=== PATIENT | male | born 1985 | race Caucasian/White ===

== ENCOUNTER 2017-08-04 09:19 | Emergency (ER) | payer OTHER ==
[2017-08-04 09:44] VITALS: TEMP 97
[2017-08-04] MEDS ORDERED: PROPARACAINE 0.5% OPHTH DROPS 15 ML BTL RIGHT EYE STA (09:47)
[2017-08-04] MEDS ORDERED: TOBRAMYCIN 0.3% OPHTH DROPS 5 ML BTL RIGHT EYE STA (10:00)
--- NOTE | 2017-08-04 10:12 | ED ---
General Adult HPI - General Chief complaint: Eye Problems Stated complaint: EYE SWELLING AND PAIN Time Seen by Provider: 08/04/17 09:45 Source: patient, RN notes reviewed Mode of arrival: ambulatory Limitations: no limitations - History of Present Illness Initial comments: Patient's a 32-year-old male who presents emergency room today with a chief complaint of foreign body sensation to the right eye. He does admit that yesterday he was chopping some wood. He denies any specific injury or trauma at the time. He states as the day went on he began having increased irritation to the right eye. He states it was locally red when he went to bed. He states it woke up this morning with increased redness and some swelling locally. Does not that he's had some watery discharge. He does admit some blurry vision at times out of the right eye. States tetanus is up-to-date. He denies any other complaints or symptoms. Patient denies any recent fever, chills, shortness of breath, chest pain, back pain, abdominal pain, nausea or vomiting, numbness or tingling, dysuria or hematuria, constipation or diarrhea, headaches or visual changes, or any other complaints. - Related Data Previous Rx's Medication Instructions Recorded Tobramycin 0.3% Ophth Soln [Tobrex 1 - 2 drop BOTH EYES QID 7 Days 08/04/17 0.3% Ophth Soln] Allergies Allergy/AdvReac Type Severity Reaction Status Date / Time morphine Allergy Unknown Verified 08/04/17 10:00 Review of Systems ROS Statement: Those systems with pertinent positive or pertinent negative responses have been documented in the HPI. ROS Other: All systems not noted in ROS Statement are negative. Past Medical History Past Medical History: No Reported History History of Any Multi-Drug Resistant Organisms: None Reported Past Surgical History: Back Surgery Additional Past Surgical History / Comment(s): spine fusion Past Psychological History: No Psychological Hx Reported Smoking Status: Current every day smoker Past Alcohol Use History: Rare Past Drug Use History: None Reported General Exam - General Exam Comments Initial Comments: General: The patient is awake and alert, in no distress, and does not appear acutely ill. Eye: Pupils are equal, round and reactive to light, extra-ocular movements are intact. No nystagmus. Redness irritation to the right conjunctivae watery discharge. Ears, nose, mouth and throat: There are moist mucous membranes and no oral lesions. Neck: The neck is supple, there is no tenderness or JVD. Cardiovascular: There is a regular rate and rhythm. No murmur, rub or gallop is appreciated. Respiratory: Lungs are clear to auscultation, respirations are non-labored, breath sounds are equal. No wheezes, stridor, rales, or rhonchi. Musculoskeletal: Normal ROM, no tenderness. Strength 5/5. Sensation intact. Pulses equal bilaterally 2+. Neurological: A&O x 3. CN II-XII intact, There are no obvious motor or sensory deficits. Coordination appears grossly intact. Speech is normal. Skin: Skin is warm and dry and no rashes or lesions are noted. Psychiatric: Cooperative, appropriate mood & affect, normal judgment. Limitations: no limitations Course Vital Signs 08/04/17 09:41 Temperature 97 F L Pulse Rate 73 Respiratory 20 Rate Blood Pressure 115/81 O2 Sat by Pulse 98 Oximetry Procedures - Procedures Initial comment: Patient's right eye was anesthetized locally with proparacaine. This did relieve his symptoms. Was stained with fluorescein checked with Wood's lamp revealing a corneal abrasion at the 9 o'clock position. Lids were inverted and no foreign bodies seen. Patient will be discharged home on antibiotics. Medical Decision Making - Medical Decision Making Patient is advised follow-up chocolate refining roller in 2 days of symptoms have not completely resolved. Was started on antibiotics here in emergency room. His tetanus is up-to-date. Disposition Clinical Impression: Corneal abrasion Disposition: HOME SELF-CARE Condition: Good Instructions: Corneal Abrasion (ED) Additional Instructions: Please follow-up chocolate refining roller in 2 days if symptoms are not completely resolved. Please use antibiotic as discussed. Please return for any other concerns. Prescriptions: Tobramycin 0.3% Ophth Soln [Tobrex 0.3% Ophth Soln] 1 - 2 drop BOTH EYES QID 7 Days Referrals: Alex Vallecillo DO [Primary Care Provider] - 1-2 days Parth Longo MD [STAFF PHYSICIAN] - 1-2 days Time of Disposition: 10:00
[2017-08-04 10:54] VITALS: BP 130/80; PULSE 85; RESP 16
== END 2017-08-04 10:54 | disposition home or self-care (01) ==
LOC: EC 09:19
DX: S05.01XA Injury of conjunctiva and corneal abrasion without foreign body, right eye, initial encounter (principal); F17.200 Nicotine dependence, unspecified, uncomplicated; Z88.5 Allergy status to narcotic agent; X58.XXXA Exposure to other specified factors, initial encounter; Y93.89 Activity, other specified
CPT/HCPCS: 99283

== ENCOUNTER 2019-01-16 10:39 | Emergency (ER) | payer OTHER ==
[2019-01-16 10:45] VITALS: BP 130/89; PULSE 80; RESP 20; TEMP 97.5
--- NOTE | 2019-01-16 11:16 | ED ---
General Adult HPI - General Chief complaint: Upper Respiratory Infection Stated complaint: ENT Time Seen by Provider: 01/16/19 10:40 Source: patient, RN notes reviewed Mode of arrival: ambulatory Limitations: no limitations - History of Present Illness Initial comments: This is a 33-year-old male who presents emergency Department complaining of a fever of 101.2 this morning. Patient states she's had quite a sore throat over the last couple of days. He states he has had a cough with only minimal sputum production. Patient did not take anything for his temperature however have taken his temperature twice currently and it is normal. Patient denies any chest pain or palpitations. Patient denies any shortness of breath. Patient denies any abdominal pain patient denies nausea vomiting diarrhea. - Related Data Home Medications Medication Instructions Recorded Confirmed Cholecalciferol [Vitamin D3] 2,000 unit PO DAILY 01/16/19 01/16/19 Cyclobenzaprine [Flexeril] 10 mg PO TID PRN 01/16/19 01/16/19 Gabapentin [Neurontin] 300 mg PO TID 01/16/19 01/16/19 Gemfibrozil [Lopid] 600 mg PO AC-BID 01/16/19 01/16/19 HYDROcodone/APAP 10-325MG [[place] 1 tab PO QID PRN 01/16/19 01/16/19 10-325] Omeprazole 40 mg PO DAILY 01/16/19 01/16/19 Propranolol HCl [Inderal Xl] 120 mg PO DAILY 01/16/19 01/16/19 ZOLMitriptan [ZOLMitriptan Odt] 2.5 mg PO DAILY PRN 01/16/19 01/16/19 Previous Rx's Medication Instructions Recorded Amoxicillin 500 mg PO Q8H #30 capsule 01/16/19 Allergies Allergy/AdvReac Type Severity Reaction Status Date / Time morphine Allergy Unknown Verified 01/16/19 11:11 Review of Systems ROS Statement: Those systems with pertinent positive or pertinent negative responses have been documented in the HPI. ROS Other: All systems not noted in ROS Statement are negative. Past Medical History Past Medical History: GERD/Reflux, Hyperlipidemia Additional Past Medical History / Comment(s): Back pain, nerve pain, Migraines History of Any Multi-Drug Resistant Organisms: None Reported Past Surgical History: Back Surgery Additional Past Surgical History / Comment(s): spine fusion Past Psychological History: No Psychological Hx Reported Smoking Status: Current every day smoker Past Alcohol Use History: Rare Past Drug Use History: None Reported General Exam - General Exam Comments Initial Comments: GENERAL: Patient is well-developed and well-nourished. Patient is nontoxic and well- hydrated and is in mild distress. ENT: Neck is soft and supple. No significant lymphadenopathy is noted. Mildly erythematous. Moist mucous membranes. Neck has full range of motion without eliciting any pain. EYES: The sclera were anicteric and conjunctiva were pink and moist. Extraocular movements were intact and pupils were equal round and reactive to light. Eyelids were unremarkable. PULMONARY: Unlabored respirations. Good breath sounds bilaterally. No audible rales rhonchi or wheezing was noted. CARDIOVASCULAR: There is a regular rate and rhythm without any murmurs gallops or rubs. ABDOMEN: Soft and nontender with normal bowel sounds. SKIN: Skin is clear with no lesions or rashes and otherwise unremarkable. NEUROLOGIC: Patient is alert and oriented x3. Cranial nerves II through XII are grossly intact. Motor and sensory are also intact. Normal speech, volume and content. Symmetrical smile. MUSCULOSKELETAL: Normal extremities with adequate strength and full range of motion. No lower extremity swelling or edema. No calf tenderness. LYMPHATICS: No significant lymphadenopathy is noted PSYCHIATRIC: Normal psychiatric evaluation. Limitations: no limitations Course Vital Signs 01/16/19 10:41 Temperature 97.5 F L Pulse Rate 80 Respiratory 20 Rate Blood Pressure 130/89 O2 Sat by Pulse 97 Oximetry Medical Decision Making - Medical Decision Making Chest x-ray shows no acute abnormality. Rapid strep is negative. Influenza was negative. - Lab Data Lab Results 01/16/19 01/16/19 Range/Units 11:15 11:15 Influenza Type A RNA Not Detected (Not Detectd) Influenza Type B (PCR) Not Detected (Not Detectd) Group A Strep Rapid Negative (Negative) Disposition Clinical Impression: Pharyngitis Disposition: HOME SELF-CARE Condition: Good Prescriptions: Amoxicillin 500 mg PO Q8H #30 capsule Is patient prescribed a controlled substance at d/c from ED?: No Referrals: [facility]inic [Primary Care Provider] - 1-2 days Time of Disposition: 13:11
--- NOTE | 2019-01-16 11:43 | XR ---
EXAMINATION TYPE: XR chest 2V DATE OF EXAM: 01/16/2019 COMPARISON: NONE HISTORY: Cough, congestion and difficulty breathing TECHNIQUE: Frontal and lateral views of the chest are obtained. FINDINGS: There is no focal air space opacity, pleural effusion, or pneumothorax seen. The cardiac silhouette size is within normal limits. The osseous structures are intact. IMPRESSION: No acute cardiopulmonary process.
== END 2019-01-16 13:34 | disposition home or self-care (01) ==
LOC: EC 10:39
DX: J02.9 Acute pharyngitis, unspecified (principal); E78.5 Hyperlipidemia, unspecified; K21.9 Gastro-esophageal reflux disease without esophagitis; F17.200 Nicotine dependence, unspecified, uncomplicated; Z79.899 Other long term (current) drug therapy; Z88.5 Allergy status to narcotic agent
CPT/HCPCS: 71046; 87081; 87430; 87502; 99283

== ENCOUNTER 2020-08-31 19:45 | Emergency (ER) | payer OTHER ==
[2020-08-31 20:01] VITALS: BP 125/83; PULSE 78; RESP 16; TEMP 97.7
[2020-08-31] MEDS ORDERED: LIDOCAINE 1% INJ 10MG/ML (20 ML MDV) SQ ONE (20:02)
--- NOTE | 2020-08-31 20:24 | ED ---
Wound/Laceration HPI - General Chief Complaint: Wound/Laceration Stated Complaint: L Finger Lac Time Seen by Provider: 08/31/20 20:02 Source: patient Mode of arrival: ambulatory Limitations: no limitations - History of Present Illness Initial Comments: Patient is a 35-year-old male presenting to emergency department with chief complaint of a laceration. Patient states he fell and lacerated his left second digit on the grill. Patient states initially was quite a bit of bleeding which is since resolved. He states he is not on blood thinners. He denies any numbness or tingling. States he has full range of motion her left second digit. States his tetanus is up-to-date. Reports the pain is minimal. This occurred about one hour prior to arrival. - Related Data Home Medications Medication Instructions Recorded Confirmed Cholecalciferol [Vitamin D3] 2,000 unit PO DAILY 01/16/19 06/03/19 Cyclobenzaprine [Flexeril] 10 mg PO TID PRN 01/16/19 06/03/19 Gabapentin [Neurontin] 300 mg PO TID 01/16/19 06/03/19 HYDROcodone/APAP 10-325MG [[place] 1 tab PO QID PRN 01/16/19 06/03/19 10-325] Omeprazole 40 mg PO AC-BRKFST 01/16/19 06/03/19 Propranolol HCl [Inderal Xl] 120 mg PO DAILY 01/16/19 06/03/19 ZOLMitriptan [ZOLMitriptan Odt] 2.5 mg PO DAILY PRN MDD 10MG 01/16/19 06/03/19 gemfibroziL [Lopid] 600 mg PO AC-BID 01/16/19 06/03/19 Rosuvastatin [Crestor] 10 mg PO HS 06/03/19 06/03/19 Allergies Allergy/AdvReac Type Severity Reaction Status Date / Time morphine Allergy Unknown Verified 08/31/20 19:59 Review of Systems ROS Statement: Those systems with pertinent positive or pertinent negative responses have been documented in the HPI. ROS Other: All systems not noted in ROS Statement are negative. Past Medical History Past Medical History: GERD/Reflux, Hyperlipidemia Additional Past Medical History / Comment(s): Back pain, nerve pain, Migraines History of Any Multi-Drug Resistant Organisms: None Reported Past Surgical History: Back Surgery Additional Past Surgical History / Comment(s): spine fusion Past Psychological History: No Psychological Hx Reported Smoking Status: Current every day smoker Past Alcohol Use History: Occasional Past Drug Use History: None Reported General Exam Limitations: no limitations General appearance: alert, in no apparent distress Head exam: Present: atraumatic, normocephalic, normal inspection Eye exam: Present: normal appearance, PERRL, EOMI Pupils: Present: normal accommodation ENT exam: Present: normal exam, normal oropharynx, mucous membranes moist Neck exam: Present: normal inspection, full ROM. Absent: tenderness, meningismus Respiratory exam: Present: normal lung sounds bilaterally. Absent: respiratory distress, wheezes, rales Cardiovascular Exam: Present: regular rate, normal rhythm, normal heart sounds. Absent: systolic murmur, diastolic murmur, rubs, gallop, clicks GI/Abdominal exam: Present: soft, normal bowel sounds. Absent: distended, tenderness, guarding, rebound, rigid Extremities exam: Present: full ROM, normal capillary refill, other (+2 ulnar and radial pulses bilaterally.). Absent: normal inspection (Superficial laceration measuring less than 1 cm the left second digit.), tenderness Back exam: Present: normal inspection, full ROM. Absent: tenderness, CVA tenderness (R), CVA tenderness (L) Neurological exam: Present: alert, oriented X3 Psychiatric exam: Present: normal affect, normal mood Skin exam: Present: warm, dry, intact, normal color Course Vital Signs 08/31/20 19:59 Temperature 97.7 F Pulse Rate 78 Respiratory 16 Rate Blood Pressure 125/83 O2 Sat by Pulse 99 Oximetry Procedures - Laceration Laceration #1 Consent Obtained: verbal consent Indication: laceration Site: hand (Left second digit) Size (cm): 1 Description: linear, clean Depth: simple, single layer Sedation/Analgesia: none Pre-repair: irrigated extensively, deep structures intact Type of Sutures: nylon Size of Sutures: 4-0 Number of Sutures: 1 Technique: simple, interrupted Patient Tolerated Procedure: well, no complications Medical Decision Making - Medical Decision Making Patient is a 35-year-old male presenting to the emergency department with a chief complaint of laceration. Physical examination patient is neurovascularly intact in the left second digit. Laceration site was thoroughly irrigated and closed with one suture. Patient tolerated procedure well. Strict return parameters were thoroughly discussed with patient admits any degree well. Case discussed with physician. Disposition Clinical Impression: Laceration Disposition: HOME SELF-CARE Condition: Stable Instructions (If sedation given, give patient instructions): Care For Your Stitches (DC), Laceration (DC) Additional Instructions: Please return to the emergency room in 8-10 days to have sutures removed. Please watch for any signs of infection which may include increased pain, swelling, redness, fever or chills. Please return to emergency room for any signs of infection do occur. Please use clean soap and water over the area to prevent scabbing over your stitches. Please leave wound covered for the first 24-48 hours and then leave wound open to air. Please return to the emergency room for any other concerns. Is patient prescribed a controlled substance at d/c from ED?: No Referrals: [facility],Clinic [Primary Care Provider] - 1-2 days Time of Disposition: 20:24
== END 2020-08-31 20:35 | disposition home or self-care (01) ==
LOC: EC 19:45
DX: S61.211A Laceration without foreign body of left index finger without damage to nail, initial encounter (principal); K21.9 Gastro-esophageal reflux disease without esophagitis; E78.5 Hyperlipidemia, unspecified; M54.9 Dorsalgia, unspecified; M79.2 Neuralgia and neuritis, unspecified; G43.909 Migraine, unspecified, not intractable, without status migrainosus; F17.200 Nicotine dependence, unspecified, uncomplicated; Z79.899 Other long term (current) drug therapy; Z88.5 Allergy status to narcotic agent; W18.09XA Striking against other object with subsequent fall, initial encounter; Y99.0 Civilian activity done for income or pay
CPT/HCPCS: 12001; 99282

== ENCOUNTER 2020-12-12 06:13 | Day surgery (SDC) | payer OTHER ==
[2020-12-06 10:28] VITALS: BMI 33.5
[~2020-12-12 06:13] MED LIST: DEXAMETHASONE SOD PHOSPHATE 4 MG/ML 1 ML VIAL IV ONE; HYDROmorphone 0.5 MG/0.5 ML SYRINGE IVP PRN; LACTATED RINGERS 1,000 ML IV SCH; Pre Op ABX Message 1 EACH MISC MISCELLANE ONE
[2020-12-12] MEDS ORDERED: ACETAMINOPHEN TAB 500 MG TAB PO STA (06:47)
[2020-12-12] MEDS ORDERED: GABAPENTIN 300 MG CAP PO STA (06:47)
--- NOTE | 2020-12-12 06:49 | P.GSHP ---
History of Present Illness H&P Date: 12/12/20 CHIEF COMPLAINT: Neck mass HISTORY OF PRESENT ILLNESS: The patient is a 35 year-old male with history of mass along the left neck. He presents today for surgical excision. PAST MEDICAL HISTORY: Please see list. PAST SURGICAL HISTORY: Please see list. MEDICATIONS: Please see list. ALLERGIES: Please see list. SOCIAL HISTORY: No illicit drug use FAMILY HISTORY: No reports of Crohn disease or ulcerative colitis. REVIEW OF ORGAN SYSTEMS: CONSTITUTIONAL: No reports of fevers or chills. GI: Denies any blood in stools or constipation. PHYSICAL EXAM: VITAL SIGNS: Stable SKIN: Well perfused. Good skin turgor. 2 cm lesion overlying the left neck Musculoskeletal: No clubbing cyanosis or edema GENERAL: Well developed and in no acute distress. Pleasant. HEENT: No sclera icterus. Extraocular movements grossly intact. Moist buccal mucosa. Head is atraumatic, normocephalic. Hears conversational speech. No nasal drainage. NECK: Supple without lymphadenopathy. No JV distention. CHEST: Non-labored respirations and equal bilateral excursions. CARDIOVASCULAR: Regular rate and rhythm. Palpable 2+ radial pulses. ABDOMEN: Soft. Non-tender. Nondistended. NEUROLOGIC: No focal or lateralizing signs. PSYCH: Appropriate affect. Alert and oriented to person, place and time. ASSESSMENT: 1. Left neck mass PLAN: 1. His lipoma appears to be deep and an injury to the nerve including decreased sensation along the shoulder was described with surgical intervention. 2. Excision under general anesthetic described. Surgery under general anesthesia presents with increased risk for cardiopulmonary events. 3. He was advised to avoid supplements such as vitamins A, D, K that may i ncrease risk for bleeding, which the patient understood. 4. Time off for recovery at least one week including wound and dressing changes described. Past Medical History Past Medical History: GERD/Reflux, Hyperlipidemia Additional Past Medical History / Comment(s): Back pain, nerve pain, Migraines History of Any Multi-Drug Resistant Organisms: None Reported Past Surgical History: Back Surgery Additional Past Surgical History / Comment(s): spine fusion Past Anesthesia/Blood Transfusion Reactions: No Reported Reaction Smoking Status: Current every day smoker - Past Family History Mother Family Medical History: No Reported History Medications and Allergies Home Medications Medication Instructions Recorded Confirmed Type Cyclobenzaprine [Flexeril] 10 mg PO TID PRN 01/16/19 12/12/20 History Omeprazole 40 mg PO AC-BRKFST 01/16/19 12/12/20 History Propranolol HCl [Inderal Xl] 120 mg PO DAILY 01/16/19 12/12/20 History ZOLMitriptan [ZOLMitriptan Odt] 2.5 mg PO DAILY PRN MDD 10MG 01/16/19 12/12/20 History gemfibroziL [Lopid] 600 mg PO AC-BID 01/16/19 12/12/20 History Rosuvastatin [Crestor] 10 mg PO HS 06/03/19 12/12/20 History Allergies Allergy/AdvReac Type Severity Reaction Status Date / Time morphine Allergy Rash/Hives Verified 12/12/20 06:42
[2020-12-12 07:03] VITALS: RESP 16; TEMP 97.3
[2020-12-12] MEDS ORDERED: LIDOCAINE 1% (10MG/ML) FOR IV START INTRADERMA ONE (07:05)
[2020-12-12] MEDS: ONDANSETRON 4 MG/2 ML VIAL IVP ONE ×3 (07:06→09:44)
[2020-12-12] MEDS ORDERED: fentaNYL (PF) 50 MCG/ML 2 ML AMP ONE (07:30)
[2020-12-12] MEDS ORDERED: PROPOFOL 10 MG/ML 20 ML VIAL IV ONE (07:30)
[2020-12-12] MEDS ORDERED: MIDAZOLAM 2 MG/2 ML VIAL ONE (07:30)
[2020-12-12] MEDS ORDERED: LIDOCAINE 1% INJ 10MG/ML (20 ML MDV) ONE (07:30)
[2020-12-12] MEDS ORDERED: SUCCINYLCHOLINE CHLORIDE 100 MG/5 ML SYR IV ONE (07:30)
[2020-12-12] MEDS ORDERED: LIDOCAINE 1%-EPI 1:100,000 20 ML VIAL SQ ONE ×2 (08:36→09:15)
[2020-12-12] MEDS ORDERED: LACTATED RINGERS 1,000 ML IV ONE (08:52)
--- NOTE | 2020-12-12 09:55 | P.OP ---
Date of Procedure: 12/12/20 Description of Procedure: SURGEON: LAKISHA OBRIEN MD [employer]: None. PREOPERATIVE DIAGNOSES: 1. Left posterior neck mass 2. Pre-existing left hand neuropathy 3. Hyperlipidemia 4. Chronic migraines 5. Chronic back pain POSTOPERATIVE DIAGNOSES: 1. Deep subfascial left posterior neck mass, 4 x 5 cm 1. Left posterior neck mass, 4 cm 2. Pre-existing left hand neuropathy 3. Hyperlipidemia 4. Chronic migraines 5. Chronic back pain PROCEDURES PERFORMED: 1. Excision of deep subfascial posterior left neck mass, 4 x 5 cm 2. Complex closure of left posterior neck incision, 5-cm Anesthesia: GETA, local Estimated Blood Loss (ml): 20 Pathology: other (neck mass) Condition: stable Disposition: same day COMPLICATIONS: None. FINDINGS: 1. 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 Benefits and risks of surgical intervention were described including bleeding, infection. Informed consent was obtained. DESCRIPTION OR PROCEDURE: In the preoperative area, the area of concern was marked with indelible marker. Patient was brought into the operating room. After general induction, he was repositioned in the left lateral decubitus position. The left neck and left shoulder were prepped and draped in a standard sterile fashion with ChloraPrep. Timeout protocol was confirmed with the surgical team regarding the patient's name, procedure to be performed including preoperative medications. DVT prophylaxis was confirmed with SCDs including heparin. A field block was placed of the left neck. At the posterior neck, a longitudinal incision was made using #15 blade. Electro-Bovie cautery including blunt dissection using hemostat was used to circumferential dissect the tumor that extended deep to the fascia of the left neck at the posterior triangle. The tumor interdigitated along the bilateral neck and base of the skull. The tumor was removed in total. Hemostasis was excellent. The incision was closed in layers 0-Vicryl was placed for fascia, 3-0 Vicryl for the deep subcutaneous tissue followed by 4-0 Monocryl for the dermis in a running subcuticular fashion. The skin was cleansed and Exofin tape with liquid was applied as a fourth layer. The incision was covered with Optifoam dressing. Local anesthetic was placed. At the end of the procedure, needle, sponge, and instrument count was verified correct by printer technician. Operative findings was shared with the patient's family who were pleased with the level of care. Plan - Discharge Summary Discharge Rx Participant: No New Discharge Prescriptions: New Ibuprofen [Motrin] 600 mg PO Q8HR PRN #30 tab PRN Reason: Pain Acetaminophen Tab [Tylenol Tab] 1,000 mg PO Q6HR PRN #30 tablet PRN Reason: Pain Continue Omeprazole 40 mg PO AC-BRKFST ZOLMitriptan [ZOLMitriptan Odt] 2.5 mg PO DAILY PRN MDD 10MG PRN Reason: Migraine Headache Propranolol HCl [Inderal Xl] 120 mg PO DAILY gemfibroziL [Lopid] 600 mg PO AC-BID Cyclobenzaprine [Flexeril] 10 mg PO TID PRN PRN Reason: MUSCLE SPASMS Rosuvastatin [Crestor] 10 mg PO HS Discharge Medication List Cyclobenzaprine [Flexeril] 10 mg PO TID PRN 01/16/19 [History] Omeprazole 40 mg PO AC-BRKFST 01/16/19 [History] Propranolol HCl [Inderal Xl] 120 mg PO DAILY 01/16/19 [History] ZOLMitriptan [ZOLMitriptan Odt] 2.5 mg PO DAILY PRN MDD 10MG 01/16/19 [History] gemfibroziL [Lopid] 600 mg PO AC-BID 01/16/19 [History] Rosuvastatin [Crestor] 10 mg PO HS 06/03/19 [History] Acetaminophen Tab [Tylenol Tab] 1,000 mg PO Q6HR PRN #30 tablet 12/12/20 [Rx] Ibuprofen [Motrin] 600 mg PO Q8HR PRN #30 tab 12/12/20 [Rx] Follow up Appointment(s)/Referral(s): Lakisha Obrien MD [STAFF PHYSICIAN] - 12/13/20 Patient Instructions/Handouts: Lipoma Removal (DC) Activity/Diet/Wound Care/Special Instructions: DO NOT REMOVE DRESSING. No lifting over 10 pounds in 2 weeks, Dec 26April shower. No bath tub soaks for two weeks, Dec 26 Diet as tolerated. Notify surgeon for temperature over 101.5, increased redness along incision, increased pain along surgical site. Discharge Disposition: HOME SELF-CARE
[2020-12-12 11:56] VITALS: BP 127/85; PULSE 77
== END 2020-12-12 11:58 | disposition home or self-care (01) ==
LOC: OR 06:13
PROVIDERS: ATTEND Surgery Plastic and Reconstructive Surgery
DX: D17.0 Benign lipomatous neoplasm of skin and subcutaneous tissue of head, face and neck (principal); E78.5 Hyperlipidemia, unspecified; G43.909 Migraine, unspecified, not intractable, without status migrainosus; G62.9 Polyneuropathy, unspecified; G89.29 Other chronic pain; M54.9 Dorsalgia, unspecified; F17.210 Nicotine dependence, cigarettes, uncomplicated; Z88.5 Allergy status to narcotic agent; K21.9 Gastro-esophageal reflux disease without esophagitis; Z98.1 Arthrodesis status; Z98.890 Other specified postprocedural states
CPT/HCPCS: 21554; 88304; J2250; J1100; J0690; J2405; J2001; J3010; J0330; J2704

== ENCOUNTER 2021-10-02 22:41 | Emergency (ER) | payer OTHER ==
[2021-10-02 22:58] VITALS: BP 147/96; PULSE 60; RESP 18; TEMP 98.1
--- NOTE | 2021-10-02 23:42 | XR ---
EXAMINATION TYPE: XR finger RT DATE OF EXAM: 10/02/2021 COMPARISON: NONE HISTORY: Pain TECHNIQUE: 3 views FINDINGS: There is nondisplaced fracture of the shaft of the distal phalanx of the ring finger right hand. Fractures longitudinal and extends from the tuft to the IP joint. There is no dislocation. Join t spaces are normal. IMPRESSION: Longitudinal nondisplaced fracture of the distal phalanx ring finger right hand.
[2021-10-03] MEDS ORDERED: ACETAMINOPHEN TAB 325 MG TAB PO STA (00:06)
[2021-10-03] MEDS ORDERED: Acetaminophen-Codeine 300-30mg TAB PO STA (00:06)
[2021-10-03] MEDS ORDERED: IBUPROFEN 800 MG TAB PO STA (00:06)
[2021-10-03] MEDS ORDERED: IBUPROFEN 600 MG STARTER PACK 4 TAB BTL PO STA (00:07)
[2021-10-03] MEDS ORDERED: ACET/COD 300 MG/30 MG STARTER PACK 6 TAB BTL PO STA (00:07)
--- NOTE | 2021-10-03 00:11 | ED ---
Upper Extremity HPI - General Chief Complaint: Extremity Injury, Upper Stated Complaint: finger injury Time Seen by Provider: 10/02/21 23:38 Source: patient, family, RN notes reviewed, old records reviewed Mode of arrival: ambulatory Limitations: no limitations - History of Present Illness Initial Comments: This is a 36-year-old male to the ER today. Patient presents today for injury, patient has significant swelling of fourth digit occurring while working. Patient is finger injury, severe pain. Swelling and bruising this injury occurred at work. He has decreased range of motion secondary to pain. Pain is severe, no significant amount underneath nailbed, no other injuries noted MD Complaint: Injury to:: left, finger (Ring) Handedness: right Place: work Severity scale (1-10): 10 Improves With: none Worsens With: none Context: direct blow Associated Symptoms: denies other symptoms Treatments Prior to Arrival: other (ice) - Related Data Home Medications Medication Instructions Recorded Confirmed Cyclobenzaprine [Flexeril] 10 mg PO TID PRN 01/16/19 12/12/20 Omeprazole 40 mg PO AC-BRKFST 01/16/19 12/12/20 Propranolol HCl [Inderal Xl] 120 mg PO DAILY 01/16/19 12/12/20 ZOLMitriptan [ZOLMitriptan Odt] 2.5 mg PO DAILY PRN MDD 10MG 01/16/19 12/12/20 gemfibroziL [Lopid] 600 mg PO AC-BID 01/16/19 12/12/20 Rosuvastatin [Crestor] 10 mg PO HS 06/03/19 12/12/20 Previous Rx's Medication Instructions Recorded Acetaminophen Tab [Tylenol Tab] 1,000 mg PO Q6HR PRN #30 tablet 12/12/20 Ibuprofen [Motrin] 600 mg PO Q8HR PRN #30 tab 12/12/20 Allergies Allergy/AdvReac Type Severity Reaction Status Date / Time morphine Allergy Rash/Hives Verified 10/02/21 22:58 Review of Systems ROS Statement: Those systems with pertinent positive or pertinent negative responses have been documented in the HPI. ROS Other: All systems not noted in ROS Statement are negative. Past Medical History Past Medical History: GERD/Reflux, Hyperlipidemia Additional Past Medical History / Comment(s): Back pain, nerve pain, Migraines History of Any Multi-Drug Resistant Organisms: None Reported Past Surgical History: Back Surgery Additional Past Surgical History / Comment(s): spine fusion Past Anesthesia/Blood Transfusion Reactions: No Reported Reaction Past Psychological History: No Psychological Hx Reported Smoking Status: Current every day smoker Past Alcohol Use History: Occasional Past Drug Use History: None Reported - Past Family History Mother Family Medical History: No Reported History General Exam Limitations: no limitations General appearance: alert, in no apparent distress Head exam: Present: atraumatic, normocephalic, normal inspection Eye exam: Present: normal appearance, PERRL, EOMI. Absent: scleral icterus, conjunctival injection, periorbital swelling ENT exam: Present: normal exam, mucous membranes moist Neck exam: Present: normal inspection. Absent: tenderness, meningismus, lymphadenopathy Respiratory exam: Present: normal lung sounds bilaterally. Absent: respiratory distress, wheezes, rales, rhonchi, stridor Cardiovascular Exam: Present: regular rate, normal rhythm, normal heart sounds. Absent: systolic murmur, diastolic murmur, rubs, gallop, clicks GI/Abdominal exam: Present: soft, normal bowel sounds. Absent: distended, tenderness, guarding, rebound, rigid Extremities exam: Present: normal inspection, full ROM, normal capillary refill, other (severe swelling and bruising of his right ring finger). Absent: tenderness, pedal edema, joint swelling, calf tenderness Back exam: Present: normal inspection Neurological exam: Present: alert, oriented X3, CN II-XII intact Psychiatric exam: Present: normal affect, normal mood Skin exam: Present: warm, dry, intact, normal color. Absent: rash Course Vital Signs 10/02/21 22:56 Temperature 98.1 F Pulse Rate 60 Respiratory 18 Rate Blood Pressure 147/96 O2 Sat by Pulse 96 Oximetry - Reevaluation(s) Reevaluation #1: 10/03/21 00:09 Medical records reviewed Reevaluation #2: 10/03/21 00:09 Pain is improved Reevaluation #3: 10/03/21 00:09 Patient informed results and questions answered Medical Decision Making - Medical Decision Making 36 male to the emergency. Patient significant swelling of right ring finger secondary to traumatic injury. Patient does have fracture noted of the distal phalanx, patient given splint pain control can be discharged home - Radiology Data Radiology results: report reviewed (X-ray right hand positive for fracture), image reviewed Disposition Clinical Impression: Fracture of phalanx of ring finger, Finger fracture, right Disposition: HOME SELF-CARE Condition: Good Instructions (If sedation given, give patient instructions): Finger Fracture (ED) Is patient prescribed a controlled substance at d/c from ED?: No Referrals: [facility],Clinic [Primary Care Provider] - 1-2 days
== END 2021-10-03 00:48 | disposition home or self-care (01) ==
LOC: EC 22:41
DX: S62.634A Displaced fracture of distal phalanx of right ring finger, initial encounter for closed fracture (principal); K21.9 Gastro-esophageal reflux disease without esophagitis; E78.5 Hyperlipidemia, unspecified; F17.200 Nicotine dependence, unspecified, uncomplicated; Z88.5 Allergy status to narcotic agent; X58.XXXA Exposure to other specified factors, initial encounter
CPT/HCPCS: 99284

== ENCOUNTER 2021-10-25 08:38 | Emergency (ER) | payer OTHER ==
[2021-10-25 08:57] VITALS: RESP 18
[2021-10-25] MEDS ORDERED: ACETAMINOPHEN TAB 500 MG TAB PO STA (08:58)
[2021-10-25] MEDS ORDERED: IBUPROFEN 600 MG TAB PO STA (08:58)
[2021-10-25] MEDS ORDERED: ACETAMINOPHEN TAB 325 MG TAB PO STA (09:02)
--- NOTE | 2021-10-25 10:24 | ED ---
General Adult HPI - General Chief complaint: ENT Stated complaint: Fever/Headache/Sore throat Time Seen by Provider: 10/25/21 08:58 Source: patient, RN notes reviewed Mode of arrival: ambulatory Limitations: no limitations - History of Present Illness Initial comments: This a 36-year-old male presents emergency Department with complaint of fever or chills sore throat mild congestion. Symptoms started this morning. Patient was sent in for COVID-19 testing. Denies any chest pain or shortness breath no GI symptoms including nausea, vomiting, diarrhea constipation. - Related Data Home Medications Medication Instructions Recorded Confirmed Cyclobenzaprine [Flexeril] 10 mg PO TID PRN 01/16/19 12/12/20 Omeprazole 40 mg PO AC-BRKFST 01/16/19 12/12/20 Propranolol HCl [Inderal Xl] 120 mg PO DAILY 01/16/19 12/12/20 ZOLMitriptan [ZOLMitriptan Odt] 2.5 mg PO DAILY PRN MDD 10MG 01/16/19 12/12/20 gemfibroziL [Lopid] 600 mg PO AC-BID 01/16/19 12/12/20 Rosuvastatin [Crestor] 10 mg PO HS 06/03/19 12/12/20 Previous Rx's Medication Instructions Recorded Acetaminophen Tab [Tylenol Tab] 1,000 mg PO Q6HR PRN #30 tablet 12/12/20 Ibuprofen [Motrin] 600 mg PO Q8HR PRN #30 tab 12/12/20 Allergies Allergy/AdvReac Type Severity Reaction Status Date / Time morphine Allergy Rash/Hives Verified 10/25/21 08:57 Review of Systems ROS Statement: Those systems with pertinent positive or pertinent negative responses have been documented in the HPI. ROS Other: All systems not noted in ROS Statement are negative. Past Medical History Past Medical History: GERD/Reflux, Hyperlipidemia Additional Past Medical History / Comment(s): Back pain, nerve pain, Migraines History of Any Multi-Drug Resistant Organisms: None Reported Past Surgical History: Back Surgery Additional Past Surgical History / Comment(s): spine fusion Past Anesthesia/Blood Transfusion Reactions: No Reported Reaction Past Psychological History: No Psychological Hx Reported Smoking Status: Current every day smoker Past Alcohol Use History: Rare Past Drug Use History: None Reported - Past Family History Mother Family Medical History: No Reported History General Exam Limitations: no limitations General appearance: alert, in no apparent distress Head exam: Present: atraumatic, normocephalic, normal inspection Eye exam: Present: normal appearance, PERRL, EOMI. Absent: scleral icterus, conjunctival injection, periorbital swelling ENT exam: Present: normal exam, normal oropharynx, mucous membranes moist Neck exam: Present: normal inspection, full ROM. Absent: tenderness, meningismus, lymphadenopathy Respiratory exam: Present: normal lung sounds bilaterally. Absent: respiratory distress, wheezes, rales, rhonchi, stridor Cardiovascular Exam: Present: normal rhythm, tachycardia, normal heart sounds. Absent: systolic murmur, diastolic murmur, rubs, gallop, clicks Course Vital Signs 10/25/21 10/25/21 08:55 09:02 Temperature 99.8 F H Pulse Rate 109 H Respiratory 18 18 Rate Blood Pressure 119/84 O2 Sat by Pulse 97 Oximetry Medical Decision Making - Medical Decision Making Patient is COVID-19 positive for receive monoclonal antibodies will be discharged in stable condition. - Lab Data Lab Results 10/25/21 Range/Units 09:06 Coronavirus (PCR) Detected A (Not Detectd) Disposition Clinical Impression: COVID-19 Disposition: HOME SELF-CARE Condition: Stable Instructions (If sedation given, give patient instructions): Coronavirus Disease 2019 (COVID-19) Additional Instructions: Please return to the Emergency Department if symptoms worsen or any other concerns. Is patient prescribed a controlled substance at d/c from ED?: No Referrals: [facility],Clinic [Primary Care Provider] - 1-2 days Time of Disposition: 10:24
[2021-10-25] MEDS ORDERED: BAMLANIVIMAB (EUA) 700 MG, ETESEVIMAB (EUA) 1,400 MG in SODIUM CHLORIDE 0.9% 50 ML IVPB ONE (11:00)
[2021-10-25] MEDS ORDERED: SODIUM CHLORIDE 0.9% 50 ML IVPB ONE (11:00)
[2021-10-25 12:30] VITALS: BP 114/79; PULSE 88; TEMP 98.3
== END 2021-10-25 12:30 | disposition home or self-care (01) ==
LOC: EC 08:38
DX: U07.1 COVID-19 (principal); K21.9 Gastro-esophageal reflux disease without esophagitis; E78.5 Hyperlipidemia, unspecified; F17.200 Nicotine dependence, unspecified, uncomplicated; Z88.5 Allergy status to narcotic agent
CPT/HCPCS: 99283; 96365; 87635; J3490

== ENCOUNTER 2022-09-06 10:54 | Day surgery (SDC) | payer OTHER ==
[2022-09-04 09:37] VITALS: BMI 33.5
[~2022-09-06 10:54] MED LIST changes: -HYDROmorphone 0.5 MG/0.5 ML SYRINGE IVP PRN; -LACTATED RINGERS 1,000 ML IV SCH; +ONDANSETRON 4 MG/2 ML VIAL IVP ONE; +fentaNYL (PF) 50 MCG/ML 2 ML AMP IV PRN
[2022-09-06] MEDS ORDERED: ACETAMINOPHEN TAB 500 MG TAB PO STA (11:48)
--- NOTE | 2022-09-06 11:48 | P.GSHP ---
History of Present Illness H&P Date: 09/06/22 CHIEF COMPLAINT: Neck mass HISTORY OF PRESENT ILLNESS: The patient is a 37 year-old male with history of mass along the posterior neck with recurrence over a year ago. He presents today for surgical excision. PAST MEDICAL HISTORY: Please see list. PAST SURGICAL HISTORY: Please see list. MEDICATIONS: Please see list. ALLERGIES: Please see list. SOCIAL HISTORY: No illicit drug use FAMILY HISTORY: No reports of Crohn disease or ulcerative colitis. REVIEW OF ORGAN SYSTEMS: CONSTITUTIONAL: No reports of fevers or chills. GI: Denies any blood in stools or constipation. PHYSICAL EXAM: VITAL SIGNS: Stable SKIN: Well perfused. Good skin turgor. 4 cm lesion overlying the posterior neck. Musculoskeletal: No clubbing cyanosis or edema GENERAL: Well developed and in no acute distress. Pleasant. HEENT: No sclera icterus. Extraocular movements grossly intact. Moist buccal mucosa. Head is atraumatic, normocephalic. Hears conversational speech. No nasal drainage. NECK: Supple without lymphadenopathy. No JV distention. CHEST: Non-labored respirations and equal bilateral excursions. CARDIOVASCULAR: Regular rate and rhythm. Palpable 2+ radial pulses. ABDOMEN: Soft. Non-tender. Nondistended. NEUROLOGIC: No focal or lateralizing signs. PSYCH: Appropriate affect. Alert and oriented to person, place and time. ASSESSMENT: 1. Posterior neck mass PLAN: 1. Will proceed of excision of posterior neck mass 2. DVT prophylaxis. 3. Antibiotic prophylaxis. 4. Time of recovery, at least one week. Past Medical History Past Medical History: GERD/Reflux, Hyperlipidemia Additional Past Medical History / Comment(s): Back pain, nerve pain, Migraines, History of Any Multi-Drug Resistant Organisms: None Reported Past Surgical History: Back Surgery, Orthopedic Surgery Additional Past Surgical History / Comment(s): spine fusion, LT NECK MASS 12/12/20, LT KNEE SCOPE Past Anesthesia/Blood Transfusion Reactions: No Reported Reaction Smoking Status: Current every day smoker - Past Family History Mother Family Medical History: No Reported History Medications and Allergies Home Medications Medication Instructions Recorded Confirmed Type Cyclobenzaprine [Flexeril] 10 mg PO TID PRN 01/16/19 09/06/22 History Propranolol HCl [Inderal Xl] 120 mg PO DAILY 01/16/19 09/06/22 History ZOLMitriptan [Zomig ZMT] 2.5 mg PO DAILY PRN MDD 10MG 01/16/19 09/06/22 History gemfibroziL [Lopid] 600 mg PO AC-BID 01/16/19 09/06/22 History Rosuvastatin [Crestor] 10 mg PO HS 06/03/19 09/06/22 History HYDROcodone/APAP 10-325MG [[place] 1 tab PO Q6HR PRN 09/04/22 09/06/22 History 10-325] Omeprazole [PriLOSEC] 20 mg PO AC-BRKFST PRN MDD 1 09/06/22 09/06/22 History Allergies Allergy/AdvReac Type Severity Reaction Status Date / Time morphine Allergy Rash/Hives Verified 09/06/22 11:41
[2022-09-06] MEDS ORDERED: GABAPENTIN 300 MG CAP PO STA (11:49)
[2022-09-06] MEDS ORDERED: MELOXICAM 7.5 MG TAB PO SCH (12:00)
[2022-09-06] MEDS: LACTATED RINGERS 1,000 ML IV SCH ×2 (12:03→12:27)
[2022-09-06 12:18] LABS: Basophils # (A) 0.1 k/uL (0-0.2); Basophils % (A) 0 %; Eosinophils # (A) 0.5 k/uL (0-0.7); Eosinophils % (A) 4 %; HCT 45.8 % (39.0-53.0); HGB 16.1 gm/dL (13.0-17.5); Lymphocytes # (A) 2.5 k/uL (1.0-4.8); Lymphocytes % (A) 20 %; MCH 29.1 pg (25.0-35.0); MCHC 35.2 g/dL (31.0-37.0); MCV 82.6 fL (80.0-100.0); Mean Platelet Volume 7.4; Monocytes # (A) 0.7 k/uL (0-1.0); Monocytes % (A) 6 %; Neutrophils % (A) 70 %; Platelet Count 262 k/uL (150-450); RBC 5.54 m/uL (4.30-5.90); RDW 12.5 % (11.5-15.5); WBC 12.9 k/uL (3.8-10.6)
[2022-09-06] MEDS ORDERED: ROCURONIUM 10 MG/ML (5 ML VIAL) IV ONE (12:24)
[2022-09-06] MEDS ORDERED: SUCCINYLCHOLINE CHLORIDE 200 MG/10 ML VIAL IV ONE (12:24)
[2022-09-06] MEDS ORDERED: LIDOCAINE 2% INJ 20 MG/ML (2 ML VIAL) ONE (12:24)
[2022-09-06] MEDS ORDERED: MIDAZOLAM 2 MG/2 ML VIAL ONE (12:24)
[2022-09-06] MEDS ORDERED: GLYCOPYRROLATE 0.2 MG/ML 2 ML VIAL ONE (12:24)
[2022-09-06] MEDS ORDERED: PROPOFOL 10 MG/ML 20 ML VIAL IV ONE (12:24)
[2022-09-06] MEDS ORDERED: fentaNYL (PF) 50 MCG/ML 2 ML AMP ONE (12:24)
[2022-09-06] MEDS ORDERED: NEOSTIGMINE 1 MG/ML 10 ML VIAL ONE (12:24)
[2022-09-06] MEDS ORDERED: PHENYLEPHRINE-0.9% NACL SYG 1,000 MCG/10 ML SYRINGE ONE (12:24)
[2022-09-06 12:29] LABS: ALT 34 U/L (4-49); AST 26 U/L (17-59); African American GFR (CKD) >90 (>60 ml/min/1.73 sqM); Albumin 4.5 g/dL (3.5-5.0); Alkaline Phosphatase 57 U/L (38-126); Anion Gap 10 mmol/L; Blood Urea Nitrogen 13 mg/dL (9-20); Calcium 9.4 mg/dL (8.4-10.2); Carbon Dioxide 24 mmol/L (22-30); Chloride 105 mmol/L (98-107); Glucose 104 mg/dL (74-99); Non-African American GFR(CKD) >90 (>60 ml/min/1.73 sqM); Sodium 139 mmol/L (137-145); Total Bilirubin 0.5 mg/dL (0.2-1.3); Total Protein 7.4 g/dL (6.3-8.2)
[2022-09-06] MEDS ORDERED: LIDOCAINE 1%-EPI 1:100,000 20 ML VIAL SQ ONE (13:11)
[2022-09-06 13:53] VITALS: TEMP 96.9
--- NOTE | 2022-09-06 14:24 | P.OP ---
Date of Procedure: 09/06/22 Description of Procedure: SURGEON: LAKISHA OBRIEN MD ORNITHOLOGY TEACHER: None. PREOPERATIVE DIAGNOSES: 1. Posterior neck mass 2. Chronic migraines 3. Chronic back pain 4. Tobacco abuse disorder 5. Hyperlipidemia 6. History of spinal fusion POSTOPERATIVE DIAGNOSES: 1. Deep subfascial posterior neck mass, 3 x 3 cm 2. Chronic migraines 3. Chronic back pain 4. Tobacco abuse disorder 5. Hyperlipidemia 6. History of spinal fusion PROCEDURES PERFORMED: 1. Excision of deep subfascial posterior left neck mass, 3 x 3 cm 2. Complex closure of left posterior neck incision, 4-cm Anesthesia: GETA, local Estimated Blood Loss (ml): 5 Pathology: other (neck mass) Condition: stable Disposition: same day COMPLICATIONS: None. FINDINGS: 1. 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 He had prior excision almost 2 years ago. Benefits and risks of surgical intervention were described including bleeding, infection. Informed consent was obtained. DESCRIPTION OR PROCEDURE: In the preoperative area, the area of concern was marked with indelible marker. Patient was brought into the operating room. After general induction, he was repositioned in the left lateral decubitus position. The left neck and left shoulder were prepped and draped in a standard sterile fashion with ChloraPrep. Timeout protocol was confirmed with the surgical team regarding the patient's name, procedure to be performed including preoperative medications. DVT prophylaxis was confirmed with SCDs including heparin. A field block was placed of the left neck. Local anesthetic was placed.At the posterior neck, a longitudinal incision was made using #15 blade of 4 cm. Electro-Bovie cautery including blunt dissection using hemostat was used to circumferential dissect the tumor that extended deep to the fascia of the left neck. Recurrent poorly delineated fatty lipoma along posterior neck was excised. The tumor was removed. Hemostasis was checked. The incision was closed in layers 0-Vicryl was placed for fascia and subcutaneous tissue, followed by 3-0 Monocryl for the dermis in a running subcuticular fashion. The skin was cleansed and Exofin tape with liquid was applied. The incision was covered with Optifoam dressing. At the end of the procedure, needle, sponge, and instrument count was verified correct by rn medical surgical. Operative findings was shared with the patient's family. Plan - Discharge Summary Discharge Rx Participant: No New Discharge Prescriptions: New Ibuprofen [Motrin] 600 mg PO Q8HR PRN #30 tab PRN Reason: Pain Acetaminophen Tab [Tylenol Tab] 1,000 mg PO Q6HR PRN #30 tablet PRN Reason: Pain Continue ZOLMitriptan [Zomig ZMT] 2.5 mg PO DAILY PRN MDD 10MG PRN Reason: Migraine Headache Propranolol HCl [Inderal Xl] 120 mg PO DAILY gemfibroziL [Lopid] 600 mg PO AC-BID Cyclobenzaprine [Flexeril] 10 mg PO TID PRN PRN Reason: MUSCLE SPASMS Rosuvastatin [Crestor] 10 mg PO HS Omeprazole [PriLOSEC] 20 mg PO AC-BRKFST PRN MDD 1 PRN Reason: Heartburn HYDROcodone/APAP 10-325MG [[place] 10-325] 1 tab PO Q6HR PRN PRN Reason: Pain Discharge Medication List Cyclobenzaprine [Flexeril] 10 mg PO TID PRN 01/16/19 [History] Propranolol HCl [Inderal Xl] 120 mg PO DAILY 01/16/19 [History] ZOLMitriptan [Zomig ZMT] 2.5 mg PO DAILY PRN MDD 10MG 01/16/19 [History] gemfibroziL [Lopid] 600 mg PO AC-BID 01/16/19 [History] Rosuvastatin [Crestor] 10 mg PO HS 06/03/19 [History] HYDROcodone/APAP 10-325MG [[place] 10-325] 1 tab PO Q6HR PRN 09/04/22 [History] Acetaminophen Tab [Tylenol Tab] 1,000 mg PO Q6HR PRN #30 tablet 09/06/22 [Rx] Ibuprofen [Motrin] 600 mg PO Q8HR PRN #30 tab 09/06/22 [Rx] Omeprazole [PriLOSEC] 20 mg PO AC-BRKFST PRN MDD 1 09/06/22 [History] Follow up Appointment(s)/Referral(s): Lakisha Obrien MD [STAFF PHYSICIAN] - 09/11/22 Patient Instructions/Handouts: Effects of Smoking, Alcohol, and Medicines on (GEN), How to Stop Smoking (DC), Lipoma Removal (DC) Activity/Diet/Wound Care/Special Instructions: HAD TYLENOL EXTRA STRENGTH AT 12:11 DO NOT REMOVE DRESSING KEEP DRESSING DRY. Use ice along the dressing to minimize bruising. May gently wash around the dressing with soap and water. Please take Tylenol, Aleve, or ibuprofen scheduled for next 2-3 days for pain and inflammation. Discharge Disposition: HOME SELF-CARE
[2022-09-06 14:42] VITALS: RESP 16
[2022-09-06 14:43] VITALS: BP 117/79; PULSE 75
== END 2022-09-06 14:59 | disposition home or self-care (01) ==
LOC: OR 10:54
PROVIDERS: ATTEND Surgery Plastic and Reconstructive Surgery
DX: D17.0 Benign lipomatous neoplasm of skin and subcutaneous tissue of head, face and neck (principal); K21.9 Gastro-esophageal reflux disease without esophagitis; E78.5 Hyperlipidemia, unspecified; G43.909 Migraine, unspecified, not intractable, without status migrainosus; M54.9 Dorsalgia, unspecified; M79.2 Neuralgia and neuritis, unspecified; F17.200 Nicotine dependence, unspecified, uncomplicated; G89.29 Other chronic pain; Z98.890 Other specified postprocedural states; Z79.1 Long term (current) use of non-steroidal anti-inflammatories (NSAID); Z79.899 Other long term (current) drug therapy; Z88.5 Allergy status to narcotic agent; Z98.1 Arthrodesis status
CPT/HCPCS: 11403; 13132; 88304; 80053; 85025; J2250; J0330; J1100; J2710; J0690; J2405; J3010; J2370; J2704; J2001

== ENCOUNTER 2023-08-14 12:21 | Emergency (ER) | payer OTHER ==
--- NOTE | 2023-08-14 12:25 | ED ---
General Adult HPI - General Stated complaint: Upper Resp. Time Seen by Provider: 08/14/23 12:24 Source: patient, RN notes reviewed Mode of arrival: ambulatory Limitations: no limitations - History of Present Illness Initial comments: 38-year-old male presents emergency from for evaluation of cough and cold-like symptoms. Patient states started late last week. Patient states symptoms are progressively worsening. He states he has productive cough. Patient states that he does feel mildly short of breath patient reported fever at home due to multifocal with tests which were negative at home. Patient states he has increasing nasal congestion, sore throat. - Related Data Home Medications Medication Instructions Recorded Confirmed Cyclobenzaprine [Flexeril] 10 mg PO TID PRN 01/16/19 09/06/22 Propranolol HCl [Inderal Xl] 120 mg PO DAILY 01/16/19 09/06/22 ZOLMitriptan [Zomig ZMT] 2.5 mg PO DAILY PRN MDD 10MG 01/16/19 09/06/22 gemfibroziL [Lopid] 600 mg PO AC-BID 01/16/19 09/06/22 Rosuvastatin [Crestor] 10 mg PO HS 06/03/19 09/06/22 HYDROcodone/APAP 10-325MG [[place] 1 tab PO Q6HR PRN 09/04/22 09/06/22 10-325] Omeprazole [PriLOSEC] 20 mg PO AC-BRKFST PRN MDD 1 09/06/22 09/06/22 Previous Rx's Medication Instructions Recorded Acetaminophen Tab [Tylenol Tab] 1,000 mg PO Q6HR PRN #30 tablet 09/06/22 Ibuprofen [Motrin] 600 mg PO Q8HR PRN #30 tab 09/06/22 Amoxic-Pot Clav 875-125Mg 1 tab PO Q12HR 7 Days #14 tab 04/05/23 [Augmentin 875-125] Ibuprofen [Motrin] 800 mg PO Q8H PRN #20 tab 04/05/23 Amoxic-Pot Clav 875-125Mg 1 tab PO Q12HR #20 tab 08/14/23 [Augmentin 875-125] Allergies Allergy/AdvReac Type Severity Reaction Status Date / Time morphine Allergy Rash/Hives Verified 08/14/23 12:55 Review of Systems ROS Statement: Those systems with pertinent positive or pertinent negative responses have been documented in the HPI. ROS Other: All systems not noted in ROS Statement are negative. Past Medical History Past Medical History: GERD/Reflux, Hyperlipidemia Additional Past Medical History / Comment(s): Back pain, nerve pain, Migraines History of Any Multi-Drug Resistant Organisms: None Reported Past Surgical History: Back Surgery Additional Past Surgical History / Comment(s): spine fusion, lipoma removal x 2 Past Anesthesia/Blood Transfusion Reactions: No Reported Reaction Past Psychological History: No Psychological Hx Reported Smoking Status: Current every day smoker Past Alcohol Use History: Rare Past Drug Use History: None Reported - Past Family History Mother Family Medical History: No Reported History General Exam - General Exam Comments Initial Comments: Visual Physical Exam Vital signs reviewed General: Well-appearing, nontoxic, no acute distress. Head: Normocephalic, atraumatic Eyes: PERRLA, EOMI ENT: Airway patent Chest: Nonlabored breathing Skin: No visual rash, normal skin tone Neuro: Alert and oriented 3 Musculoskeletal: No gross abnormalities Limitations: no limitations General appearance: alert, in no apparent distress Head exam: Present: atraumatic, normocephalic, normal inspection Eye exam: Present: normal appearance, PERRL, EOMI. Absent: scleral icterus, conjunctival injection, periorbital swelling ENT exam: Present: normal exam, normal oropharynx, mucous membranes moist Neck exam: Present: normal inspection, full ROM. Absent: tenderness, meningismus, lymphadenopathy Respiratory exam: Present: normal lung sounds bilaterally. Absent: respiratory distress, wheezes, rales, rhonchi, stridor Cardiovascular Exam: Present: regular rate, normal rhythm, normal heart sounds. Absent: systolic murmur, diastolic murmur, rubs, gallop, clicks Course Vital Signs 08/14/23 08/14/23 12:52 15:08 Temperature 98.2 F 97.5 F L Pulse Rate 72 70 Respiratory 18 16 Rate Blood Pressure 141/97 123/85 O2 Sat by Pulse 98 98 Oximetry Medical Decision Making - Medical Decision Making I performed a quick note portion of this Chart signed Alex Aparicio PA-C Was pt. sent in by a medical professional or institution (, BILL, CURRICULUM DESIGNER, urgent care, hospital, or retirement...) When possible be specific @ -No Did you speak to anyone other than the patient for history (EMS, parent, family, police, friend...)? What history was obtained from this source @ -No Did you review nursing and triage notes (agree or disagree)? Why? @ -I reviewed and agree with nursing and triage notes Were old charts reviewed (outside hosp., previous admission, EMS record, old EKG, old radiological studies, urgent care reports/EKG's, retirement records)? Report findings @ -No old charts were reviewed Differential Diagnosis (chest pain, altered mental status, abdominal pain women, abdominal pain men, vaginal bleeding, weakness, fever, dyspnea, syncope, headache, dizziness, GI bleed, back pain, seizure, CVA, palpatations, mental health, musculoskeletal)? @ -URI, pneumonia, covid RSV, I influenza EKG interpreted by me (3pts min.). @ -None X-rays interpreted by me (1pt min.). @ -Chest x-ray shows no cardiopulmonary process CT interpreted by me (1pt min.). @ -None done U/S interpreted by me (1pt. min.). @ -None done What testing was considered but not performed or refused? (CT, X-rays, U/S, labs)? Why? @ -None What meds were considered but not given or refused? Why? @ -None Did you discuss the management of the patient with other professionals (professionals i.e. , PA, CURRICULUM DESIGNER, lab, RT, psych nurse, social science research assistant, driver sales, teacher, fire officer, custodial operations manager)? Give summary @ -No Was smoking cessation discussed for >3mins.? @ -No Was critical care preformed (if so, how long)? @ -No Were there social determinants of health that impacted care today? How? (Homelessness, low income, unemployed, alcoholism, drug addiction, transportation, low edu. Level, literacy, decrease access to med. care, retirement, rehab)? @ -No Was there de-escalation of care discussed even if they declined (Discuss DNR or withdrawal of care, Hospice)? DNR status @ -No What co-morbidities impacted this encounter? (DM, HTN, Smoking, COPD, CAD, Cancer, CVA, ARF, Chemo, Hep., AIDS, mental health diagnosis, sleep apnea, morbid obesity)? @ -None Was patient admitted / discharged? Hospital course, mention meds given and route, prescriptions, significant lab abnormalities, going to OR and other pertinent info. @ -Discharged patient (negative x-rays unremarkable patient does have symptoms and physical tracheobronchitis we discharged in stable condition return parameters were discussed. Undiagnosed new problem with uncertain prognosis? @ -No Drug Therapy requiring intensive monitoring for toxicity (Heparin, Nitro, Insulin, Cardizem)? @ -No Were any procedures done? @ -No Diagnosis/symptom? @ -Tracheobronchitis Acute, or Chronic, or Acute on Chronic? @ -Acute Uncomplicated (without systemic symptoms) or Complicated (systemic symptoms)? @ -[uncomplicated Side effects of treatment? @ -No Exacerbation, Progression, or Severe Exacerbation? @ -No Poses a threat to life or bodily function? How? (Chest pain, [place], [place], pneumonia, PE, COPD, DKA, ARF, appy, cholecystitis, CVA, Diverticulitis, Homicidal, Suicidal, threat to staff... and all critical care pts) @ -No - Lab Data Lab Results 08/14/23 Range/Units 12:58 Influenza Type A (PCR) Not Detected (Not Detectd) Influenza Type B (PCR) Not Detected (Not Detectd) RSV (PCR) Not Detected (Not Detectd) SARS-CoV-2 (PCR) Not Detected (Not Detectd) Disposition Clinical Impression: Tracheobronchitis Disposition: HOME SELF-CARE Condition: Stable Instructions (If sedation given, give patient instructions): Upper Respiratory Infection (ED) Additional Instructions: Please return to the Emergency Department if symptoms worsen or any other concerns. Prescriptions: Amoxic-Pot Clav 875-125Mg [Augmentin 875-125] 1 tab PO Q12HR #20 tab Is patient prescribed a controlled substance at d/c from ED?: No Referrals: [facility],Clinic [Primary Care Provider] - 1-2 days Time of Disposition: 14:35
--- NOTE | 2023-08-14 14:03 | XR ---
EXAMINATION TYPE: XR chest 2V DATE OF EXAM: 08/14/2023 COMPARISON: 01/16/2019 INDICATION: Short of breath TECHNIQUE: Frontal and lateral views of the chest are obtained. FINDINGS: The heart size is normal. The pulmonary vasculature is normal. The lungs are clear. IMPRESSION: 1. No acute pulmonary process.
[2023-08-15 15:42] VITALS: BP 123/85; PULSE 70; RESP 16; TEMP 97.5
== END 2023-08-14 16:04 | disposition home or self-care (01) ==
LOC: EC 12:21
DX: J40 Bronchitis, not specified as acute or chronic (principal); K21.9 Gastro-esophageal reflux disease without esophagitis; E78.5 Hyperlipidemia, unspecified; F17.200 Nicotine dependence, unspecified, uncomplicated; Z79.899 Other long term (current) drug therapy; Z88.5 Allergy status to narcotic agent; Z20.822 Contact with and (suspected) exposure to COVID-19
CPT/HCPCS: 71046; 87636; 99283

== ENCOUNTER 2023-09-11 10:06 | Emergency (ER) | payer OTHER ==
[2023-09-11] MEDS ORDERED: DEXAMETHASONE SOD PHOSPHATE 10 MG/ML 1 ML VIAL IVP STA (10:56)
[2023-09-11] MEDS ORDERED: SODIUM CHLORIDE 0.9% 500 ML 500 ML IV STA (10:56)
--- NOTE | 2023-09-11 11:06 | ED ---
General Adult HPI - General Chief complaint: Neck Pain/Injury Stated complaint: neck/head pain Time Seen by Provider: 09/11/23 10:33 Source: patient Mode of arrival: ambulatory Limitations: no limitations - History of Present Illness Initial comments: The patient's a 38-year-old gentleman with a history of hyperlipidemia, migraines, chronic pain and GERD who presents with complaints of left-sided neck pain, headaches and paresthesias to the left side of the face. Patient states that his symptoms started Saturday when he woke up in the morning. He had pain to the left side of the neck at the base of the skull. He states that it progressively worsened over the last few days. States it feels as though it's going up and through the head behind the eye. he has some burning to the left side of the face occassional and occasional hearing usses. he denies any paralysis or facial droop. He is moving all of his extremities. he denies any fevers. denies weakness. he has some sensitivity to light. he states this feels different from his usual migraines. he did take is zomatriptan, hydrocodone and flexeril without improvement. - Related Data Home Medications Medication Instructions Recorded Confirmed Cyclobenzaprine [Flexeril] 10 mg PO TID PRN 01/16/19 09/06/22 Propranolol HCl [Inderal Xl] 120 mg PO DAILY 01/16/19 09/06/22 ZOLMitriptan [Zomig ZMT] 2.5 mg PO DAILY PRN MDD 10MG 01/16/19 09/06/22 gemfibroziL [Lopid] 600 mg PO AC-BID 01/16/19 09/06/22 Rosuvastatin [Crestor] 10 mg PO HS 06/03/19 09/06/22 HYDROcodone/APAP 10-325MG [[place] 1 tab PO Q6HR PRN 09/04/22 09/06/22 10-325] Omeprazole [PriLOSEC] 20 mg PO AC-BRKFST PRN MDD 1 09/06/22 09/06/22 Previous Rx's Medication Instructions Recorded Acetaminophen Tab [Tylenol Tab] 1,000 mg PO Q6HR PRN #30 tablet 09/06/22 Ibuprofen [Motrin] 600 mg PO Q8HR PRN #30 tab 09/06/22 Amoxic-Pot Clav 875-125Mg 1 tab PO Q12HR 7 Days #14 tab 04/05/23 [Augmentin 875-125] Ibuprofen [Motrin] 800 mg PO Q8H PRN #20 tab 04/05/23 Amoxic-Pot Clav 875-125Mg 1 tab PO Q12HR #20 tab 08/14/23 [Augmentin 875-125] Butalb/APAP/Caff 50-325-40Mg 1 tab PO Q6H PRN #12 tablet 09/11/23 [Fioricet 50-325-40] Gabapentin [Neurontin] 100 mg PO BID 7 Days #14 cap 09/11/23 Allergies Allergy/AdvReac Type Severity Reaction Status Date / Time morphine Allergy Rash/Hives Verified 09/11/23 10:11 Review of Systems ROS Statement: Those systems with pertinent positive or pertinent negative responses have been documented in the HPI. ROS Other: All systems not noted in ROS Statement are negative. Past Medical History Past Medical History: GERD/Reflux, Hyperlipidemia Additional Past Medical History / Comment(s): Back pain, nerve pain, Migraines History of Any Multi-Drug Resistant Organisms: None Reported Past Surgical History: Back Surgery Additional Past Surgical History / Comment(s): spine fusion, lipoma removal x 2 Past Anesthesia/Blood Transfusion Reactions: No Reported Reaction Past Psychological History: No Psychological Hx Reported Smoking Status: Current every day smoker Past Alcohol Use History: Rare Past Drug Use History: None Reported - Past Family History Mother Family Medical History: No Reported History General Exam Limitations: no limitations General appearance: alert, in no apparent distress Head exam: Present: atraumatic Eye exam: Present: normal appearance, PERRL, EOMI Pupils: Present: normal accommodation ENT exam: Present: normal exam, mucous membranes moist Neck exam: Present: normal inspection, full ROM. Absent: other (Neurologically intact. Pain at the insertion site of the trapezius on the left. Pain over the left occipital scalp. Normal range of motion and strength of the upper extremitiess bilaterally) Respiratory exam: Present: normal lung sounds bilaterally Course Vital Signs 09/11/23 09/11/23 09/11/23 10:11 12:48 15:06 Temperature 97.9 F 98.4 F Pulse Rate 90 76 63 Respiratory 16 18 18 Rate Blood Pressure 150/100 135/90 135/93 O2 Sat by Pulse 98 98 97 Oximetry - Reevaluation(s) Reevaluation #1: 09/11/23 1410 Patient is given multiple doses of medications emergency room. After the Toradol he is finally feeling better. Patient is neurologically intact. His symptoms are consistent with occipital neuralgia which I did discuss with him. I discussed following up with neurologist for follow-up evaluation of possible trigger point injection. We discussed signs return to the emergency room with the patient as well. He understands [facility] treatment discharge plan. Medical Decision Making - Medical Decision Making Was pt. sent in by a medical professional or institution (, PA, [facility], urgent care, hospital, or group home...) When possible be specific @ -[No] Did you speak to anyone other than the patient for history (EMS, parent, family, police, friend...)? What history was obtained from this source @ -[No] Did you review nursing and triage notes (agree or disagree)? Why? @ -[I reviewed and agree with nursing and triage notes] Were old charts reviewed (outside hosp., previous admission, EMS record, old EKG, old radiological studies, urgent care reports/EKG's, group home records)? Report findings @ -Yes old charts were reviewed Differential Diagnosis (chest pain, altered mental status, abdominal pain women, abdominal pain men, vaginal bleeding, weakness, fever, dyspnea, syncope, headache, dizziness, GI bleed, back pain, seizure, CVA, palpatations, mental health, musculoskeletal)? @ -Migraine, cervical strain, muscle spasm, occipital neuralgia EKG interpreted by me (3pts min.). @ -[As above] X-rays interpreted by me (1pt min.). @ -[None done] CT interpreted by me (1pt min.). @ -CT is negative for any mass hemorrhage or other acute changes. No fracture seen at cervical spine. Radiology report is pending for confirmation of acute changes U/S interpreted by me (1pt. min.). @ -[None done] What testing was considered but not performed or refused? (CT, X-rays, U/S, labs)? Why? @ -[None] What meds were considered but not given or refused? Why? @ -[None] Did you discuss the management of the patient with other professionals (professionals i.e. , PA, [employer], lab, RT, psych nurse, social service manager, register of deeds, teacher, landcare officer, wrapper caser)? Give summary @ -I discussed patient's symptoms are And management with attending ED physician Dr. Tai today. Was smoking cessation discussed for >3mins.? @ -[No] Was critical care preformed (if so, how long)? @ -[No] Were there social determinants of health that impacted care today? How? (Homelessness, low income, unemployed, alcoholism, drug addiction, transportation, low edu. Level, literacy, decrease access to med. care, penitentiary, rehab)? @ -[No] Was there de-escalation of care discussed even if they declined (Discuss DNR or withdrawal of care, Hospice)? DNR status @ -[No] What co-morbidities impacted this encounter? (DM, HTN, Smoking, COPD, CAD, Cancer, CVA, ARF, Chemo, Hep., AIDS, mental health diagnosis, sleep apnea, morbid obesity)? @ -[None] Was patient admitted / discharged? Hospital course, mention meds given and route, prescriptions, significant lab abnormalities, going to OR and other pertinent info. @ the patient is well appearing in the ed. he was feeling better after medications emergency room. He is neurologically intact. His symptoms are consistent with occipital neuralgia. Discussed management and follow-up as an outpatient with neurologist. Discussed signs return to the emergency room. The patient understands and agrees to treatment discharged. Undiagnosed new problem with uncertain prognosis? @ -[No] Drug Therapy requiring intensive monitoring for toxicity (Heparin, Nitro, Insulin, Cardizem)? @ -[No] Were any procedures done? @ -[No] Diagnosis/symptom? @ -Occipital Neuralgia Acute, or Chronic, or Acute on Chronic? @ -[Acute ] Uncomplicated (without systemic symptoms) or Complicated (systemic symptoms)? @ -[Uncomplicated] Side effects of treatment? @ -[No] Exacerbation, Progression, or Severe Exacerbation? @ -[No] Poses a threat to life or bodily function? How? (Chest pain, [place], [place], pneumonia, PE, COPD, DKA, ARF, appy, cholecystitis, CVA, Diverticulitis, Homicidal, Suicidal, threat to staff... and all critical care pts) @ -[No] - Radiology Data Radiology results: report reviewed, image reviewed Disposition Clinical Impression: Occipital neuralgia, Strain of neck muscle Disposition: HOME SELF-CARE Condition: Good Instructions (If sedation given, give patient instructions): Cervical Strain (ED), Acute Headache (ED) Prescriptions: Butalb/APAP/Caff 50-325-40Mg [Fioricet 50-325-40] 1 tab PO Q6H PRN #12 tablet PRN Reason: Headache Gabapentin [Neurontin] 100 mg PO BID 7 Days #14 cap Is patient prescribed a controlled substance at d/c from ED?: No When asked, does pt state using other controlled substances?: Yes Referrals: [facility],Clinic [Primary Care Provider] - 1-2 days Reynaldo Snider MD [STAFF PHYSICIAN] - 1-2 days (FOLLOW UP WITH NEUROLOGIST INCOMING INSPECTOR TODAY ) Time of Disposition: 14:56
[2023-09-11] MEDS ORDERED: diphenhydrAMINE 50 MG/ML 1 ML VIAL IVP STA (12:26)
[2023-09-11] MEDS ORDERED: PROCHLORPERAZINE INJ 10 MG/2 ML VIAL IVP STA (12:26)
--- NOTE | 2023-09-11 12:33 | CT ---
EXAMINATION TYPE: CT brain marleny wo con DATE OF EXAM: 09/11/2023 COMPARISON: None HISTORY: 38-year-old male Neck and head pain. CT DLP: 1842.5 mGycm Automated exposure control for dose reduction was used. Technique: Examination of the head was done in axial plane without intravenous contrast. Coronal and sagittal reconstructions performed. CT of the cervical spine was obtained in axial plane without intravenous injection of contrast mater ial. Coronal and sagittal reformatted images were obtained from the axial views for evaluation of f ractures, spinal alignment and canal. FINDINGS: Head: There is no evidence of acute intracranial hemorrhage, acute ischemic changes, mass, mass-effect, or extra-axial fluid collection. There is no effacement of cerebral sulci or basal subarachnoid cister ns. There is no hydrocephalus. There is no midline shift. Méndez-white matter distinction is preserv ed. 1.8 cm mucosal retention cyst floor of the maxillary sinus. Leftward nasal septal deviation. Moderate mucosal thickening right ethmoid air cells Cervical spine: No craniocervical junction abnormalities, predental space widening, or prevertebral soft tissue swell ing. Mild spondylotic change particularly at C5-C6 where there may be a mild narrowing of the spinal canal . Assessment of the spinal canal from C6 and below is limited due to artifact from the patient's shou lders. No acute fracture of the cervical spine. Sagittal and coronal reformatted images confirm above findings. COMBINED IMPRESSION: 1. No acute intracranial abnormality seen. 2. No acute fracture or malalignment of the cervical spine.
[2023-09-11 12:50] VITALS: RESP 18
[2023-09-11] MEDS ORDERED: KETOROLAC 15 MG/ML 1 ML VIAL IVP STA (13:36)
[2023-09-11 15:12] VITALS: BP 135/93; PULSE 63; TEMP 98.4
== END 2023-09-11 15:09 | disposition home or self-care (01) ==
LOC: EC 10:06
DX: S16.1XXA Strain of muscle, fascia and tendon at neck level, initial encounter (principal); M54.81 Occipital neuralgia; M47.812 Spondylosis without myelopathy or radiculopathy, cervical region; K21.9 Gastro-esophageal reflux disease without esophagitis; I10 Essential (primary) hypertension; F17.200 Nicotine dependence, unspecified, uncomplicated; Z79.899 Other long term (current) drug therapy; Z88.5 Allergy status to narcotic agent; X58.XXXA Exposure to other specified factors, initial encounter
CPT/HCPCS: 72125; 70450; 99284; 96374; 96375 ×4; J1200; J0780; J1100; J3360; J1885

== ENCOUNTER → 2023-10-03 | Outpatient (CLI) | payer OTHER ==
--- NOTE | 2023-10-03 11:43 | MR ---
EXAMINATION TYPE: MR shoulder RT wo con DATE OF EXAM: 10/03/2023 COMPARISON: None HISTORY: Rt shoulder pain TECHNIQUE: Multiplanar, multisequence imaging of the right shoulder is performed without contrast. FINDINGS: Rotator Cuff: There is intrasubstance signal seen involving the insertion of the infraspinatus tendon compatible with tendinosis. No through thickness tear or retraction. Subscapularis tendon is intact. Supraspinatus tendon demonstrates mild increased signal along the pos terior fibers compatible with mild tendinosis. No through thickness tear or retraction. Acromioclavicular Joint: There is moderate hypertrophic arthropathy of the AC joint with the marrow s ignal alteration likely representing reactive edema. There is a spur extending off the acromion resul ting in impingement of the supraspinatus tendon and muscle. Glenohumeral Joint: The joint space is preserved with no sizable joint effusion. The glenohumeral lig aments are intact. Labrum: The labrum appears grossly intact given limitation of non-arthrogram study. Biceps Tendon: The long head of biceps is in normal location within bicipital groove. Small amount of fluid surrounding the biceps tendon suggestive of mild bicipital tendinosis. Bone marrow signal: No focal abnormal marrow signal is appreciated. Other: No additional significant abnormality is appreciated. IMPRESSION: 1. Impingement secondary to AC joint arthropathy and spurring of the acromion. There is tendinosis of the infraspinatus and posterior fibers of the supraspinatus tendon with no evidence of through thick ness tear or retraction. 2. Mild bicipital tendinosis.
== END | disposition home or self-care (01) ==
LOC: RADMRIMAIN 09:31
DX: M19.011 Primary osteoarthritis, right shoulder (principal); M25.811 Other specified joint disorders, right shoulder; M67.813 Other specified disorders of tendon, right shoulder

== ENCOUNTER 2023-12-05 10:00 | Emergency (ER) | payer OTHER ==
--- NOTE | 2023-12-05 10:44 | ED ---
General Adult HPI - General Stated complaint: fever body aches migraine Time Seen by Provider: 12/05/23 10:43 Source: patient, RN notes reviewed Mode of arrival: ambulatory Limitations: no limitations - History of Present Illness Initial comments: 38-year-old male presents emergency Department with chief complaint of fever or chills body aches and headache. Patient states symptoms started last 24 hours. Has not taken anything [id number] for his symptoms. Patient denies any significant past medical history other than mild hypothyroidism. - Related Data Home Medications Medication Instructions Recorded Confirmed Cyclobenzaprine [Flexeril] 10 mg PO TID PRN 01/16/19 09/06/22 Propranolol HCl [Inderal Xl] 120 mg PO DAILY 01/16/19 09/06/22 ZOLMitriptan [Zomig ZMT] 2.5 mg PO DAILY PRN MDD 10MG 01/16/19 09/06/22 gemfibroziL [Lopid] 600 mg PO AC-BID 01/16/19 09/06/22 Rosuvastatin [Crestor] 10 mg PO HS 06/03/19 09/06/22 HYDROcodone/APAP 10-325MG [[place] 1 tab PO Q6HR PRN 09/04/22 09/06/22 10-325] Omeprazole [PriLOSEC] 20 mg PO AC-BRKFST PRN MDD 1 09/06/22 09/06/22 Previous Rx's Medication Instructions Recorded Acetaminophen Tab [Tylenol Tab] 1,000 mg PO Q6HR PRN #30 tablet 09/06/22 Ibuprofen [Motrin] 600 mg PO Q8HR PRN #30 tab 09/06/22 Amoxic-Pot Clav 875-125Mg 1 tab PO Q12HR 7 Days #14 tab 04/05/23 [Augmentin 875-125] Ibuprofen [Motrin] 800 mg PO Q8H PRN #20 tab 04/05/23 Amoxic-Pot Clav 875-125Mg 1 tab PO Q12HR #20 tab 08/14/23 [Augmentin 875-125] Butalb/APAP/Caff 50-325-40Mg 1 tab PO Q6H PRN #12 tablet 09/11/23 [Fioricet 50-325-40] Gabapentin [Neurontin] 100 mg PO BID 7 Days #14 cap 09/11/23 Allergies Allergy/AdvReac Type Severity Reaction Status Date / Time morphine Allergy Rash/Hives Verified 12/05/23 10:51 Review of Systems ROS Statement: Those systems with pertinent positive or pertinent negative responses have been documented in the HPI. ROS Other: All systems not noted in ROS Statement are negative. Past Medical History Past Medical History: GERD/Reflux, Hyperlipidemia Additional Past Medical History / Comment(s): Back pain, nerve pain, Migraines History of Any Multi-Drug Resistant Organisms: None Reported Past Surgical History: Back Surgery Additional Past Surgical History / Comment(s): spine fusion, lipoma removal x 2 Past Anesthesia/Blood Transfusion Reactions: No Reported Reaction Past Psychological History: No Psychological Hx Reported Smoking Status: Current every day smoker Past Alcohol Use History: Rare Past Drug Use History: None Reported - Past Family History Mother Family Medical History: No Reported History General Exam - General Exam Comments Initial Comments: Visual Physical Exam Vital signs reviewed General: Well-appearing, nontoxic, no acute distress. Head: Normocephalic, atraumatic Eyes: PERRLA, EOMI ENT: Airway patent Chest: Nonlabored breathing Skin: No visual rash, normal skin tone Neuro: Alert and oriented 3 Musculoskeletal: No gross abnormalities General appearance: alert, in no apparent distress Head exam: Present: atraumatic, normocephalic, normal inspection Eye exam: Present: normal appearance, PERRL, EOMI. Absent: scleral icterus, conjunctival injection, periorbital swelling ENT exam: Present: normal exam, normal oropharynx, mucous membranes moist Neck exam: Present: normal inspection, full ROM. Absent: tenderness, meningismus, lymphadenopathy Respiratory exam: Present: normal lung sounds bilaterally. Absent: respiratory distress, wheezes, rales, rhonchi, stridor Cardiovascular Exam: Present: regular rate, normal rhythm, normal heart sounds. Absent: systolic murmur, diastolic murmur, rubs, gallop, clicks GI/Abdominal exam: Present: soft, normal bowel sounds. Absent: distended, tenderness, guarding, rebound, rigid Course Vital Signs 12/05/23 10:49 Temperature 99.8 F H Pulse Rate 85 Respiratory 18 Rate Blood Pressure 124/88 O2 Sat by Pulse 98 Oximetry Medical Decision Making - Medical Decision Making I completed the quick note portion of this chart signed Alex Aparicio PA-C Was pt. sent in by a medical professional or institution ([facility], [employer], urgent care, hospital, or correction...) When possible be specific @ -No Did you speak to anyone other than the patient for history (EMS, parent, family, police, friend...)? What history was obtained from this source @ -No Did you review nursing and triage notes (agree or disagree)? Why? @ -I reviewed and agree with nursing and triage notes Were old charts reviewed (outside hosp., previous admission, EMS record, old EKG, old radiological studies, urgent care reports/EKG's, correction records)? Report findings @ -No old charts were reviewed Differential Diagnosis (chest pain, altered mental status, abdominal pain women, abdominal pain men, vaginal bleeding, weakness, fever, dyspnea, syncope, headache, dizziness, GI bleed, back pain, seizure, CVA, palpatations, mental health, musculoskeletal)? @ -COVID 19, RSV, influenza, pneumonia, acute bronchitis, URI, this list is not all inclusive] EKG interpreted by me (3pts min.). @ -[None X-rays interpreted by me (1pt min.). @ -None done CT interpreted by me (1pt min.). @ -None done U/S interpreted by me (1pt. min.). @ -None done What testing was considered but not performed or refused? (CT, X-rays, U/S, labs)? Why? @ -None What meds were considered but not given or refused? Why? @ -None Did you discuss the management of the patient with other professionals (p jozef i.e. [facility], [employer], lab, RT, psych nurse, rn social work, decorating machine tender, teacher, civil preparedness officer, sample case porter)? Give summary @ -No Was smoking cessation discussed for >3mins.? @ -No Was critical care preformed (if so, how long)? @ -No Were there social determinants of health that impacted care today? How? (Homelessness, low income, unemployed, alcoholism, drug addiction, transportation, low edu. Level, literacy, decrease access to med. care, fpc, rehab)? @ -No Was there de-escalation of care discussed even if they declined (Discuss DNR or withdrawal of care, Hospice)? DNR status @ -No What co-morbidities impacted this encounter? (DM, HTN, Smoking, COPD, CAD, Cancer, CVA, ARF, Chemo, Hep., AIDS, mental health diagnosis, sleep apnea, morbid obesity)? @ -None Was patient admitted / discharged? Hospital course, mention meds given and route, prescriptions, significant lab abnormalities, going to OR and other pertinent info. @ -Discharge patient is positive for COVID-19. Patient will be discharged in stable condition with supportive treatment return parameters were discussed. Undiagnosed new problem with uncertain prognosis? @ -No Drug Therapy requiring intensive monitoring for toxicity (Heparin, Nitro, Insulin, Cardizem)? @ -No Were any procedures done? @ -No Diagnosis/symptom? @ -COVID-19 Acute, or Chronic, or Acute on Chronic? @ -Acute Uncomplicated (without systemic symptoms) or Complicated (systemic symptoms)? @ -[Unconplicated Side effects of treatment? @ -No Exacerbation, Progression, or Severe Exacerbation? @ -No Poses a threat to life or bodily function? How? (Chest pain, [place], [place], pneumonia, PE, COPD, DKA, ARF, appy, cholecystitis, CVA, Diverticulitis, Homicidal, Suicidal, threat to staff... and all critical care pts) @ -No - Lab Data Lab Results 12/05/23 Range/Units 10:53 Influenza Type A (PCR) Not Detected (Not Detectd) Influenza Type B (PCR) Not Detected (Not Detectd) RSV (PCR) Not Detected (Not Detectd) SARS-CoV-2 (PCR) Detected A (Not Detectd) Disposition Clinical Impression: COVID-19 Disposition: HOME SELF-CARE Condition: Stable Instructions (If sedation given, give patient instructions): COVID-19 (Coronavirus Disease 2019) (ED) Additional Instructions: Please return to the Emergency Department if symptoms worsen or any other concerns. Is patient prescribed a controlled substance at d/c from ED?: No Referrals: [facility],Clinic [Primary Care Provider] - 1-2 days Time of Disposition: 12:08
[2023-12-05] MEDS ORDERED: ACETAMINOPHEN TAB 500 MG TAB PO STA (10:57)
[2023-12-05 11:03] VITALS: RESP 18
[2023-12-05 12:38] VITALS: BP 129/78; PULSE 87; TEMP 99.5
== END 2023-12-05 12:30 | disposition home or self-care (01) ==
LOC: EC 10:00
DX: U07.1 COVID-19 (principal); K21.9 Gastro-esophageal reflux disease without esophagitis; E78.5 Hyperlipidemia, unspecified; F17.200 Nicotine dependence, unspecified, uncomplicated; Z88.5 Allergy status to narcotic agent; Z79.899 Other long term (current) drug therapy
CPT/HCPCS: 87636; 99283

== ENCOUNTER → 2024-01-09 | Outpatient (CLI) | payer OTHER ==
--- NOTE | 2024-01-09 10:15 | MR ---
EXAMINATION TYPE: MR lumbar spine wo con DATE OF EXAM: 01/09/2024 COMPARISON: NONE HISTORY: Chronic mid and lower back pain, RLE radiculopathy. Hx surgery 2015. TECHNIQUE: T1 and T2 axial and sagittal images of the lumbar spine are submitted. FINDINGS: There is limited assessment of the visualized portions of bowel cord due to artifact.. At L1-2 there is no disc herniation, canal stenosis, or foraminal. No degenerative disc disease. At L2-3 there is no disc herniation, canal stenosis, or foraminal. No degenerative disc disease. At L3-4 there is a mild broad-based central disc bulging with hypertrophy of the facets and ligamentu m flavum. No canal stenosis. Diminutive spinal canal. At L4-5 there is there is broad-based disc bulging with protrusion. The facets and ligamentum flavum and moderate canal stenosis with bilateral foraminal approach. At L5-S1 there is postsurgical change artifact which limits assessment of this level. No obvious recu rrent disc herniation or canal stenosis. Grade 1 anterolisthesis. Discogenic marrow changes with mild bilateral foraminal encroachment. There is asymmetric prominence of the left nerve root increased vasquez rrounding signal. IMPRESSION: 1. Postsurgical changes L5-S1 with grade 1 anterolisthesis. There is prominence of the left exiting n erve root. Recommend contrast lumbar spine study for further evaluation. 2. There is a broad-based central disc bulging L4-L5 with diminutive canal and hypertrophic change fa cets resulting in moderate canal stenosis and bilateral foraminal encroachment. 3. Mild central disc bulging L3-L4 with no canal stenosis. EXAMINATION TYPE: MR thoracic spine wo con DATE OF EXAM: 01/09/2024 COMPARISON: None HISTORY: Chronic mid and lower back pain, RLE radiculopathy. Hx surgery 2015. Standard multiplanar, multisequence MRI departmental protocol Multiplanar, multisequence images of the thoracic spine were acquired without contrast. FINDINGS: Exam limited by motion artifact. Grossly thoracic spine is in anatomic alignment. Vertebral body height and disc signal maintained. There is no evidence of significant degenerative disc diseas e. The visualized thoracic spinal cord demonstrates no definite abnormal signal given the limitations of the exam. There is a question of abnormal signal within the cervical spinal cord. Syrinx would be in the differential diagnosis and a dedicated cervical spine MRI recommended. Within the thoracic spine there is no evidence of canal stenosis, foraminal encroachment or discrete disc herniation. IMPRESSION: 1. Exam limited due to motion artifact demonstrates no definite disc herniation or canal stenosis. 2. On the wire weaver helper image there is partial inclusion of the cervical spine with a segmental area of abnor mal signal suspected within the cervical spinal cord. Recommend dedicated cervical spinel MRI. On rev iew of prior CT scan there does appear to be low-lying cerebellar tonsils\ possible Chiari malformati on.
== END | disposition home or self-care (01) ==
LOC: RADMRIMAIN 08:04
PROVIDERS: ATTEND Family Medicine
DX: M43.17 Spondylolisthesis, lumbosacral region (principal); M51.16 Intervertebral disc disorders with radiculopathy, lumbar region; M47.26 Other spondylosis with radiculopathy, lumbar region; M48.061 Spinal stenosis, lumbar region without neurogenic claudication; Z98.890 Other specified postprocedural states
CPT/HCPCS: 72146; 72148

== ENCOUNTER → 2024-01-09 | Outpatient (CLI) | payer OTHER ==
--- NOTE | 2024-01-09 10:01 | CT ---
EXAMINATION TYPE: CT lumbar spine wo con CT DLP: 998 mGycm, Automated exposure control for dose reduction was used. DATE OF EXAM: 01/09/2024 9:40 AM COMPARISON: 01/09/2024 MRI., 12/27/2023. CLINICAL INDICATION:Male, 38 years old with history of M47.27 SPONDYLOSIS RADICULOPATHY; PHH, spondyl osis radiculopathy TECHNIQUE: Multiple axial images were obtained from the midportion of T11 through the sacroiliac viraj nts. Soft tissue and bone windows in coronal and sagittal planes were obtained and reviewed. Contrast used: mL of , (None, if empty). Oral contrast used: (None, if empty). FINDINGS: Alignment: There are 5 lumbar type vertebral bodies within normal alignment. Bone: Fixation changes at L5-S1 appear intact. Discectomy at L4-L5 is also present. Streak artifact a t these levels. No evidence of fracture. Scattered osteophyte formation and facet joint arthropathy. Discs: T12-L1: No spinal canal or neural foraminal stenosis is identified. L1-L2: No spinal canal or neural foraminal stenosis is identified. L2-L3: Facet joint arthropathy and disc bulging result without significant spinal canal stenosis or n eural foraminal stenosis. L3-L4: Facet joint arthropathy and disc bulging result with mild spinal canal stenosis and mild bilat eral neural foraminal stenosis. L4-L5: Facet joint arthropathy and disc bulging result with moderate to severe series 3 image 55 Spin al canal stenosis and at least moderate bilateral neural foraminal stenosis. L5-S1: Facet joint arthropathy and disc bulging result with mild spinal canal stenosis and moderate b ilateral neural foraminal stenosis. Other: None IMPRESSION: 1. Postsurgical changes at L5-S1 with fixation hardware and discectomy which appear intact. 2. Moderate to severe spinal canal stenosis at L4-L5 secondary disc bulge. Also at least moderate ne ural foraminal stenosis at this level. 3. No evidence of fracture
== END | disposition home or self-care (01) ==
LOC: RADCTMAIN 08:01
PROVIDERS: ATTEND Orthopaedic Surgery
DX: M47.27 Other spondylosis with radiculopathy, lumbosacral region (principal); M48.07 Spinal stenosis, lumbosacral region; M99.73 Connective tissue and disc stenosis of intervertebral foramina of lumbar region; Z98.890 Other specified postprocedural states
CPT/HCPCS: 72131

== ENCOUNTER → 2024-04-01 | Outpatient (CLI) | payer OTHER ==
[2024-04-01 12:30] VITALS: BP 137/91; PULSE 76; RESP 16; TEMP 97.1
--- NOTE | 2024-04-01 13:36 | P.PAINPG ---
PQRS Measure Charge Sheet Comment: HISTORY OF PRESENT ILLNESS: A 38 yr old male as a referral from Dr Somers presents today w severe and chronic DUNHAM and neck pain > 6 mo secondary to occipital neuralgia and cervicogenic DUNHAM for evaluation. Pt states pain level is provoked at 8 /10 in intensity, constant, localized in the upper cervical spine, predominantly axial, sharp, stabbing in character w occasional shooting pain towards the top of the head. Pain is provoked by hyperextension. Pain is alleviated by PT x 6 wks which ended in Oct 2023 (Cervical), physician guided home exercises/ stretches 5 times weekly since Oct 2023. heat, ice, medications ([place], Flexeril), repositioning and rest . Cervical disability score at 17. PMH: OA, GERD, Hyperlipidemia PSH: Lumbar Fusion, Lipoma Removal x2, R shoulder intra articular injection (2023) SH: Daily tobacco use, Rare ETOH use, No illicit drug use FH: Noncontributory All: See list Meds: See list REVIEW OF ORGAN SYSTEMS: CONSTITUTIONAL: No fevers or chills. No recent weight loss. NEUROLOGICAL: + numbness and tingling along the distal extremities. No seizure disorders or headaches. MUSCULOSKELETAL: + pain PSYCHIATRIC: Denies current depression or suicidal thoughts. Physical Examinations : Constitutional : Cooperative , not in acute distress . Neurologic : Cranial nerve II to XII intact. No focal neurological deficits. Psychiatric : alert & oriented x 3. Matching mood & appropriate affect. Judgment & insight intact. Musculoskeletal : Cervical Spine +BL ARVIND TTP Motor strength in the deltoid and biceps: Normal right side. Normal Left side Motor strength biceps and the wrist extensors: Normal right side . Normal left side Motor strength in the triceps muscle: Normal right side. Normal left side Deep tendon reflexes: Normal at the biceps. Normal at Brachioradialis. Normal at triceps Vertebral body tenderness to deep palpation over Cervical facet loading test: positive bilaterally Spurling test: positive bilaterally Neck distraction test: positive bilaterally Yudith sign: positive bilaterally Lumbar spine Motor strength lower extremities ,thigh and legs 5/5 Right side , 5/5 Left side Deep tendon reflexes : Normal Knee Jerk. Normal Ankle Jerk Vertebral body tenderness over Zayas Test positive Lumbar facet Loading Test: positive Right / positive Left Range of motion of the lumbar spine Flexion 30 degrees, extension 10 degrees Straight Leg Raise test: Left/ Right positive at degrees Truman test: positive right / positive left. Severe tenderness over the Sacroiliac joint on the Right / Left sides Gaenslen test: positive bilaterally Seated flexion test: positive bilaterally. Sacral spine : Severe tenderness over the Sacroiliac joint: right side / left side Range of motion: Flexion of the lumbar spine <60 degrees Range of motion: Extension of the lumbar spine <20 degrees Gaenslen's Test positive Truman test: positive right side / left side Thigh Thrust Test Sacral Thrust Test Imaging: MRI brain from reviewed Assessment/ Plan : Occipital Neuralgia, Cervicogenic DUNHAM Recommendation of BL ARVIND injection #1. May need a series of injections for optimal pain relief. Risks, benefits of procedure discussed and patient verbalized understanding. Admits to anti- coagulant use or medical history of diabetes. Protocol for discontinuation/ continuation of medications shelley proce dure discussed. All questions answered. I have spent greater than 30 minutes on patient care today. Dr Carrington was available by phone for the evaluation of this patient. The time was used to review the medical records including relevant urine studies and Prescription history (MAPs), review of the available imaging, evaluation and examination of the patient, coordination of care with the medical staff and if applicable referring physicians, as well as creation of the medical record PQRS Narrative: Smoking Status Current every day smoker Home Medications: Ambulatory Orders Cyclobenzaprine [Flexeril] 10 mg PO TID PRN 01/16/19 Propranolol HCl [Inderal Xl] 120 mg PO DAILY 01/16/19 ZOLMitriptan [Zomig ZMT] 2.5 mg PO DAILY PRN MDD 10MG 01/16/19 gemfibroziL [Lopid] 600 mg PO AC-BID 01/16/19 Rosuvastatin [Crestor] 10 mg PO HS 06/03/19 HYDROcodone/APAP 10-325MG [[place] 10-325] 1 tab PO Q6HR PRN 09/04/22 Acetaminophen Tab [Tylenol Tab] 1,000 mg PO Q6HR PRN #30 tablet 09/06/22 Ibuprofen [Motrin] 600 mg PO Q8HR PRN #30 tab 09/06/22 Omeprazole [PriLOSEC] 20 mg PO AC-BRKFST PRN MDD 1 09/06/22 Amoxic-Pot Clav 875-125Mg [Augmentin 875-125] 1 tab PO Q12HR 7 Days #14 tab 04/05/23 Ibuprofen [Motrin] 800 mg PO Q8H PRN #20 tab 04/05/23 Amoxic-Pot Clav 875-125Mg [Augmentin 875-125] 1 tab PO Q12HR #20 tab 08/14/23 Butalb/APAP/Caff 50-325-40Mg [Fioricet 50-325-40] 1 tab PO Q6H PRN #12 tablet 09/11/23 Gabapentin [Neurontin] 100 mg PO BID 7 Days #14 cap 09/11/23 Controlled Substance Measures - Controlled Substance Measures Is patient prescribed a controlled substance at discharge?: No
== END ==
LOC: PNWHC3 08:43
PROVIDERS: ATTEND Specialist
DX: M54.81 Occipital neuralgia (principal); G44.86 Cervicogenic headache; F17.200 Nicotine dependence, unspecified, uncomplicated; G89.29 Other chronic pain; Z88.5 Allergy status to narcotic agent
CPT/HCPCS: 99211

== ENCOUNTER 2024-04-21 09:47 | Day surgery (SDC) | payer OTHER ==
[~2024-04-21 09:47] MED LIST changes: -DEXAMETHASONE SOD PHOSPHATE 4 MG/ML 1 ML VIAL IV ONE; +LACTATED RINGERS 1,000 ML IV SCH; -ONDANSETRON 4 MG/2 ML VIAL IVP ONE; -Pre Op ABX Message 1 EACH MISC MISCELLANE ONE; -fentaNYL (PF) 50 MCG/ML 2 ML AMP IV PRN
[2024-04-21 10:38] VITALS: TEMP 97.6
[2024-04-21] MEDS ORDERED: methylPREDNISolone ACETATE 40 MG/ML 1 ML VIAL ONE (11:04)
[2024-04-21] MEDS ORDERED: ROPIVACAINE 5MG/ML 20ML VIAL ONE (11:04)
--- NOTE | 2024-04-21 11:08 | P.PCN ---
Date of Procedure: 04/21/24 Procedure(s) Performed: Preoperative diagnoses= 1- Greater occipital neuralgia. 2-cervicogenic headache Postoperative diagnoses= 1-greater occipital neuralgia. 2-cervicogenic headache Procedure= Bilateral Greater occipital nerve block. Anesthesia= none. Estimated blood loss=minimal. Procedure indication= the patient had a history of severe chronic neck pain ,and headache, diagnosed with occipital neuralgia exam was positive for severe tenderness over the occipital nerve bilaterally, she will be a good candidate occipital nerve block, patient failed conservative management Procedure description= the patient was seen and identified in the preoperative holding area, risks and benefits and alternative of the procedure and possible complications discussed with the patient, and he agreed with the preceding, patient signed the consent, an IV was started, and vital signs were monitored and were stable throughout the procedure, patient was placed in the sitting position or table and the neck area was prepped and draped with a sterile fashion, vital signs were closely monitored during the procedure, 25-gauge needle advanced 1 inch lateral to the occipital protuberance on the right side, at the location of the right occipital nerve , then after negative aspiration for heme and CSF and there was no paresthesia during the injection, 6 ml of Robivacaine 0.5% and 20 mg of Depo-Medrol injected after negative aspiration, the needle removed, and the entire same procedure was repeated for the left Greater occipital nerve. Patient tolerated the procedure well without any complication, The patient returned to supine position after the back was cleaned and a Band- Aid applied, the patient transported to recovery room in stable condition and he was monitored for 30 minutes before he was discharged home and then patient was reexamined before going home and patient was discharged in stable condition and patient will follow up with the pain clinic in a few weeks.
[2024-04-21 12:31] VITALS: BP 118/74; PULSE 74; RESP 16
== END 2024-04-21 11:34 | disposition home or self-care (01) ==
LOC: ORPAIN 09:47
PROVIDERS: ATTEND Specialist
DX: M54.81 Occipital neuralgia (principal); G44.86 Cervicogenic headache; Z88.5 Allergy status to narcotic agent; Z88.6 Allergy status to analgesic agent
CPT/HCPCS: 64405; J2795; J1010

== ENCOUNTER → 2024-05-14 | Outpatient (CLI) | payer OTHER ==
[2024-05-14 08:57] VITALS: BP 128/80; PULSE 58; RESP 16; TEMP 97.3
--- NOTE | 2024-05-14 13:27 | P.PAINPG ---
PQRS Measure Charge Sheet Comment: HISTORY OF PRESENT ILLNESS: A 38 yr old male presents today w severe and chronic DUNHAM and neck pain > 6 mo secondary to occipital neuralgia and cervicogenic DUNHAM for evaluation s/p BL ARVIND #1. Pt states he experienced 0 % pain relief x 3 wks s/p procedure. Pt states pain level is provoked at 8 /10 in intensity, constant, localized in the upper cervical spine, predominantly axial, sharp, stabbing in character w occasional shooting pain towards the top of the head. Pain is provoked by hyperextension, lights and excess sounds. Pain is alleviated by PT x 6 wks which ended in Oct 2023 (Cervical), physician guided home exercises/ stretches 5 times weekly since Oct 2023. heat, ice, medications, repositioning and rest . Cervical disability score at 17. Interventional procedures include BL ARVIND injection x1 Medications include [place], Flexeril REVIEW OF ORGAN SYSTEMS: CONSTITUTIONAL: No fevers or chills. No recent weight loss. NEUROLOGICAL: + numbness and tingling along the distal extremities. No seizure disorders or headaches. MUSCULOSKELETAL: + pain PSYCHIATRIC: Denies current depression or suicidal thoughts. Physical Examinations : Constitutional : Cooperative , not in acute distress . Neurologic : Cranial nerve II to XII intact. No focal neurological deficits. Psychiatric : alert & oriented x 3. Matching mood & appropriate affect. Judgment & insight intact. Musculoskeletal : Cervical Spine Motor strength in the deltoid and biceps: Normal right side. Normal Left side Motor strength biceps and the wrist extensors: Normal right side . Normal left side Motor strength in the triceps muscle: Normal right side. Normal left side Deep tendon reflexes: Normal at the biceps. Normal at Brachioradialis. Normal at triceps Vertebral body tenderness to deep palpation over Cervical facet loading test: positive bilaterally C2-C3, C3-C4 Spurling test: positive bilaterally Neck distraction test: positive bilaterally Yudith sign: positive bilaterally Lumbar spine Motor strength lower extremities ,thigh and legs 5/5 Right side , 5/5 Left side Deep tendon reflexes : Normal Knee Jerk. Normal Ankle Jerk Vertebral body tenderness over Zayas Test positive Lumbar facet Loading Test: positive Right / positive Left Range of motion of the lumbar spine Flexion 30 degrees, extension 10 degrees Straight Leg Raise test: Left/ Right positive at degrees Truman test: positive right / positive left. Severe tenderness over the Sacroiliac joint on the Right / Left sides Gaenslen test: positive bilaterally Seated flexion test: positive bilaterally. Sacral spine : Severe tenderness over the Sacroiliac joint: right side / left side Range of motion: Flexion of the lumbar spine <60 degrees Range of motion: Extension of the lumbar spine <20 degrees Gaenslen's Test positive Truman test: positive right side / left side Thigh Thrust Test Sacral Thrust Test Imaging: MRI brain from reviewed Assessment/ Plan : Occipital Neuralgia, Cervicogenic DUNHAM Recommendation of BL MBB C2-C4 #1. May need a series of injections, up until RFA, for optimal pain relief. Risks, benefits of procedure discussed and patient verbalized understanding. Admits to anti- coagulant use or medical history of diabetes. Protocol for discontinuation/ continuation of medications shelley procedure discussed. Minimal anesthesia including Fentanyl and Versed if clinically indicated. All questions answered. I have spent greater than 30 minutes on patient care today. Dr Carrington was available by phone for the evaluation of this patient. The time was used to review the medical records including relevant urine studies and Prescription history (MAPs), review of the available imaging, evaluation and examination of the patient, coordination of care with the medical staff and if applicable referring physicians, as well as creation of the medical record PQRS Narrative: Smoking Status Current every day smoker Hx Alcohol Use (MH) No Home Medications: Ambulatory Orders Cyclobenzaprine [Flexeril] 10 mg PO TID PRN 01/16/19 Propranolol HCl [Inderal Xl] 120 mg PO DAILY 01/16/19 ZOLMitriptan [Zomig ZMT] 2.5 mg PO DAILY PRN MDD 10MG 01/16/19 gemfibroziL [Lopid] 600 mg PO AC-BID 01/16/19 Rosuvastatin [Crestor] 10 mg PO HS 06/03/19 HYDROcodone/APAP 10-325MG [[place] 10-325] 1 tab PO Q6HR PRN 09/04/22 Butalb/APAP/Caff 50-325-40Mg [Fioricet 50-325-40] 1 tab PO Q6H PRN #12 tablet 09/11/23 Levothyroxine Sodium [Synthroid] 50 mcg PO DAILY 04/17/24 Loratadine [Claritin] 10 mg PO DAILY 04/17/24 Rimegepant Sulfate [Nurtec Odt] 75 mg PO DIRECTED PRN 04/17/24 Unk Vitamin D 1 tab PO DAILY 04/17/24 Verapamil HCl [Verapamil Sr] 120 mg PO DAILY 04/17/24 Controlled Substance Measures - Controlled Substance Measures Is patient prescribed a controlled substance at discharge?: No
== END ==
LOC: PNWHC3 08:41
PROVIDERS: ATTEND Specialist
DX: M54.81 Occipital neuralgia (principal); G44.86 Cervicogenic headache; F17.200 Nicotine dependence, unspecified, uncomplicated; Z88.5 Allergy status to narcotic agent; Z88.6 Allergy status to analgesic agent
CPT/HCPCS: 99211

== ENCOUNTER → 2024-06-01 | Outpatient (CLI) | payer OTHER ==
[2024-06-01 15:06] LABS: HCT 42.8 % (39.6-50.0); HGB 14.8 g/dL (13.0-17.0); MCH 29.3 pg (27.0-32.0); MCHC 34.6 g/dL (32.0-37.0); MCV 84.8 FL (80.0-97.0); NRBC Per 100 WBC 0 X 10*3/uL (0.00-0.01); Platelet Count 298 X 10*3/uL (140-440); RBC 5.05 X 10*6/uL (4.40-5.60); RDW 12.3 % (11.5-14.5); WBC 10.13 X 10*3/uL (4.50-10.00)
[2024-06-01 15:46] LABS: ALT 28 U/L (10-49); AST 21 U/L (14-35); Albumin 4.5 g/dL (3.8-4.9); Albumin/Globulin Ratio 1.73 Ratio (1.60-3.17); Alkaline Phosphatase 46 U/L (41-126); Blood Urea Nitrogen 12.6 mg/dL (9.0-27.0); Calcium 9.8 mg/dL (8.7-10.3); Carbon Dioxide 25.6 mmol/L (21.6-31.8); Chloride 102 mmol/L (96-109); Globulin 2.6 g/dL (1.6-3.3); Glucose 154 mg/dL (70-110); Potassium 4.4 mmol/L (3.5-5.5); Sodium 140 mmol/L (135-145); Total Bilirubin 0.4 mg/dL (0.3-1.2); Total Protein 7.1 g/dL (6.2-8.2)
[2024-06-01 16:02] LABS: INR 0.99 sec (0.93-1.11); Prothrombin Time 10.7 sec (9.9-11.9)
== END | disposition home or self-care (01) ==
LOC: LABWHC1 11:07
PROVIDERS: ATTEND Orthopaedic Surgery
DX: M43.16 Spondylolisthesis, lumbar region (principal); M54.16 Radiculopathy, lumbar region
CPT/HCPCS: 36415; 80053; 82306; 85027; 85610

== ENCOUNTER 2024-06-05 23:25 | Emergency (ER) | payer OTHER ==
[2024-06-06] MEDS: SODIUM CHLORIDE 0.9% 1,000 ML IV ONE
[2024-06-06] MEDS: ONDANSETRON 4 MG/2 ML VIAL IVP STA (00:01)
[2024-06-06] MEDS: HYDROmorphone 0.5 MG/0.5 ML SYRINGE IVP STA (00:02)
[2024-06-06 00:13] LABS: Basophils # (A) 0.1 k/uL (0-0.2); Basophils % (A) 1 %; Eosinophils # (A) 0.5 k/uL (0-0.7); Eosinophils % (A) 5 %; HCT 44.7 % (39.0-53.0); HGB 15.2 gm/dL (13.0-17.5); Lymphocytes # (A) 3.4 k/uL (1.0-4.8); Lymphocytes % (A) 37 %; MCH 29.1 pg (25.0-35.0); MCHC 34.1 g/dL (31.0-37.0); MCV 85.2 fL (80.0-100.0); Mean Platelet Volume 7.7; Monocytes # (A) 0.7 k/uL (0-1.0); Monocytes % (A) 8 %; Neutrophils # (A) 4.2 k/uL (1.3-7.7); Neutrophils % (A) 46 %; Platelet Count 295 k/uL (150-450); RBC 5.25 m/uL (4.30-5.90); WBC 9.2 k/uL (3.8-10.6)
[2024-06-06 00:17] LABS: Appearance,Urine Clear (Clear); Bilirubin,Urine Negative (Negative); Blood,Urine Negative (Negative); Color,Urine Light Yellow; Glucose,Urine (UA) Negative (Negative); Ketones,Urine Negative (Negative); Leukocyte Esterase,Urine Negative (Negative); Nitrite,Urine Negative (Negative); Protein,Urine Negative (Negative); Specific Gravity,Urine 1.021 (1.001-1.035); Urobilinogen,Urine <2.0 mg/dL (<2.0)
[2024-06-06 00:37] LABS: ALT 30 U/L (4-49); AST 27 U/L (17-59); African American GFR (CKD) >90 (>60 ml/min/1.73 sqM); Albumin 4.7 g/dL (3.5-5.0); Alkaline Phosphatase 44 U/L (38-126); Amylase 43 U/L (30-110); Anion Gap 8 mmol/L; Blood Urea Nitrogen 15 mg/dL (9-20); Calcium 9.5 mg/dL (8.4-10.2); Carbon Dioxide 21 mmol/L (22-30); Chloride 108 mmol/L (98-107); Glucose 106 mg/dL (74-99); Lipase 68 U/L (23-300); Non-African American GFR(CKD) >90 (>60 ml/min/1.73 sqM); Potassium 4.3 mmol/L (3.5-5.1); Sodium 137 mmol/L (137-145); Total Bilirubin 0.5 mg/dL (0.2-1.3); Total Protein 7.6 g/dL (6.3-8.2)
--- NOTE | 2024-06-06 01:17 | ED ---
Abdominal Pain HPI - General Chief Complaint: Abdominal Pain Stated Complaint: Right Side Abdominal Pain Time Seen by Provider: 06/05/24 23:34 Source: patient Mode of arrival: ambulatory Limitations: no limitations - History of Present Illness Initial Comments: 38-year-old male presenting with chief complaint of abdominal pain. Pain started abruptly this evening. It is located on the right side. He admits to nausea with no vomiting. No dysuria or hematuria. Has history of kidney stones, states that this does not feel similar. No history of abdominal surgeries. No fevers or chills. - Related Data Home Medications Medication Instructions Recorded Confirmed Cyclobenzaprine [Flexeril] 10 mg PO TID PRN 01/16/19 05/14/24 Propranolol HCl [Inderal Xl] 120 mg PO DAILY 01/16/19 05/14/24 ZOLMitriptan [Zomig ZMT] 2.5 mg PO DAILY PRN MDD 10MG 01/16/19 05/14/24 gemfibroziL [Lopid] 600 mg PO AC-BID 01/16/19 05/14/24 Rosuvastatin [Crestor] 10 mg PO HS 06/03/19 05/14/24 HYDROcodone/APAP 10-325MG [[place] 1 tab PO Q6HR PRN 09/04/22 05/14/24 10-325] Levothyroxine Sodium [Synthroid] 50 mcg PO DAILY 04/17/24 05/14/24 Loratadine [Claritin] 10 mg PO DAILY 04/17/24 05/14/24 Rimegepant Sulfate [Nurtec Odt] 75 mg PO DIRECTED PRN 04/17/24 05/14/24 Unk Vitamin D 1 tab PO DAILY 04/17/24 05/14/24 Verapamil HCl [Verapamil Sr] 120 mg PO DAILY 04/17/24 05/14/24 Previous Rx's Medication Instructions Recorded Butalb/APAP/Caff 50-325-40Mg 1 tab PO Q6H PRN #12 tablet 09/11/23 [Fioricet 50-325-40] Ondansetron Odt [Zofran Odt] 4 mg PO Q8HR PRN #20 tab 06/06/24 Allergies Allergy/AdvReac Type Severity Reaction Status Date / Time morphine Allergy Rash/Hives Verified 06/05/24 23:30 ibuprofen [From Motrin] AdvReac cannot Verified 06/05/24 23:30 take due to hx of ulcers Review of Systems ROS Statement: Those systems with pertinent positive or pertinent negative responses have been documented in the HPI. ROS Other: All systems not noted in ROS Statement are negative. Past Medical History Past Medical History: GERD/Reflux, Hyperlipidemia, Osteoarthritis (OA), Thyroid Disorder Additional Past Medical History / Comment(s): Back pain, nerve pain, Migraines, sinus infection sx at this time no fever. allergies History of Any Multi-Drug Resistant Organisms: None Reported Past Surgical History: Back Surgery Additional Past Surgical History / Comment(s): spine fusion, lipoma removal x 2, oral surgery, enlarged lymph node removed. scope on left knee Past Anesthesia/Blood Transfusion Reactions: No Reported Reaction Past Psychological History: No Psychological Hx Reported Smoking Status: Former smoker Past Alcohol Use History: Rare Past Drug Use History: None Reported - Past Family History Mother Family Medical History: Hyperlipidemia General Exam Limitations: no limitations General appearance: alert, in no apparent distress Head exam: Present: atraumatic, normocephalic Eye exam: Present: normal appearance, EOMI Neck exam: Present: normal inspection. Absent: meningismus Respiratory exam: Absent: respiratory distress Cardiovascular Exam: Present: regular rate GI/Abdominal exam: Present: soft, tenderness, guarding. Absent: distended, rebound, rigid Neurological exam: Present: alert, oriented X3 Psychiatric exam: Present: normal affect, normal mood Skin exam: Present: warm, dry Course Vital Signs 06/05/24 06/06/24 23:30 02:16 Temperature 97.5 F L 97.7 F Pulse Rate 66 57 L Respiratory 19 16 Rate Blood Pressure 167/92 120/90 O2 Sat by Pulse 97 95 Oximetry Medical Decision Making - Medical Decision Making Was pt. sent in by a medical professional or institution (, PA, DESIZING MACHINE OPERATOR, urgent care, hospital, or longterm...) When possible be specific @ -No Did you speak to anyone other than the patient for history (EMS, parent, family, police, friend...)? What history was obtained from this source @ -No Did you review nursing and triage notes (agree or disagree)? Why? @ -I reviewed and agree with nursing and triage notes Were old charts reviewed (outside hosp., previous admission, EMS record, old EKG, old radiological studies, urgent care reports/EKG's, longterm records)? Report findings @ -No old charts were reviewed Differential Diagnosis (chest pain, altered mental status, abdominal pain women, abdominal pain men, vaginal bleeding, weakness, fever, dyspnea, syncope, headache, dizziness, GI bleed, back pain, seizure, CVA, palpatations, mental health, musculoskeletal)? @ -MDM Differential Abdominal Pain Men: Appendicitis, cholecystitis, diverticulosis, ischemic bowel, pancreatitis, hepatitis, UTI, gastroenteritis, AAA, incarcerated hernia, bowel obstruction, constipation, inflammatory bowel, hepatitis, peptic ulcer disease, splenic infarction, perforated viscus, testicular torsion... This is not meant to be an all-inclusive list EKG interpreted by me (3pts min.). @ -As above X-rays interpreted by me (1pt min.). @ -None done CT interpreted by me (1pt min.). @ -CT shows hepatomegaly with evidence of hepatic steatosis. The gallbladder is moderately distended without CT evidence for calcified gallstones, gallbladder wall thickening, or biliary dilatation. No evidence for bowel obstruction. No asymmetric bowel mucosal abnormality. Mild to moderate stool burden. No appreciable diverticulitis. No free intraperitoneal fluid or pneumo peritoneum. Incidental normal caliber appendix. The kidneys demonstrate normal enhancement. Punctate nonobstructive nephrolithiasis noted bilaterally, only appreciated on coronal reformatted imaging. No hydronephrosis or ureteral stones. This is a presumed incidental finding U/S interpreted by me (1pt. min.). @ -None done What testing was considered but not performed or refused? (CT, X-rays, U/S, labs)? Why? @ -None What meds were considered but not given or refused? Why? @ -None Did you discuss the management of the patient with other professionals (professionals i.e. Dr., PA, DESIZING MACHINE OPERATOR, lab, RT, psych nurse, social work specialist, plate slitter and inspector, teacher, law enforcement officer, director of casework)? Give summary @ -No Was smoking cessation discussed for >3mins.? @ -No Was critical care preformed (if so, how long)? @ -No Were there social determinants of health that impacted care today? How? (Homelessness, low income, unemployed, alcoholism, drug addiction, transportation, low edu. Level, literacy, decrease access to med. care, [facility], rehab)? @ -No Was there de-escalation of care discussed even if they declined (Discuss DNR or withdrawal of care, Hospice)? DNR status @ -No What co-morbidities impacted this encounter? (DM, HTN, Smoking, COPD, CAD, Cancer, CVA, ARF, Chemo, Hep., AIDS, mental health diagnosis, sleep apnea, morbid obesity)? @ -None Was patient admitted / discharged? Hospital course, mention meds given and route, prescriptions, significant lab abnormalities, going to OR and other pertinent info. @ -38-year-old male presenting with chief complaint of right-sided abdominal pain that started tonight. Nausea with no vomiting. History and physical exam are conducted. Lab work shows no leukocytosis or anemia. Amylase lipase AST ALT alkaline phosphatase are WNL. Urine shows no infectious process or bleeding. CT does show distended gallbladder with no signs of cholecystitis. There is no appendicitis, bowel obstruction, or other acute process to account for the patient's pain. Pain likely due to biliary colic. Patient is educated on today's findings. He is provided with pain and nausea medication for home. Provided with general surgery follow-up. Discharged home. Follow-up with PCP. Report back to ER with any new or worsening symptoms. Discussed return parameters and answered all questions. Patient conveyed verbal understanding and agreed to the plan. I discussed this case in detail with my attending Dr. Garduno Undiagnosed new problem with uncertain prognosis? @ -No Drug Therapy requiring intensive monitoring for toxicity (Heparin, Nitro, Insulin, Cardizem)? @ -No Were any procedures done? @ -No Diagnosis/symptom? @ -Biliary colic Acute, or Chronic, or Acute on Chronic? @ -Acute Uncomplicated (without systemic symptoms) or Complicated (systemic symptoms)? @ -Uncomplicated Side effects of treatment? @ -No Exacerbation, Progression, or Severe Exacerbation? @ -No Poses a threat to life or bodily function? How? (Chest pain, USA, NM, pneumonia, PE, COPD, DKA, ARF, appy, cholecystitis, CVA, Diverticulitis, Homicidal, Suicidal, threat to staff... and all critical care pts) @ -Low likelihood - Lab Data Result diagrams: 06/05/24 23:51 06/05/24 23:51 Lab Results 06/05/24 06/05/24 06/05/24 Range/Units 23:51 23:51 23:51 WBC 9.2 (3.8-10.6) k/uL RBC 5.25 (4.30-5.90) m/uL Hgb 15.2 (13.0-17.5) gm/dL Hct 44.7 (39.0-53.0) % MCV 85.2 (80.0-100.0) fL MCH 29.1 (25.0-35.0) pg MCHC 34.1 (31.0-37.0) g/dL RDW 13.0 (11.5-15.5) % Plt Count 295 (150-450) k/uL MPV 7.7 Neutrophils % 46 % Lymphocytes % 37 % Monocytes % 8 % Eosinophils % 5 % Basophils % 1 % Neutrophils # 4.2 (1.3-7.7) k/uL Lymphocytes # 3.4 (1.0-4.8) k/uL Monocytes # 0.7 (0-1.0) k/uL Eosinophils # 0.5 (0-0.7) k/uL Basophils # 0.1 (0-0.2) k/uL Sodium 137 (137-145) mmol/L Potassium 4.3 (3.5-5.1) mmol/L Chloride 108 H (98-107) mmol/L Carbon Dioxide 21 L (22-30) mmol/L Anion Gap 8 mmol/L BUN 15 (9-20) mg/dL Creatinine 0.90 (0.66-1.25) mg/dL Est GFR (CKD-EPI)AfAm >90 (>60 ml/min/1.73 sqM) Est GFR (CKD-EPI)NonAf >90 (>60 ml/min/1.73 sqM) Glucose 106 H (74-99) mg/dL Plasma Lactic Acid Abimael 0.9 (0.7-2.0) mmol/L Calcium 9.5 (8.4-10.2) mg/dL Total Bilirubin 0.5 (0.2-1.3) mg/dL AST 27 (17-59) U/L ALT 30 (4-49) U/L Alkaline Phosphatase 44 (38-126) U/L Total Protein 7.6 (6.3-8.2) g/dL Albumin 4.7 (3.5-5.0) g/dL Amylase 43 (30-110) U/L Lipase 68 (23-300) U/L Urine Color Urine Appearance (Clear) Urine pH (5.0-8.0) Ur Specific [place] (1.001-1.035) Urine Protein (Negative) Urine Glucose (UA) (Negative) Urine Ketones (Negative) Urine Blood (Negative) Urine Nitrite (Negative) Urine Bilirubin (Negative) Urine Urobilinogen (<2.0) mg/dL Ur Leukocyte Esterase (Negative) 06/05/24 Range/Units 23:51 WBC (3.8-10.6) k/uL RBC (4.30-5.90) m/uL Hgb (13.0-17.5) gm/dL Hct (39.0-53.0) % MCV (80.0-100.0) fL MCH (25.0-35.0) pg MCHC (31.0-37.0) g/dL RDW (11.5-15.5) % Plt Count (150-450) k/uL MPV Neutrophils % % Lymphocytes % % Monocytes % % Eosinophils % % Basophils % % Neutrophils # (1.3-7.7) k/uL Lymphocytes # (1.0-4.8) k/uL Monocytes # (0-1.0) k/uL Eosinophils # (0-0.7) k/uL Basophils # (0-0.2) k/uL Sodium (137-145) mmol/L Potassium (3.5-5.1) mmol/L Chloride (98-107) mmol/L Carbon Dioxide (22-30) mmol/L Anion Gap mmol/L BUN (9-20) mg/dL Creatinine (0.66-1.25) mg/dL Est GFR (CKD-EPI)AfAm (>60 ml/min/1.73 sqM) Est GFR (CKD-EPI)NonAf (>60 ml/min/1.73 sqM) Glucose (74-99) mg/dL Plasma Lactic Acid Abimael (0.7-2.0) mmol/L Calcium (8.4-10.2) mg/dL Total Bilirubin (0.2-1.3) mg/dL AST (17-59) U/L ALT (4-49) U/L Alkaline Phosphatase (38-126) U/L Total Protein (6.3-8.2) g/dL Albumin (3.5-5.0) g/dL Amylase (30-110) U/L Lipase (23-300) U/L Urine Color Light Yellow Urine Appearance Clear (Clear) Urine pH 6.0 (5.0-8.0) Ur Specific [place] 1.021 (1.001-1.035) Urine Protein Negative (Negative) Urine Glucose (UA) Negative (Negative) Urine Ketones Negative (Negative) Urine Blood Negative (Negative) Urine Nitrite Negative (Negative) Urine Bilirubin Negative (Negative) Urine Urobilinogen <2.0 (<2.0) mg/dL Ur Leukocyte Esterase Negative (Negative) Disposition Clinical Impression: Biliary colic Disposition: HOME SELF-CARE Condition: Good Instructions (If sedation given, give patient instructions): Biliary Colic (ED), Low Fat Diet (ED) Additional Instructions: Follow-up with PCP and surgeon. Report back to ER with any new or worsening symptoms. Prescriptions: Ondansetron Odt [Zofran Odt] 4 mg PO Q8HR PRN #20 tab PRN Reason: Nausea Is patient prescribed a controlled substance at d/c from ED?: No Referrals: Alex Vallecillo DO [Primary Care Provider] - 1-2 days Lakisha Obrien MD [STAFF PHYSICIAN] - 1-2 days Time of Disposition: 02:33
[2024-06-06] MEDS: HYDROmorphone 1 MG/ML 1 ML SYRINGE IVP STA (02:10)
[2024-06-06 02:17] VITALS: BP 120/90; PULSE 57; RESP 16; TEMP 97.7
--- NOTE | 2024-06-06 02:18 | CT ---
EXAM: CT Abdomen and Pelvis With Intravenous Contrast CLINICAL HISTORY: Right sided abdominal pain TECHNIQUE: Axial computed tomography images of the abdomen and pelvis with intravenous contrast. CTDI is 30.7 mGy and DLP is 1502.9 mGy-cm. This CT exam was performed using one or more of the following dose reduction techniques: automated exposure control, adjustment of the mA and/or kV according to patient size, and/or use of iterative reconstruction technique. COMPARISON: No relevant prior studies available. FINDINGS: Lung bases: Unremarkable. No mass. No consolidation. ABDOMEN: Liver: Hepatomegaly with evidence of hepatic steatosis. Gallbladder and bile ducts: The gallbladder is moderately distended without calcified gallstones. No CT evidence for gallbladder wall thickening or biliary dilatation. Pancreas: Unremarkable. No mass. No ductal dilation. Spleen: Unremarkable. No splenomegaly. Adrenals: Unremarkable. No mass. Kidneys and ureters: The kidneys demonstrate normal enhancement. Punctate nonobstructive nephrolithiasis noted bilaterally, only appreciated on coronal reformatted imaging. No hydronephrosis or ureteral stones. Stomach and bowel: No evidence for bowel obstruction. No asymmetric bowel mucosal abnormality. Mild to moderate stool burden. No appreciable diverticulitis. PELVIS: Appendix: The stomach is predominantly decompressed with only minimal fluid and gas internally. No gastric mucosal thickening. The normal caliber appendix is noted inferior to the cecum in the right lower quadrant. Bladder: The bladder is only mildly distended without bladder wall thickening or bladder stones. Reproductive: Unremarkable as visualized. ABDOMEN and PELVIS: Intraperitoneal space: Unremarkable. No free air. No significant fluid collection. Bones/joints: Posterior fusion at L5-S1 with pedicle screws and paraspinal rods. Interbody cage noted at L5-S1. No acute osseous abnormality. No dislocation. Soft tissues: Unremarkable. Vasculature: Unremarkable. No abdominal aortic aneurysm. Lymph nodes: Unremarkable. No enlarged lymph nodes. IMPRESSION: 1. Hepatomegaly with evidence of hepatic steatosis. The gallbladder is moderately distended without CT evidence for calcified gallstones, gallbladder wall thickening or biliary dilatation. 2. No evidence for bowel obstruction. No asymmetric bowel mucosal abnormality. Mild to moderate stool burden. No appreciable diverticulitis. No free intraperitoneal fluid or pneumoperitoneum. Incidental normal caliber appendix. 3. The kidneys demonstrate normal enhancement. Punctate nonobstructive nephrolithiasis noted bilaterally, only appreciated on coronal reformatted imaging. No hydronephrosis or ureteral stones. This is a presumed incidental finding.
[2024-06-06] MEDS: traMADol 50 MG STARTER PACK 3 TAB BTL PO STA (02:43)
== END 2024-06-06 02:55 | disposition home or self-care (01) ==
LOC: EC 23:25
DX: K80.50 Calculus of bile duct without cholangitis or cholecystitis without obstruction (principal); N20.0 Calculus of kidney; Z87.891 Personal history of nicotine dependence; Z88.6 Allergy status to analgesic agent; Z88.8 Allergy status to other drugs, medicaments and biological substances
CPT/HCPCS: 36415; 80053; 82150; 83605; 83690; 85025; 81003; 74177; 99284; 96374; 96375; 96376; 96361 ×3; J2405; J1170 ×2; Q9967

== ENCOUNTER 2024-06-26 11:50 | Day surgery (SDC) | payer OTHER ==
[2024-06-26] MEDS: IV FLUID CONTINUATION 1,000 ML IV ONE ×2 (12:12→14:02)
[2024-06-26 12:17] VITALS: RESP 16; TEMP 97.4
[2024-06-26] MEDS: LACTATED RINGERS 1,000 ML IV SCH (12:25)
[2024-06-26] MEDS ORDERED: MIDAZOLAM 2 MG/2 ML VIAL ONE (13:30)
[2024-06-26] MEDS ORDERED: ROPIVACAINE 5MG/ML 20ML VIAL ONE (13:30)
--- NOTE | 2024-06-26 14:01 | P.PCN ---
Date of Procedure: 06/26/24 Surgeon: Mindi St Pathology: none sent Condition: stable Disposition: PACU Description of Procedure: PREOPERATIVE DIAGNOSIS: Cervicogenic headache POSTOPERATIVE DIAGNOSIS: Same as above PROCEDURES: Diagnostic Bilateral medial branch block with fluoroscopic guidance for levels C2,C3 and third occipital nerve bilaterally ANESTHESIA: Local with 1% lidocaine; IV moderate conscious sedation with 2 mg of Versed Sedation time: 1402-0462 EBL: Minimal PROCEDURE INDICATION: The patient with neck pain secondary to cervical arthropathy unresponsive to more conservative treatments. PROCEDURE DESCRIPTION / TECHNIQUE: The patient was seen and identified in the preoperative area. Risks, benefits, complications, and alternatives were discussed with the patient, the patient agreed to proceed with the procedure and signed the consent. IV was started. Vital signs remained stable throughout the procedure.the patient has mostly occipital headache from cervicogenic origin and that's why I canceled the C4 level. Patient was taken to the OR and time out was completed. The patient was placed in the supine position on the procedure table. . The cervical area was prepped with chloraprep and draped in the usual sterile fashion. Critical pause was taken. Vital signs were closely monitored during the procedure. Conscious sedation was used during the procedure to decrease patients anxiety. Using cross-table lateral fluoroscopy, the centers of the trapezoid of C2,C3 were identified, marked, and localized with 1% lidocaine 1 ml at each level for skin and Sub Q infiltrations then in the middle of the joint line between C2 and C3 was identified skin was marked at this area localized with lidocaine 1% as a target point for the third occipital nerve block.. Subsequently, a 25 G 3.5 inch spinal needle was advanced guided by fluoroscopy to the target points mentioned above. Subsequently, 0.5 ml of ropivacaine 0.5%was injected at each level after negative aspiration for blood and CSF. Thida were then removed intact the same procedure was repeated on the left side in the same manner. COMPLICATIONS: No acute complications. DISPOSITION / PLANS: The patient was transferred to the recovery area in a stable condition for observation and was discharged from the recovery room after meeting discharge criteria. Home discharge instructions given to the patient by the staff. The patient was reexamined prior to discharge. The patient will schedule a follow up in the clinic in 2-4 weeks.
--- NOTE | 2024-06-26 14:10 | FL ---
Fluoroscopy History: FACET BLOCK FRAN C/TH Facet block Bilateral. [address] Fl time- 21.6sec DAP- [id number]
[2024-06-26 14:20] VITALS: BP 114/72; PULSE 57
== END 2024-06-26 14:47 | disposition home or self-care (01) ==
LOC: ORPAIN 11:50
PROVIDERS: ATTEND Anesthesiology
DX: G44.86 Cervicogenic headache (principal); M47.812 Spondylosis without myelopathy or radiculopathy, cervical region
CPT/HCPCS: 64490; 64491 ×2; 99152; J2250; J2795

== ENCOUNTER → 2024-07-06 | Outpatient (CLI) | payer OTHER ==
--- NOTE | 2024-07-28 09:52 | US ---
EXAMINATION TYPE: US abdomen limited DATE OF EXAM: 07/06/2024, dictated on 07/28/2024 due to downtime COMPARISON: NONE CLINICAL INDICATION: Male, 38 years old with history of Pre-surgical evaluation for cholecystectomy; TECHNIQUE: Multiple sonographic images of the right upper quadrant are obtained. FINDINGS: EXAM MEASUREMENTS: Liver Length: 21.9 cm Gallbladder Wall: 0.3 cm CBD: 0.2 cm Right Kidney: 10.9 x 4.4 x 5.0 cm SWIMMING POOL CLEANER NOTES: Pancreas: wnl Liver: Increased attenuation, enlarged. No focal lesion. Gallbladder: wnl Evidence for sonographic Crandall's sign: No CBD: wnl Right Kidney: wnl IMPRESSION: 1. Hepatomegaly at 21.9 cm with at least moderate hepatic steatosis. Appropriate clinical management is advised. 2. No gallstones or biliary ductal dilatation.
== END | disposition home or self-care (01) ==
LOC: RADUSWWP 07:15
PROVIDERS: ATTEND Surgery Plastic and Reconstructive Surgery
DX: R10.11 Right upper quadrant pain (principal); K76.0 Fatty (change of) liver, not elsewhere classified
CPT/HCPCS: 76705

== ENCOUNTER 2024-07-09 15:10 | Day surgery (SDC) | payer OTHER ==
[~2024-07-09 15:10] MED LIST changes: +ACETAMINOPHEN TAB 500 MG TAB ONE; +DEXAMETHASONE SOD PHOSPHATE 4 MG/ML 1 ML VIAL ONE; +GLYCOPYRROLATE 0.2 MG/ML 2 ML VIAL ONE; +HEPARIN SODIUM,PORCINE 5,000 UNIT/ML 1 ML VIAL ONE; +HYDROmorphone (PF) 1 MG/ML ONE; +LACTATED RINGERS 1,000 ML BAG ONE; -LACTATED RINGERS 1,000 ML IV SCH; +LIDOCAINE 1% INJ 10MG/ML (20 ML MDV) ONE; +LIDOCAINE 2%-EPI 1:100,000 20 ML VIAL ONE; +MIDAZOLAM 2 MG/2 ML VIAL ONE; +NEOSTIGMINE 1 MG/ML 10 ML VIAL ONE; +ONDANSETRON 4 MG/2 ML VIAL ONE; +PROPOFOL 10 MG/ML 20 ML VIAL IV ONE; +ROCURONIUM 10 MG/ML (5 ML VIAL) IV ONE; +SODIUM CHLORIDE 0.9% 100 ML BAG IV ONE; +SUCCINYLCHOLINE CHLORIDE 200 MG/10 ML VIAL IV ONE; +ceFAZolin 1,000 MG VIAL ONE; +fentaNYL (PF) 50 MCG/ML 2 ML AMP ONE
[2024-07-09] MEDS ORDERED: HYDROmorphone 0.5 MG/0.5 ML SYRINGE ONE ×3 (15:49→16:30)
[2024-07-09] MEDS ORDERED: ONDANSETRON 4 MG/2 ML VIAL ONE (17:40)
== END 2024-07-09 18:18 | disposition home or self-care (01) ==
LOC: OR 15:10
PROVIDERS: ATTEND Surgery Plastic and Reconstructive Surgery
DX: K81.2 Acute cholecystitis with chronic cholecystitis
CPT/HCPCS: 47563; 85025; 88304; S2900

== ENCOUNTER → 2024-07-20 | Outpatient (CLI) | payer OTHER | LOC: PNWHC3 09:45 | PROVIDERS: ATTEND Specialist | DX: M47.812 Spondylosis without myelopathy or radiculopathy, cervical region | CPT/HCPCS: 99211 ==

== ENCOUNTER 2024-07-24 12:30 | Day surgery (SDC) | payer OTHER ==
[2024-07-24] MEDS ORDERED: LACTATED RINGERS 1,000 ML BAG ONE (14:13)
[2024-07-24] MEDS ORDERED: ROPIVACAINE 5MG/ML 20ML VIAL ONE (14:20)
[2024-07-24] MEDS ORDERED: fentaNYL (PF) 50 MCG/ML 2 ML AMP ONE (14:20)
[2024-07-24] MEDS ORDERED: MIDAZOLAM 2 MG/2 ML VIAL ONE (14:20)
--- NOTE | 2024-09-15 13:00 | FL ---
EXAMINATION TYPE: FL guided pain mgmt statistic DATE OF EXAM: 07/31/2024 8:47 AM COMPARISON: Pre Operative Images if available both CT/MRI or plain film CLINICAL INDICATION: Male, 39 years old with history of FRAN CERVICAL FB; TECHNIQUE: FL guided pain mgmt statistic, multiple fluoroscopic images provided for procedure. Total fluoroscopy time: 31 seconds Total submitted images to PACS: 7 DAP: 0.48044 mGym2 Gycm2 uGym2 cGycm2 or equivalent. FINDINGS: Fluoroscopic images during injection for pain management demonstrate multilevel degeneration changes throughout the spine. No evidence for fracture. No acute process identified. IMPRESSION: 1. No evidence for intraoperative complication. 2. Please see the operative/procedural note for further details. [facility], , 09/15/2024 12:57 PM
== END 2024-07-24 15:32 ==
LOC: ORPAIN 12:30
PROVIDERS: ATTEND Specialist
DX: M47.812 Spondylosis without myelopathy or radiculopathy, cervical region (principal); G44.86 Cervicogenic headache; Z88.5 Allergy status to narcotic agent; Z88.6 Allergy status to analgesic agent; Z79.890 Hormone replacement therapy; Z79.899 Other long term (current) drug therapy
CPT/HCPCS: 99152

== ENCOUNTER → 2024-07-30 | Outpatient (CLI) | payer OTHER ==
[2024-07-30 16:16] LABS: INR 0.96 sec (0.93-1.11); Prothrombin Time 10.4 sec (9.9-11.9)
[2024-07-30 17:03] LABS: HCT 47.5 % (39.6-50.0); HGB 16.1 g/dL (13.0-17.0); MCH 28.6 pg (27.0-32.0); MCHC 33.9 g/dL (32.0-37.0); MCV 84.5 FL (80.0-97.0); NRBC Per 100 WBC 0 X 10*3/uL (0.00-0.01); Platelet Count 373 X 10*3/uL (140-440); RBC 5.62 X 10*6/uL (4.40-5.60); RDW 12.3 % (11.5-14.5); WBC 7.15 X 10*3/uL (4.50-10.00)
[2024-07-30 19:47] LABS: ALT 21 U/L (10-49); AST 14 U/L (14-35); Albumin 4.9 g/dL (3.8-4.9); Albumin/Globulin Ratio 1.75 Ratio (1.60-3.17); Alkaline Phosphatase 41 U/L (41-126); Blood Urea Nitrogen 13.8 mg/dL (9.0-27.0); Carbon Dioxide 23.2 mmol/L (21.6-31.8); Chloride 100 mmol/L (96-109); Globulin 2.8 g/dL (1.6-3.3); Glucose 120 mg/dL (70-110); Potassium 4.7 mmol/L (3.5-5.5); Sodium 136 mmol/L (135-145); Total Bilirubin 0.5 mg/dL (0.3-1.2); Total Protein 7.7 g/dL (6.2-8.2)
== END | disposition home or self-care (01) ==
LOC: LABPAT 10:40
PROVIDERS: ATTEND Orthopaedic Surgery
DX: Z01.812 Encounter for preprocedural laboratory examination (principal); Z22.322 Carrier or suspected carrier of Methicillin resistant Staphylococcus aureus; Z79.899 Other long term (current) drug therapy; R58 Hemorrhage, not elsewhere classified; R31.0 Gross hematuria
CPT/HCPCS: 36415; 80053; 85027; 85610; 86850; 86900; 86901; 87070; 93005

== ENCOUNTER 2024-09-14 06:50 | Inpatient (IN) | payer OTHER ==
--- NOTE | 2024-09-13 20:23 | P.HPOR ---
"History of Present Illness H&P Date: 08/05/24 [facility] [address] [place] [address]| DO RAPHAEL CEDILLO, MSN, LEAD DENTAL ASSISTANT-C Patient Name: Papo Blunt Age/Sex: 39, MALE : 83 DATE OF SERVICE: Aug 05, 2024 2:00 PM VISIT TYPE: PREOPERATIVE H&P Approved [facility] DEMOGRAPHICS: Height: 5.11 Weight: 245 lbs BMI: 34.1 Occupation: [employer] VAS: 8? CHIEF COMPLAINT: Low back pain, LE pain IMPRESSION: It was my pleasure to have seen and examined Papo Blunt. I reviewed the patient's clinical syndrome, physical findings, and imaging studies during the appointment today. It is my impression that the patient has a diagnosis of. 1. L4-S1 spondylosis with stenosis 2. Lumbar spondylosis with radiculopathy 3. LE weakness 4. LE paresthesias 5. Low back pain with pseudoarthrosis L5-S1 Spine Surgery Clinical and Risk Review Papo Blunt is a 39 yo male presenting for evaluation of low back pain, LE pa resthesias, continued and progressive LE pain and radiculopathy. It was my pleasure to have seen and examined Papo Blunt. In our visit today we have had a chance to go over subjective complaints, phy sical examination findings and treatments including the natural course history without intervention and various interventional options. The patients imaging demonstrates the following findings: Severe spondylosis and disc collapse L5-S1 with moderate collapse L4-5 as well. B/L foraminal stenosis at L5-S1 along with central stenosis. There is segmental kyphosis noted at L4-5 due to the collapse as well as L5-S1. No fractures noted. No lesions. On a physical exam, Cathy Miguelfadia demonstrates the following findings: Severe low back pain and debility related to this Continued LE sx with progression at this time DTR all LE Weakness in DF and PF BLE 4/5 I have explained to the patient that as their condition progresses it will cause further neurological deficits and eventual progressive neurological changes. Based on the patients imaging, physical exam, and the rapid progression and disabling nature of their symptoms, at this time I recommend surgery in the form of a: STAGE I: Revision L4-S1 ANTERIOR LUMBAR INTERBODY FUSION; STAGE II: L4-S1 POSTEROLATERAL INSTRUMENTED FUSION. I discussed the risk and benefits of this procedure at length with Papo Blunt The patient agreed to consider pursuing the procedure above mentioned. Prior to surgery, they should follow up with her PCP (Cardio, ID, IM etc) for clearance. Questions were invited and answered, and the patient wishes to proceed as outlined below. Currently, I am recommending: * STAGE I: Revision L4-S1 ANTERIOR LUMBAR INTERBODY FUSION; STAGE II: L4-S1 P OSTEROLATERAL INSTRUMENTED FUSION * Review of surgical risks and benefits as well as an educational packet on the proposed surgical procedure. Risks: All surgical procedures come with inherent risks, including those related to positioning, anesthesia, intraoperative findings, and postoperative complications. It is important to understand that surgery does not come with any guarantee of a successful outcome as complications and adverse events are always possible. The patient was given a handout in the office today discussing the surgical procedure and risks associated with the intervention, both of which were discussed with the patient. These risks include but are not limited to the following: Experiencing same, different or even worse symptoms in back, neck, arms, or legs compared to before surgery. Requiring further surgery or other forms of treatment presently or at some time in the future at same or other levels of the intended spine surgery. On an extreme but fortunately relatively rare basis severe complications such as blindness, stroke, heart attack, temporary and/or permanent nerve injury, paralysis, coma, or may occur, sometimes without known explanation. Surgical complications may include but are not limited to risk of infection, fluid accumulation in the surgical dissection site, including a seroma or hematoma, that requires additional surgery, wound drainage, bleeding, new numbness or weakness, vision changes/loss, spinal fluid leakage, non-healing and/or infected incision, headaches, difficulty or inability to swallow, hoarseness, hemopneumothorax, pneumothorax, impotence, retrograde ejaculation, vaginal dryness; injury to nerves, spinal cord, blood vessels, lymphatics or other vital organs (i.e., bowel injury, injury to the great vessels); heterotopic bone formation; complications related to the hardware such as screws, rods, cages including misplaced hardware, device failure, instrumentation at the wrong spine level, hardware fracture/breakage, or hardware loosening; vertebral failure of the spinal column above or below the newly placed hardware; retained surgical instrumentations or devices and the need for further surgery. Medical risks of the planned spine surgery include but are not limited to generalized Infections to the whole body or local areas outside of the surgical site (sepsis), heart attack, bleeding, anaphylaxis, meningitis, seizure, epilepsy, hearing loss, burn taylor, laceration of the head or other areas of the body, bruising, hypersensitivity of the skin, bladder over distension; allergic reaction; shoulder injury related to positioning; fat, blood and air clots to other areas of the body like heart, lungs, brain; failure of internal organs such as lungs, kidneys, liver and excessive bleeding. If blood transfusions are necessary, note that transfusions may cause intolerance reactions such as anaphylaxis or other complex reactions. Despite best efforts, the results of spine surgery might not heal in terms of bone, soft tissues such as skin, fascia, ligaments, and joints. Additionally, in order to achieve best possible results, spine surgery may be carried out beyond the initially planned levels and involve decompression, fusion including insertion of hardware at levels other than the original intended area of surgical interest change some portions of the procedure in order to ensure the best possible outcomes. With spine surgery and spinal fusion, there are different off label uses of instrumentation (devices, implants and hardware) as well as biological substances (bone morphogenic proteins, demineralized bone matrix) as well as using extra bone from allograft sources (i.e. cadaver bone) or autograft (iliac crest bone, ribs, or the spine itself). The patient has been given information about these practices and their inherent risks and benefits. The patient has had a chance to review all the listed information, has been given print outs detailing this information, and has had all his/her questions answered to their satisfaction. It was my pleasure to have seen and examined Papo Blunt. In our visit today we have had a chance to go over my understanding of our patient's current condition, the natural course history without intervention and various interventional options. Questions were invited and answered, and the patient wishes to proceed as outlined above. I have seen and examined the patient for 25 minutes and we have spent more than 50% of the time in repeat and detailed counseling about the patient's condition, its natural course history without and as much as can be predicted with surgery and re-review of various surgical treatment options. In conclusion, Papo Blunt requested we proceed with the above suggested surgery and are willing to accept risks and limitations of the suggested surgery as to the nature of the disease process and our best attempts at treatment for the condition. Thank you again for allowing us to be part of your patient's care. Please don't hesitate to contact me if you have any further questions. FOLLOW UP: POSTOP PLAN AT NEXT VISIT: RECHECK WITH POST OP XRAY PATIENT EDUCATION: Medications Reviewed: YES In our visit today the patient and I have had a chance to go over my understanding of their current condition, the natural course history without intervention and various interventional options. Questions were invited and answered, and the patient wishes to proceed as outlined above. I will be sure to keep you updated after the patient returns here for further follow-up. Thank you again for your referral. Please do not hesitate to contact me if you have any further questions. Signed and authenticated by: Aug 06, 2024 1:00?PM EDT DO Isidro Cedillo [facility] [address] [id number] This document is confidential, intended only for the named recipient(s) and may contain information that is privileged or exempt from disclosure under applicable law. If you are not the intended recipient(s), you are notified that the dissemination, distribution or copying of this information is strictly prohibited. If you received this message in error, please notify the sender then delete this message. Past Medical History Past Medical History: GERD/Reflux, Hyperlipidemia, Osteoarthritis (OA), Thyroid Disorder Additional Past Medical History / Comment(s): Back pain, nerve pain, migraines, seasonal allergies, hypothyroidism History of Any Multi-Drug Resistant Organisms: None Reported Past Surgical History: Back Surgery, Cholecystectomy Additional Past Surgical History / Comment(s): spine fusion, lipoma removal x 2, oral surgery, enlarged lymph node removed, Lt. knee arthroscopy Past Anesthesia/Blood Transfusion Reactions: No Reported Reaction Smoking Status: Current every day smoker - Past Family History Mother Family Medical History: Hyperlipidemia Father Family Medical History: Cancer Additional Family Medical History / Comment(s): skin cancer Medications and Allergies Home Medications Medication Instructions Recorded Confirmed Type Cyclobenzaprine [Flexeril] 10 mg PO TID PRN 01/16/19 09/08/24 History Propranolol HCl [Inderal Xl] 120 mg PO HS 01/16/19 09/08/24 History gemfibroziL [Lopid] 600 mg PO AC-BID 01/16/19 09/08/24 History HYDROcodone/APAP 10-325MG [Ada 1 tab PO Q6HR PRN 09/04/22 09/08/24 History 10-325] Levothyroxine Sodium [Synthroid] 50 mcg PO DAILY 04/17/24 09/08/24 History Loratadine [Claritin] 10 mg PO HS 04/17/24 09/08/24 History Cholecalciferol [Vitamin D3 (25 50 mcg PO DAILY 07/01/24 09/08/24 History Mcg = 1000 Iu)] Multivitamin [Multivitamins Adult 1 tab PO DAILY 09/08/24 09/08/24 History Gummies] [place]-3/Dha/Epa/Fish Oil [Fish Oil 1 tab PO BID 09/08/24 09/08/24 History 1,000 mg Softgel] Venlafaxine HCl [Effexor] 37.5 mg PO BID 09/08/24 09/08/24 History Allergies Allergy/AdvReac Type Severity Reaction Status Date / Time morphine Allergy Rash/Hives Verified 09/08/24 12:36 ibuprofen [From Motrin] AdvReac cannot Verified 09/08/24 12:36 take due to hx of ulcers Physical Examination Osteopathic Statement: *. No significant issues noted on an osteopathic structural exam other than those noted in the History and Physical/Consult."
[~2024-09-14 06:50] MED LIST changes: -ACETAMINOPHEN TAB 500 MG TAB ONE; -DEXAMETHASONE SOD PHOSPHATE 4 MG/ML 1 ML VIAL ONE; -GLYCOPYRROLATE 0.2 MG/ML 2 ML VIAL ONE; -HEPARIN SODIUM,PORCINE 5,000 UNIT/ML 1 ML VIAL ONE; -HYDROmorphone (PF) 1 MG/ML ONE; -LACTATED RINGERS 1,000 ML BAG ONE; +LIDOCAINE 1% (10MG/ML) FOR IV START INTRADERMA PRN; -LIDOCAINE 1% INJ 10MG/ML (20 ML MDV) ONE; -LIDOCAINE 2%-EPI 1:100,000 20 ML VIAL ONE; -MIDAZOLAM 2 MG/2 ML VIAL ONE; -NEOSTIGMINE 1 MG/ML 10 ML VIAL ONE; +ONDANSETRON 4 MG/2 ML VIAL IVP PRN; -ONDANSETRON 4 MG/2 ML VIAL ONE; -PROPOFOL 10 MG/ML 20 ML VIAL IV ONE; -ROCURONIUM 10 MG/ML (5 ML VIAL) IV ONE; -SODIUM CHLORIDE 0.9% 100 ML BAG IV ONE; -SUCCINYLCHOLINE CHLORIDE 200 MG/10 ML VIAL IV ONE; +TRANEXAMIC 1,000 MG/100ML-NACL 1,000 MG in SALINE 1 100ML.BAG IVPB PRN; -ceFAZolin 1,000 MG VIAL ONE; +fentaNYL (PF) 50 MCG/ML 2 ML AMP IVP PRN; -fentaNYL (PF) 50 MCG/ML 2 ML AMP ONE
[2024-09-14] MEDS: IV FLUID CONTINUATION 1,000 ML IV ONE ×2 (07:21→07:25)
[2024-09-14 07:31] LABS: Basophils # (A) 0.1 k/uL (0-0.2); Basophils % (A) 1 %; Eosinophils # (A) 0.4 k/uL (0-0.7); Eosinophils % (A) 5 %; HCT 45.4 % (39.0-53.0); HGB 15.4 gm/dL (13.0-17.5); Lymphocytes # (A) 2.4 k/uL (1.0-4.8); Lymphocytes % (A) 28 %; MCH 28.9 pg (25.0-35.0); MCHC 33.9 g/dL (31.0-37.0); MCV 85.1 fL (80.0-100.0); Mean Platelet Volume 6.9; Monocytes # (A) 0.7 k/uL (0-1.0); Monocytes % (A) 9 %; Neutrophils # (A) 4.7 k/uL (1.3-7.7); Neutrophils % (A) 55 %; Platelet Count 370 k/uL (150-450); RBC 5.34 m/uL (4.30-5.90); RDW 12.5 % (11.5-15.5); WBC 8.6 k/uL (3.8-10.6)
[2024-09-14] MEDS: DEXAMETHASONE SOD PHOSPHATE 4 MG/ML 1 ML VIAL IV ONE (07:35)
[2024-09-14] MEDS: ONDANSETRON 4 MG/2 ML VIAL IVP ONE (07:35)
[2024-09-14] MEDS: LACTATED RINGERS 1,000 ML IV SCH (07:35)
[2024-09-14] MEDS: ACETAMINOPHEN TAB 500 MG TAB PO PRN (07:36)
[2024-09-14] MEDS: GABAPENTIN 300 MG CAP PO PRN (07:36)
[2024-09-14 07:41] LABS: ALT 21 U/L (4-49); AST 22 U/L (17-59); African American GFR (CKD) >90 (>60 ml/min/1.73 sqM); Albumin 4.6 g/dL (3.5-5.0); Alkaline Phosphatase 43 U/L (38-126); Anion Gap 12 mmol/L; Blood Urea Nitrogen 19 mg/dL (9-20); Calcium 9.8 mg/dL (8.4-10.2); Carbon Dioxide 24 mmol/L (22-30); Chloride 104 mmol/L (98-107); Glucose 132 mg/dL (74-99); Non-African American GFR(CKD) >90 (>60 ml/min/1.73 sqM); Sodium 140 mmol/L (137-145); Total Bilirubin 0.5 mg/dL (0.2-1.3); Total Protein 7.9 g/dL (6.3-8.2)
[2024-09-14] MEDS: MIDAZOLAM 2 MG/2 ML VIAL IV PRN (07:45)
[2024-09-14 07:47] LABS: Prothrombin Time 10.8 sec (10.0-12.5)
--- NOTE | 2024-09-14 08:11 | P.ANPRN ---
Procedure Note - Anesthesia - Invasive Line Right Arterial Line Time Out Performed: Yes Date of Procedure: 09/14/24 Time of Procedure: 07:54 Location of Patient: PreOp Preparation: Sterile Prep Arterial Line Location: Radial Ultrasound Used: Yes Purpose - Visualization and Identification of Vasculature: Yes Image Stored and Saved: Yes Narrative: Invasive line placement per sterile protocol utilized. Attemptx1. tolerated well.
[2024-09-14] MEDS ORDERED: TRANEXAMIC 1,000 MG/100ML-NACL PREMIX BAG ONE (09:30)
[2024-09-14] MEDS ORDERED: ALBUMIN HUMAN 5% (25gm) 500 ML VIAL IVPB ONE (09:30)
[2024-09-14] MEDS ORDERED: WATER FOR INJECTION, STERILE 10 ML VIAL IV ONE (09:30)
[2024-09-14] MEDS ORDERED: SUCCINYLCHOLINE CHLORIDE 200 MG/10 ML VIAL IV ONE (09:30)
[2024-09-14] MEDS ORDERED: NEOSTIGMINE 1 MG/ML 10 ML VIAL ONE (09:30)
[2024-09-14] MEDS ORDERED: MIDAZOLAM 2 MG/2 ML VIAL ONE (09:30)
[2024-09-14] MEDS ORDERED: LIDOCAINE 1% INJ 10MG/ML (20 ML MDV) ONE (09:30)
[2024-09-14] MEDS ORDERED: fentaNYL (PF) 50 MCG/ML 2 ML AMP ONE (09:30)
[2024-09-14] MEDS ORDERED: ROCURONIUM 10 MG/ML (5 ML VIAL) IV ONE (09:30)
[2024-09-14] MEDS ORDERED: GLYCOPYRROLATE 0.2 MG/ML 2 ML VIAL ONE (09:30)
[2024-09-14] MEDS ORDERED: PROPOFOL 10 MG/ML 20 ML VIAL IV ONE (09:30)
[2024-09-14] MEDS ORDERED: KETAMINE HCL IN 0.9 % NACL 50 MG/5 ML SYRINGE ONE (09:30)
[2024-09-14] MEDS ORDERED: PHENYLEPHRINE 10 MG/ML VIAL ONE (09:30)
[2024-09-14] MEDS ORDERED: CALCIUM CHLORIDE 100 MG/ML 10 ML SYRINGE ONE (09:30)
[2024-09-14] MEDS ORDERED: ePHEDrine 50 MG/ML 1 ML VIAL ONE (09:30)
[2024-09-14] MEDS: THROMBIN (BOVINE) 5,000 UNIT VIAL MISCELLANE ONE ×2 (10:20→14:00)
[2024-09-14] MEDS: LIDOCAINE 2%-EPI 1:100,000 20 ML VIAL SQ ONE (10:56)
[2024-09-14] MEDS: BUPIVACAINE (PF) 0.5% 30 ML VIAL SQ ONE (10:59)
[2024-09-14] MEDS: LACTATED RINGERS 1,000 ML IV ONE ×3 (11:30→16:13)
[2024-09-14] MEDS: ceFAZolin 3,000 MG in SODIUM CHLORIDE 0.9% IRRIGATIO 3,000 ML IRRIGATION ONE (14:01)
[2024-09-14] MEDS: GENTAMICIN 80 MG in SODIUM CHLORIDE 0.9% IRRIGATIO 3,000 ML IRRIGATION ONE (14:01)
[2024-09-14] MEDS ORDERED: ONDANSETRON 4 MG/2 ML VIAL IVP PRN (15:10)
[2024-09-14] MEDS: VANCOMYCIN 1,000 MG VIAL MISCELLANE ONE (15:30)
--- NOTE | 2024-09-14 16:30 | P.OP ---
Date of Procedure: 09/14/24 Preoperative Diagnosis: 1. PSEUDOARTHROSIS L5-S1 WITH SPONDYLOLYSIS 2. GRADE I SPONDYLOLISTHESIS L5-S1 3. L4-S1 SPONDYLOSIS WITH STENOSIS 4. RLE RADICULOPATHY 5. LOW BACK PAIN Postoperative Diagnosis: 1. PSEUDOARTHROSIS L5-S1 WITH SPONDYLOLYSIS 2. GRADE I SPONDYLOLISTHESIS L5-S1 3. L4-S1 SPONDYLOSIS WITH STENOSIS 4. RLE RADICULOPATHY 5. LOW BACK PAIN Procedure(s) Performed: STAGE I: COSURGEON WITH DR. HAIDER, VASCULAR SURGERY FOR ANTERIOR RETROPERITO ANDREW EXPOSURE TO THE LUMBAR SPINE -L5 ANTERIOR VERTEBRAL BODY OSTEOTOMY FOR REMOVAL OF CAGE AND DECOMPRESSION OF LUMBAR SPINE. -L5-S1 ANTERIOR LUMBAR INTERBODY FUSION, REVISION -INSERTION OF BIOMECHANICAL DEVICE CAGE X1 -REMOVAL OF OLD INTERBODY CAGE L5-S1 DUE TO PSEUDOARTHROSIS AND FAILURE OF HARDWARE -ANTERIOR INSTRUMENTATION L5-S1 STAGE II: SAME DAY -L4-S1 POSTEROLATERAL INSTRUMENTED FUSION -L4-S1 SEGMENTAL INSTRUMENTATION -REMOVAL OF HARDWARE DUE TO FAILURE AND PSEUDOARTHROSIS L5-S1 -EXPLORATION OF FUSION L5-S1 WITH PSEUDOARTHROSIS -USE OF Spockly NAVIGATION FOR SCREW PLACEMENT USE OF IONM ALL SCREWS TESTING >12 mA MOD 22: THIS CASE TOOK 75% LONGER THAN EXPECTED DUE TO PTS BMI >30; COMPLEXITY OF REVISION CASE; SEVERITY OF PATHOLOGY. Implants: [place] moderate AL 12 mm x 20 5 mm x 33 mm x 15 degrees ALIF cage height 12 mm [place] rods and screws MagnatOs 7 cc, bio DBM fiber boat small 5 cc, autograft, bone marrow aspirate Anesthesia: COLBY Surgeon: Sae Ramirez Inspector Timers #1: Demario Garibay (BILL Goodwin Was present and assisted with all aspects of the case from positioning to dressing placement) Estimated Blood Loss (ml): 300 (Anterior and posterior) IV fluids (ml): 3,600 Urine output (ml): 770 Pathology: none sent Condition: stable Disposition: PACU Indications for Procedure: Papo Blunt is a 39 yo male presenting for evaluation of low back pain, LE paresthesias, continued and progressive LE pain and radiculopathy. It was my pleasure to have seen and examined Papo Blunt. In our visit today we have had a chance to go over subjective complaints, physical examination findings and treatments including the natural course history without intervention and various interventional options. The patients imaging demonstrates the following findings: Severe spondylosis and disc collapse L5-S1 with moderate collapse L4-5 as well. B/L foraminal stenosis at L5-S1 along with central stenosis. There is segmental kyphosis noted at L4-5 due to the collapse as well as L5-S1. No fractures noted. No lesions. On a physical exam, HE demonstrates the following findings: Severe low back pain and debility related to this Continued LE sx with progression at this time DTR all LE Weakness in DF and PF BLE 4/5 I have explained to the patient that as their condition progresses it will cause further neurological deficits and eventual progressive neurological changes. Based on the patients imaging, physical exam, and the rapid progression and disabling nature of their symptoms, at this time I recommend surgery in the form of a: STAGE I: Revision L4-S1 ANTERIOR LUMBAR INTERBODY FUSION; STAGE II: L4-S1 POSTEROLATERAL INSTRUMENTED FUSION. I discussed the risk and benefits of this procedure at length with Papo Blunt The patient agreed to consider pursuing the procedure above mentioned. Prior to surgery, they should follow up with her PCP (Cardio, ID, IM etc) for clearance. Questions were invited and answered, and the patient wishes to proceed as outlined below. Currently, I am recommending: * STAGE I: Revision L4-S1 ANTERIOR LUMBAR INTERBODY FUSION; STAGE II: L4-S1 POSTEROLATERAL INSTRUMENTED FUSION Description of Procedure: STAGE I: The patient was seen and examined in the preoperative area. All preoperative protocols were followed. Informed consent was obtained, risks and benefits of the procedure were discussed at length. Risks including bleeding infection damage to the surrounding tissue and risk of reoperation were discussed with the patient. Risk of anesthesia up to and including was discussed with the patient. These are outlined in the risk review. They were willing to accept these risks and all the risks of surgery. The patient was given a weight-based dose of antibiotics in the form of 2 g Ancef. The patient was seen and evaluated by the anesthesia team who deemed them fit for surgery. The site was marked, the patient was willing to proceed with the procedure. The patient was transferred to the operative suite by the Department of anesthesia. They were then drifted off to sleep by the department anesthesia and GETA was performed. The patient tolerated this well. Cano catheter was placed by nursing staff, a-traumatically. Once confirmation of lines and ventilation the patient was transferred to a prone Aris table very carefully. All bony prominences including wrists, elbows, axilla, chest, hips, and thighs, and feet were padded very well. Special attention was paid to the genitalia, and these were padded accordingly. SCDs were placed on bilateral lower extremities and were connected. Arms were well padded and placed on arm boards up and out in the 90/90 position. Once in position, again we confirmed good ventilation capabilities and that lines were running appropriately. The patients Lumbar spine was then exposed. 1010s were placed outlining the incision site. Standard alcohol was used to clean the incision site and allowed to dry. C-arm was used to needle localize the pedicles at L4-S1 and bio-elana the patient and confirm level for incision which was marked with a skin marker. Operative briefing was performed with all teams and everyone in agreement to proceed. The patient was then prepped and draped in a normal sterile fashion. Timeout was then performed, and all parties agreed with the procedure to be performed. Longitudinal midline skin incision was made and anterior retroperitoneal exposure to the lumbar spine was performed by Dr. Haider. Retractors were placed and once in position we confirmed the levels with the AP and lateral fluoroscopic image with a marker. Once confirmed anterior interbody fusion discectomy was performed. Annulotomy knife was used to remove the annulus anteriorly as well as AL L. We were then able to use an osteotome for osteotomy in this region which would help to loosen the cage. The cage was already fairly loose however posteriorly we wanted to make sure that there was no attachment to the bone and dural areas. Once this was confirmed a lamina head custodian was placed which allowed for distraction of the levels the cage was then carefully and fairly easily removed without bony loss. Once this was accomplished we inspected the area there was no excessive bleeding or CSF from the area. We then cleaned the endplates and performed further discectomy ensuring that there were good bleeding endplates devoid of cartilage. We then under lateral fluoroscopic imaging sized an ALIF cage until an appropriate size lordosis and mandaen of alignment was achieved. Once this was achieved we downsized to a rasp and the rasp was placed under lateral fluoroscopic imaging as well. Confirmation AP shot was taken to ensure midline and we were. We then turned our attention back to cage placement the cage was packed with graft MagnatOs and was then placed the cage was then impacted into position under lateral fluoroscopic guidance and once in optimal position was tested and was stable. Product Safety Associate was removed we then used the awl to drill 4 screws 2 screws were placed inferiorly into S1 and 1 screw superiorly into L5 the screws had good purchase all locking mechanisms were then set and the cage was tested again and it was stable. Wound was then copiously irrigated with normal sterile saline. AP and lateral imaging confirmed good placement of cage mandaen of alignment. We then placed Gelfoam powder and Surgicel deep within the wound inspection of the wound showed no excess bleeding meticulous hemostasis performed throughout. Retractors were then removed and the wound was closed by vascular surgery. The wound was then cleaned and dressed sterilely with an Optifoam dressing. The patient remained stable throughout this procedure and discussion with anesthesia we elected to proceed with the second stage of the procedure. STAGE II: The patient was then transferred to their hospital bed atraumatically. Bed frames were then exchanged for a prone Spine top Trios table. Once this was in place the patient was repositioned prone on the Trios spine top table. Arms were placed in the open position 9090 and were well-padded. Special attention was placed on padding the bony prominences including the wrist hands elbows axilla shoulders chest hips thighs and genitalia. All of these were well-padded and positioned well. Once in position we confirmed ventilation as well head was placed in a head custodian eyes were without pressure. Once this was accomplished the patient's lumbar spine was exposed and 10 tendons were placed around the surgical area. We then bilateral marked the patient using fluoroscopic imaging to confirm levels for incision. Skin marker was used to elana the skin. Preoperative briefing was performed followed by a preoperative timeout all parties in agreement with the procedure to be performed. Midline skin incision was made over the previously bio-marked area and dissection taken down over the SP of L3-S1. L4-S1 w and all bony prominences including to the wrist hands elbows axilla chest thighs and genitalia. Everything was padded accordingly.as taken out over facet joints and TPs and a penfield 4 used to elana the L4 pedicle. Lateral image used to confirm levels. Once confirmed, screws were proceeded to be placed b/l at pedicles from L4-S1 using Q Interactive Navigation. An SP clamp was used, 3D C arm spin obtained and confirmed to be accurate. Once this was confirmed screws were placed using a navigated bry, navigated awl-tap and navigated warehouse driver. Once screws were placed they were confirmed to be in good position using AP and Lateral fluoroscopy. The wound was then irrigated. Screws were tested and all tested above 12 mA. We then proceeded to decompression and cage placement. Rods were then sized and selected and placed into S1 screws b/l. Set screws locked these in place and then sequentially reduced into L4 and L5 b/l for alignment mandaen. This was accomplished. Set screws were then all placed and final tightened. A cross link was selected and placed and final tightened. TPs were then decorticated with a high speed bry. The wound was irrigated with 3L Ancef irrigation, 3L gentamicin irrigation and 3L NSS. Surgery was placed over the dura. Autograft and MagnatOs then placed in the posterolateral gutters and impacted into place. Deep drain placed and secured to the skin. Final images confirmed good placement of hardware and good reduction of listhesis as well as mandaen of height and lordosis. Fascia was then closed with #1 PDS. Deep subq closed with 0 Vicryl. Superficial subq closed with 2-0 Vicryl and skin with silvina. Wound edges approximated very well. Wound was then cleaned with alcohol and dried. Wounds dressed with Optifoam dressings. The patient was then transferred off the table back to their hospital bed a- traumatically. They were extubated by the department of anesthesia. They were then transferred to PACU in stable condition having tolerated the procedure with no complications.
--- NOTE | 2024-09-14 16:57 | P.OP ---
Description of Procedure: Date: 09/14/2024 Preoperative diagnosis: Pseudoarthrosis L5-S1 with spondylolysis, Grade I spondylolisthesis L5-S1, Right lower extremity radiculopathy, Low back pain Postoperative diagnosis: Same Procedure: Anterior retroperitoneal exposure of L5-S1 L5 Anterior vertebral body osteotomy for removal of cage and decompression of lumbar spine L5-S1 Anterior lumbar interbody fusion revision Insertion of biomechanical device cage Removal of old interbody cage L5-S1 due to pseudoarthrosis and failure of hardware Anterior instrumentation L5-S1 Surgeon: Rodri Haider DO Co-surgeon: Sae Ramirez DO Anesthesia: General endotracheal Complications: None Estimated blood loss: Minimal Indication for procedure: The patient is a 39-year-old gentleman with a longstanding history of back pain and leg pain. Patient was evaluated by Dr. Ramirez and after thorough work-up and imaging he felt the patient required a n anterior fusion of the L5-S1 disc space with removal of previous cage and revision of posterior hardware. Patient was seen preoperatively in my office and extensive discussion was had about risks and benefits of the procedure. Risks discussed included bleeding, infection, possible bowel, bladder, ureteral injuries, possible nerve damage, paresthesias, hernias, lymph leaks, tear or venous thrombosis requiring thrombectomy or bypass, and possibility of retrograde ejaculation were all discussed. Patient understood these risks, alternatives to treat wished to proceed. Operative narrative: Patient was brought to the operating room and placed in a supine position after appropriate anesthetic was performed per the anesthesiologist. IV antibiotics were given prior to incision. Cano catheter was placed. Preoperative localization of the disc space was carried out with fluoroscopy. The abdomen was prepped and draped in the usual sterile fashion. Timeout was performed in normal fashion with all parties in agreement. A midline incision was then created with a 10 blade scalpel and dissection was carried down through the subcutaneous tissue. Left anterior rectus sheath was located and identified and then incised. The left rectus abdominis muscle was then mobilized from the midline laterally. The retroperitoneum was then entered in the left lower quadrant. Peritoneal contents were then swept toward the midline. A Joss retractor was then placed in the peritoneum was retracted medially. Bipolar cautery was then utilized to free up the soft tissues between the iliac veins. The iliac artery, vein were located and spared. Meticulous dissection was carried around this area and the left iliac vein was retracted laterally to allow for better visualization of the L5-S1 space. Middle sacral vessels were then located and dissected free and were clipped and ligated. Good visualization of the L5-S1 disc space was viewed and confirmed with fluoroscopy. A pin was placed within the disc space which was confirmed on fluoroscopy and shown to be in good position. At that time Dr. Ramirez performed a discectomy, previous cage removal and cage placement at the L5-S1 disc level. Please see his dictation for further details. Once completed the area was inspected for hemostasis. Hemostasis was ensured. There was no active bleeding or any signs of injury. All retractors were then removed and the incision was closed. The anterior rectus sheath was reapproximated with 2-0 PDS suture in a running fashion. Subcutaneous tissue was reapproximated with 3-0 Vicryl. Skin was closed with 4-0 Monocryl. All sponges and instruments were accounted for. I was present in the room for the entire procedure and assisted Dr. Ramirez with his portion of the procedure that included vessel and soft tissue retraction to facilitate implant placement.
[2024-09-14] MEDS: HYDROmorphone 0.5 MG/0.5 ML SYRINGE IVP PRN (17:20)
--- NOTE | 2024-09-14 17:59 | FL ---
EXAMINATION TYPE: FL guidance operating room, XR lumbar spine 2 or 3V DATE OF EXAM: 09/14/2024 4:57 PM COMPARISON: Pre Operative Images if available both CT/MRI or plain film CLINICAL INDICATION: Male, 39 years old with history of LUMBAR FUSION; TECHNIQUE: FL guidance operating room, XR lumbar spine 2 or 3V, multiple fluoroscopic images provided for procedure. Total fluoroscopy time: 92 seconds Total submitted images to PACS: 5 DAP: 44.02 mGym2 Gycm2 uGym2 cGycm2 or equivalent. FINDINGS: Fluoroscopic images during internal fixation/arthroplasty demonstrate fixation hardware in appropriat e position. Hardware appears intact. No immediate complication identified. IMPRESSION: 1. No evidence for intraoperative complication. 2. Please see the operative/procedural note for further details. [facility], , 09/14/2024 5:57 PM
[2024-09-14] MEDS: GABAPENTIN 300 MG CAP PO SCH (18:26)
[2024-09-14] MEDS: ACETAMINOPHEN TAB 325 MG TAB PO SCH (18:59)
[2024-09-14] MEDS: HYDROmorphone 1 MG/ML 1 ML SYRINGE IVP PRN (21:56)
--- NOTE | 2024-09-14 23:43 | P.CONS ---
History of Present Illness - Reason for Consult Consult date: 09/14/24 Medical management - History of Present Illness Patient is a 39-year-old male that is status post L5 anterior vertebral body osteotomy and L5-S1 anterior lumbar interbody fusion revision for L5-S1 spondylosis and spondylolisthesis. He reported no new complaints at this time. Pain is tolerated with medications. He he has not had a bowel movement, has not passed gas, and has not ambulated yet he is currently on a Cano catheter. He denies shortness of breath, chest pain, abdominal pain, leg pain, weakness, dizziness, loss of consciousness, fever, chills, nausea or vomiting. Review of systems: Pertinent positives and negatives as discussed in HPI, a complete review of systems was performed and all other systems are negative. Physical examination: Vital signs reviewed General: non toxic, no distress, appears at stated age Derm: no unusual rashes/lesions, warm, dressing on medial lower abdomen and lower back that are dry with no surrounding erythema Head: atraumatic, normocephalic, symmetric Eyes: EOMI, anicteric sclera, pupils equal round reactive to light ENT: Nose and ears atraumatic Neck: No cervical lymphadenopathy, trachea midline, supple Mouth: no lip lesion, mucus membranes moist Cardiovascular: S1S2 reg, no murmur Lungs: CTA bilateral, no rhonchi, no rales, no accessory muscle use Abdominal: soft, nondistended, nontender to palpation, no guarding Ext: muscle strength 5 out of 5 in all 4 extremities grossly, no gross muscle atrophy, no contractures, positive dorsalis pedis pulse bilateral, no edema Neuro: CN II-XI grossly intact, no gross focal neuro deficits Psych: Alert and oriented x3, appropriate affect and mood Assessment/Plan: #. Hyperglycemia, no history of diabetes -A1c and BMP at a.m. #. Chronic conditions: Hyperlipidemia, hypertension, depression, GERD, hypothyroidism -Resume home medications #. Status post L5 anterior vertebral body osteotomy and L5-S1 anterior lumbar interbody fusion revision DVT prophylaxis and pain control be managed by primary surgical team We appreciate being part of this patient's care. Thank you for this consult. Past Medical History Past Medical History: GERD/Reflux, Hyperlipidemia, Osteoarthritis (OA), Thyroid Disorder Additional Past Medical History / Comment(s): Back pain, nerve pain, migraines, seasonal allergies, hypothyroidism History of Any Multi-Drug Resistant Organisms: None Reported Past Surgical History: Back Surgery, Cholecystectomy Additional Past Surgical History / Comment(s): spine fusion, lipoma removal x 2, oral surgery, enlarged lymph node removed, Lt. knee arthroscopy Past Anesthesia/Blood Transfusion Reactions: No Reported Reaction Past Psychological History: No Psychological Hx Reported Smoking Status: Current every day smoker Past Alcohol Use History: Rare Additional Past Alcohol Use History / Comment(s): Quit smoking 05/2024, smoked 3/4 ppd x 20 yrs. 1-2 drinks/year Past Drug Use History: None Reported - Past Family History Mother Family Medical History: Hyperlipidemia Father Family Medical History: Cancer Additional Family Medical History / Comment(s): skin cancer Medications and Allergies Home Medications Medication Instructions Recorded Confirmed Type Cyclobenzaprine [Flexeril] 10 mg PO TID PRN 01/16/19 09/14/24 History Propranolol HCl [Inderal Xl] 120 mg PO HS 01/16/19 09/14/24 History gemfibroziL [Lopid] 600 mg PO AC-BID 01/16/19 09/14/24 History HYDROcodone/APAP 10-325MG [[place] 1 tab PO Q6HR PRN 09/04/22 09/14/24 History 10-325] Levothyroxine Sodium [Synthroid] 50 mcg PO DAILY 04/17/24 09/14/24 History Loratadine [Claritin] 10 mg PO HS 04/17/24 09/14/24 History Cholecalciferol [Vitamin D3 (25 50 mcg PO DAILY 07/01/24 09/14/24 History Mcg = 1000 Iu)] Multivitamin [Multivitamins Adult 1 tab PO DAILY 09/08/24 09/14/24 History Gummies] [place]-3/Dha/Epa/Fish Oil [Fish Oil 1 tab PO BID 09/08/24 09/14/24 History 1,000 mg Softgel] Venlafaxine HCl [Effexor] 37.5 mg PO BID 09/08/24 09/14/24 History Allergies Allergy/AdvReac Type Severity Reaction Status Date / Time morphine Allergy Rash/Hives Verified 09/14/24 07:05 ibuprofen [From Motrin] AdvReac cannot Verified 09/14/24 07:05 take due to hx of ulcers Physical Exam Vitals: Vital Signs Temp Pulse Resp BP Pulse Ox 09/14/24 18:43 97.6 F 76 16 119/76 96 09/14/24 18:07 82 16 119/74 97 09/14/24 17:55 78 16 122/72 97 09/14/24 17:40 76 16 118/68 94 L 09/14/24 17:25 79 16 118/67 95 09/14/24 17:10 82 16 116/62 97 09/14/24 16:55 84 16 127/57 98 09/14/24 16:40 97.0 F L 73 16 114/62 98 09/14/24 08:03 58 L 16 122/77 95 09/14/24 07:09 97.2 F L 64 18 130/68 95 Intake and Output 09/14/24 09/14/24 09/15/24 14:59 22:59 06:59 Intake Total 4052 200 Output Total 1590 Balance 4052 -1390 Intake: IV 4052 200 Output: Drainage 70 Lower Back 70 Urine 1220 Estimated Blood Loss 300 Other: Voiding Method Indwelling Catheter Weight 109.5 kg 109.5 kg Results CBC & Chem 7: 09/14/24 07:27 09/14/24 07:27 Labs: Abnormal Lab Results - Last 24 Hours (Table) 09/14/24 Range/Units 07:27 Glucose 132 H (74-99) mg/dL Assessment and Plan Assessment: I have seen and evaluated the patient today. I Discussed the case with the resident and agree with the resident's findings I edited the assessment and plan as necessary as documented in the resident's note.
[2024-09-15] MEDS: HYDROmorphone 0.5 MG/0.5 ML SYRINGE IVP PRN (01:23)
[2024-09-15] MEDS: oxyCODONE-APAP 7.5-325MG 1 EACH TAB PO PRN (02:23)
--- NOTE | 2024-09-15 07:59 | CT ---
EXAMINATION TYPE: CT lumbar spine wo con CT DLP: 996 mGycm, Automated exposure control for dose reduction was used. DATE OF EXAM: 09/15/2024 2:08 AM COMPARISON: 01/09/2024. CLINICAL INDICATION: Male, 39 years old with history of s/p L5-S1 ALIF L4-S1 revision decompr fusio n; PHH, s/p L5-S1 ALIF & L4-S1 revision decompr fusion TECHNIQUE: Multiple axial images were obtained from the midportion of T11 through the sacroiliac viraj nts. Soft tissue and bone windows in coronal and sagittal planes were obtained and reviewed. Contrast used: mL of , (None, if empty). Oral contrast used: (None, if empty). FINDINGS: Postsurgical changes to the lumbar spine with fixation hardware at L4, L5 and S1. Discectomy at L5-S1 . Hardware limits evaluation at these levels. Hardware appears intact. No evidence of fracture. Postsurgical changes in the soft tissues with foci of gas present. Drainage catheter with tubing in t he surgical bed. Posterior back skin silvina are present. IMPRESSION: Postsurgical changes without evidence of immediate post operative complication. [facility], , 09/15/2024 7:56 AM
[2024-09-15] MEDS: LEVOTHYROXINE 50 MCG TAB PO SCH (08:28)
[2024-09-15] MEDS: FENOFIBRATE 160 MG TAB PO SCH (08:28)
[2024-09-15] MEDS: SENNOSIDES-DOCUSATE SODIUM 1 EACH TAB PO SCH (08:28)
[2024-09-15] MEDS: VENLAFAXINE HCL 37.5 MG TAB PO SCH (08:28)
[2024-09-15] MEDS: NON FORMULARY DRUG (Omega-3/Dha/Epa/Fish Oil [Fish Oil 1,000 Mg Softgel] 1 EACH Capsule) PO SCH (08:29)
[2024-09-15 09:25] LABS: Basophils # (A) 0.03 X 10*3/uL (0.00-0.10); Basophils % (A) 0.2 %; Eosinophils # (A) 0.01 X 10*3/uL (0.04-0.35); Eosinophils % (A) 0.1 %; HCT 38.5 % (39.6-50.0); HGB 13.5 g/dL (13.0-17.0); Lymphocytes # (A) 1.98 X 10*3/uL (0.90-5.00); Lymphocytes % (A) 11.9 %; MCH 29.8 pg (27.0-32.0); MCHC 35.1 g/dL (32.0-37.0); Mean Platelet Volume 9.9 FL (9.5-12.2); Monocytes # (A) 1.49 X 10*3/uL (0.20-1.00); NRBC Per 100 WBC 0 X 10*3/uL (0.00-0.01); Neutrophils # (A) 13.01 X 10*3/uL (1.80-7.70); Neutrophils % (A) 78.3 %; Platelet Count 312 X 10*3/uL (140-440); RBC 4.53 X 10*6/uL (4.40-5.60); RDW 12.4 % (11.5-14.5); WBC 16.61 X 10*3/uL (4.50-10.00)
[2024-09-15 09:26] LABS: Blood Urea Nitrogen 13.1 mg/dL (9.0-27.0); Calcium 9.1 mg/dL (8.7-10.3); Carbon Dioxide 26.1 mmol/L (21.6-31.8); Chloride 97 mmol/L (96-109); Glucose 135 mg/dL (70-110); Potassium 3.8 mmol/L (3.5-5.5); Sodium 136 mmol/L (135-145)
--- NOTE | 2024-09-15 10:28 | P.PN ---
Subjective Progress Note Date: 09/15/24 Principal diagnosis: L5-S1 spondylolysis, spondylolisthesis listhesis, right lower extremity radiculopathy, lower back pain Patient is seen and examined today as a follow-up. He is postop day #1 for anterior retroperitoneal exposure L5-S1, L5-S1 interbody fusion revision. He s tates overall he is doing well. He has pain that is more surgical in nature, well-controlled. States he is passing gas. Cano catheter is in place with adequate urine output. He has been afebrile. Denies any bleeding from the surgical site. No shortness of breath or chest pain. Objective - Vital Signs Vital signs: Vital Signs Temp 98.5 F 09/15/24 07:48 Pulse 86 09/15/24 07:48 Resp 17 09/15/24 07:48 BP 136/83 09/15/24 07:48 Pulse Ox 98 09/15/24 07:48 FiO2 Intake & Output 09/14/24 09/15/24 09/15/24 18:59 06:59 18:59 Intake Total 4252 Output Total 1520 1670 Balance 2732 -1670 Weight 109.5 kg Intake: IV 4252 Output: Drainage 70 Lower Back 70 Urine 1220 1600 Estimated Blood Loss 300 Other: Voiding Method Indwelling Catheter - Exam General appearance: The patient is alert, oriented, appears in no acute distress. HET: Head is normocephalic and atraumatic. Neck: Supple. Heart: Regular. Lungs: Equal expansion, normal respiratory effort. Abdomen: Soft, nontender, nondistended. Incision with dressing in place, clean dry and intact. Normal active bowel sounds all 4 quadrant. Extremities: Normal skin color and turgor. Palpable DP pulses bilaterally. Neurological: No focal deficits. Sensorimotor intact. - Labs CBC & Chem 7: 09/15/24 02:29 09/15/24 02:29 Assessment and Plan Assessment: 1. Postop day #1 for anterior retroperitoneal exposure of L5-S1, L5 Anterior vertebral body osteotomy for removal of cage and decompression of lumbar spine,L5-S1 Anterior lumbar interbody fusion revision, Insertion of biomechanical device cage, Removal of old interbody cage L5-S1 due to pseudoarthrosis and failure of hardware and Anterior instrumentation L5-S1 2. Pseudoarthrosis L5-S1 with spondylolysis, Grade I spondylolisthesis L5-S1, 3. Right lower extremity radiculopathy, Low back pain Plan: Continue with recommendations from orthopedic surgeon. Continue with incentive spirometer. Activity per recommendations from orthopedic surgeon. There is no further indication for any vascular surgical intervention. He is to follow-up with Dr. Beyer send as scheduled. We will sign off at this time. The impression and plan of care has been dictated as directed. I performed a history and examination of this patient, discussed the same with the dictator. I agree with the dictator's note ,documented as a scribe. Any additional findings or plans will be noted.
[2024-09-15] MEDS ORDERED: DEXTROSE 50% SYRINGE 50 ML IVP PRN ×2 (11:37)
--- NOTE | 2024-09-15 11:41 | P.PN ---
Subjective Progress Note Date: 09/15/24 Subjective: Seen and examined at bedside. No acute events overnight. Pertinent positives and negatives as discussed above, a complete review of systems was performed and all other systems are negative. Vitals Signs Reviewed. General: Nontoxic, no distress, appears at stated age Derm: Warm, dry, back dressing not observed Head: Atraumatic, normocephalic, symmetric Eyes: EOMI, no lid lag, anicteric sclera Mouth: No lip lesion, mucus membranes moist Cardiovascular: S1S2 reg, no murmur Lungs: CTA bilateral, no rhonchi, no rales, no accessory muscle use Abdominal: Soft, nontender to palpation, no guarding, no appreciable organomegaly Ext: No gross muscle atrophy, no edema, no contractures Neuro: CN II-XI grossly intact, no focal neuro deficits Psych: Alert, oriented, appropriate affect Data Reviewed Today: Pertinent Labs: WBC 16.61, hemoglobin 13.5, sodium 136, potassium 3.8, cre atinine 1, A1c 6.5 Imaging: No new imaging Assessment and Plan: Type 2 diabetes, newly diagnosed, A1c 6.5 -Started on sliding scale insulin, monitor for hypoglycemia -Likely will benefit from metformin at the time of discharge Dyslipidemia Continue fenofibrate 160 twice daily Hypothyroidism -Continue Synthroid 50 mcg daily Anxiety/depression Hypertension -Continue venlafaxine 37.5 twice daily, propranolol 140 nightly Status post L5 anterior vertebral body osteotomy and L5-S1 anterior lumbar interbody fusion revision Leukocytosis, anticipated outcome of surgery -On oral Tylenol, gabapentin 300 3 times daily, oral [place] as needed, IV Dilaudid as needed, monitor for sedation -Senna 2 daily for bowel regimen -DVT prophylaxis per orthopedic surgery Thank you for allowing us to participate in the care of this pleasant patient. Do not hesitate to contact us with questions. Someone can be reached from the [facility] hospitalist group all hours of the day at [phone] or via perfect serve. Objective - Vital Signs Vital signs: Vital Signs Temp 98.5 F 09/15/24 07:48 Pulse 86 09/15/24 07:48 Resp 17 09/15/24 07:48 BP 136/83 09/15/24 07:48 Pulse Ox 97 09/15/24 09:06 FiO2 Intake & Output 09/14/24 09/15/24 09/15/24 18:59 06:59 18:59 Intake Total 4252 Output Total 1520 1670 3500 Balance 2732 -1670 -3500 Weight 109.5 kg Intake: IV 4252 Output: Drainage 70 Lower Back 70 Urine 1220 1600 3500 Estimated Blood Loss 300 Other: Voiding Method Indwelling Catheter Indwelling Catheter - Labs CBC & Chem 7: 09/15/24 02:29 09/15/24 02:29 Labs: Abnormal Lab Results - Last 24 Hours (Table) 09/15/24 09/15/24 09/15/24 Range/Units 02:29 02:29 02:29 WBC 16.61 H (4.50-10.00) X 10*3/uL Hct 38.5 L (39.6-50.0) % Immature Gran # 0.09 H (0.00-0.04) X 10*3/uL Neutrophils # 13.01 H (1.80-7.70) X 10*3/uL Monocytes # 1.49 H (0.20-1.00) X 10*3/uL Eosinophils # 0.01 L (0.04-0.35) X 10*3/uL Anion Gap 12.90 H (4.00-12.00) mmol/L Glucose 135 H (70-110) mg/dL Hemoglobin A1c 6.5 H (<=6.0) %
[2024-09-15 11:45] LABS: Glucose,Whole Blood 147 mg/dL (70-110)
[2024-09-15] MEDS: SUMAtriptan succinate 25 MG TAB PO PRN (11:59)
[2024-09-15] MEDS: INSULIN ASPART (NovoLOG) 100 UNIT/ML VIAL SQ SCH (11:59)
[2024-09-15] MEDS: CYCLOBENZAPRINE 10 MG TAB PO PRN (15:38)
[2024-09-15 16:23] LABS: Glucose,Whole Blood 194 mg/dL (70-110)
[2024-09-15] MEDS: PROPRANOLOL LA 60 MG CAP.SA.24H PO SCH (22:42)
[2024-09-16 08:49] LABS: HCT 38.3 % (39.6-50.0); HGB 13.1 g/dL (13.0-17.0); MCH 29.3 pg (27.0-32.0); MCHC 34.2 g/dL (32.0-37.0); MCV 85.7 FL (80.0-97.0); Mean Platelet Volume 9.8 FL (9.5-12.2); NRBC Per 100 WBC 0 X 10*3/uL (0.00-0.01); Platelet Count 296 X 10*3/uL (140-440); RBC 4.47 X 10*6/uL (4.40-5.60); RDW 12.4 % (11.5-14.5); WBC 16.55 X 10*3/uL (4.50-10.00)
--- NOTE | 2024-09-16 09:28 | P.PN ---
Subjective Progress Note Date: 09/16/24 Principal diagnosis: 1. L4-S1 spondylosis with stenosis 2. Lumbar spondylosis with radiculopathy 3. LE weakness 4. LE paresthesias 5. Low back pain with pseudoarthrosis L5-S1 Patient seen and examined this morning. Patient had been up to restroom and tolerating activity well. He does report that he is passing gas, but no BM at this time. He states he notified RN to provide him with stool softeners. Surgical dressings to the anterior abdomen and posterior lumbar area, dressings are clean, dry and intact. He states his pain is managed on current regimen. Continue to encourage patient to increase his activity and use of the incentive spirometer at least 10x/hr while awake. Patient is cleared from an Orthopedic standpoint for discharge when medically stable. Objective - Vital Signs Vital signs: Vital Signs Temp 98.1 F 09/16/24 07:30 Pulse 87 09/16/24 07:30 Resp 16 09/16/24 07:30 BP 125/84 09/16/24 07:30 Pulse Ox 96 09/16/24 07:30 FiO2 Intake & Output 09/15/24 09/16/24 09/16/24 18:59 06:59 18:59 Output Total 3500 160 Balance -3500 -160 Output: Drainage 160 Lower Back 160 Urine 3500 Other: Voiding Method Indwelling Catheter Toilet - Exam Physical Examination General: The patient is awake and alert, in no acute distress Skin: Skin is warm and dry with no obvious rashes or lesions. Surgical incisions to the anterior lower abdomen and posterior lumbar spine, dressings are clean dry and intact. Eye: Pupils are equal, round and reactive to light, extra-ocular movements are intact; there is normal conjunctiva bilaterally. Neck: The neck is supple, there is no tenderness and ROM intact. Cardiovascular: There is a regular rate and rhythm. No murmur, rub or gallop is appreciated. Respiratory: Respirations are non-labored, breath sounds are equal. Gastrointestinal: Soft, non-distended, non-tender abdomen. Back: There is no tenderness to palpation in the midline, paralumbar, parathoracic or buttocks region. There is no obvious deformity . Musculoskeletal: ROM limited secondary to pain and stiffness from surgical procedure. Right: Shoulder abduction 5/5, elbow flexors 5/5, wrist dorsiflexors 5/5. finger abductor 5/5, passenger screener 5/5, hip flexor 5/5, knee flexor 5/5, ankle dorsiflexor 5/5, ankle plantarflexion 5/5 and extensor hallucis 5/5. Left: Shoulder abduction 5/5, elbow flexors 5/5, wrist dorsiflexors 5/5. finger abductor 5/5, passenger screener 5/5, hip flexor 5/5, knee flexor 5/5, ankle dorsiflexor 5/5, ankle plantarflexion 5/5 and extensor hallucis 5/5. Neurological: CN 2-12 intact. There are no obvious motor or sensory deficits. Movement and coordination equal and intact. Sensory exam to light touch intact C5-T1 and intact from L2-S1. Reflexes 2/4 in bilateral upper and lower extremities. Negative Hoffmans, babinski, and clonus signs. Psychiatric: Cooperative, appropriate mood & affect, normal judgment. - Labs CBC & Chem 7: 09/16/24 02:39 09/15/24 02:29 Labs: Abnormal Lab Results - Last 24 Hours (Table) 09/15/24 09/15/24 09/15/24 Range/Units 02:29 02:29 02:29 WBC 16.61 H (4.50-10.00) X 10*3/uL Hct 38.5 L (39.6-50.0) % Immature Gran # 0.09 H (0.00-0.04) X 10*3/uL Neutrophils # 13.01 H (1.80-7.70) X 10*3/uL Monocytes # 1.49 H (0.20-1.00) X 10*3/uL Eosinophils # 0.01 L (0.04-0.35) X 10*3/uL Anion Gap 12.90 H (4.00-12.00) mmol/L Glucose 135 H (70-110) mg/dL POC Glucose (mg/dL) (70-110) mg/dL Hemoglobin A1c 6.5 H (<=6.0) % 09/15/24 09/15/24 Range/Units 11:44 16:21 WBC (4.50-10.00) X 10*3/uL Hct (39.6-50.0) % Immature Gran # (0.00-0.04) X 10*3/uL Neutrophils # (1.80-7.70) X 10*3/uL Monocytes # (0.20-1.00) X 10*3/uL Eosinophils # (0.04-0.35) X 10*3/uL Anion Gap (4.00-12.00) mmol/L Glucose (70-110) mg/dL POC Glucose (mg/dL) 147 H 194 H (70-110) mg/dL Hemoglobin A1c (<=6.0) % Assessment and Plan Assessment: Postop day 2: Plan: -Appreciate sales enablement consultant and team management. -Activity: Ambulate QID, OOB all meals, up and about, limit lifting bending twisting to less than 5 lbs. Use walker or cane if needed for stability. -Daily PT/OT, increase ambulation strength and balance. -Brace when up and about, not needed in bed or chair -Pain control: Adequate at this time -Meds: reviewed -GI ppx: senna, Miralax -DVT PPX: Heparin -Hygiene: Maintain dressing clean and dry. Meticulous cleaning after BMs away from the incision site -Encourage IS 10x/hr -Dispo: Anticipate discharge home later today vs tomorrow *I reviewed and discussed this case with my attending Dr. Ramirez, whom has reviewed this chart and films and is in agreement with assessment and plan of care as outlined above. I have personally seen and examined the patient, performed the documentation and the assessment and plan as written. Number of minutes spent on the visit: 20m.
[2024-09-16 10:01] LABS: Basophils # (A) 0.03 X 10*3/uL (0.00-0.10); Basophils % (A) 0.2 %; Eosinophils # (A) 0.08 X 10*3/uL (0.04-0.35); Eosinophils % (A) 0.5 %; Lymphocytes # (A) 2.16 X 10*3/uL (0.90-5.00); Lymphocytes % (A) 13.1 %; Monocytes # (A) 1.91 X 10*3/uL (0.20-1.00); Monocytes % (A) 11.5 %; Neutrophils % (A) 74.3 %; RBC Morphology Normal (Normal)
--- NOTE | 2024-09-16 11:25 | P.PN ---
Subjective Progress Note Date: 09/16/24 Subjective: Seen and examined at bedside. No acute events overnight. Pertinent positives and negatives as discussed above, a complete review of systems was performed and all other systems are negative. Vitals Signs Reviewed. General: Nontoxic, no distress, appears at stated age Derm: Warm, dry, back dressing not observed Head: Atraumatic, normocephalic, symmetric Eyes: EOMI, no lid lag, anicteric sclera Mouth: No lip lesion, mucus membranes moist Cardiovascular: S1S2 reg, no murmur Lungs: CTA bilateral, no rhonchi, no rales, no accessory muscle use Abdominal: Soft, nontender to palpation, no guarding, no appreciable organomegaly Ext: No gross muscle atrophy, no edema, no contractures Neuro: CN II-XI grossly intact, no focal neuro deficits Psych: Alert, oriented, appropriate affect Data Reviewed Today: Pertinent Labs: WBC 16. 5 5, hemoglobin 13.1, blood sugars range between 1 43-1 84 Imaging: No new imaging Assessment and Plan: Type 2 diabetes, newly diagnosed, A1c 6.5 -Continue on sliding scale insulin, monitor for hypoglycemia -Started on metformin 500 daily for discharge -Follow-up with PCP. Dyslipidemia Continue fenofibrate 160 twice daily Hypothyroidism -Continue Synthroid 50 mcg daily Anxiety/depression Hypertension -Continue venlafaxine 37.5 twice daily, propranolol 140 nightly Status post L5 anterior vertebral body osteotomy and L5-S1 anterior lumbar in terbody fusion revision Leukocytosis, anticipated outcome of surgery -On oral Tylenol, gabapentin 300 3 times daily, oral [place] as needed, IV Dilaudid as needed, monitor for sedation -Senna 2 daily for bowel regimen -DVT prophylaxis per orthopedic surgery Patient is medically optimized for discharge. Thank you for allowing us to participate in the care of this pleasant patient. Do not hesitate to contact us with questions. Someone can be reached from the [facility] hospitalist group all hours of the day at [phone] or via perfect serve. Objective - Vital Signs Vital signs: Vital Signs Temp 98.1 F 09/16/24 07:30 Pulse 87 09/16/24 07:30 Resp 16 09/16/24 07:30 BP 125/84 09/16/24 07:30 Pulse Ox 96 09/16/24 07:30 FiO2 Intake & Output 09/15/24 09/16/24 09/16/24 18:59 06:59 18:59 Output Total 3500 160 Balance -3500 -160 Output: Drainage 160 Lower Back 160 Urine 3500 Other: Voiding Method Indwelling Catheter Toilet - Labs CBC & Chem 7: 09/16/24 02:39 09/15/24 02:29 Labs: Abnormal Lab Results - Last 24 Hours (Table) 09/15/24 09/15/24 09/16/24 Range/Units 11:44 16:21 02:39 WBC (4.50-10.00) X 10*3/uL Hct (39.6-50.0) % Immature Gran # (0.00-0.04) X 10*3/uL Neutrophils # (1.80-7.70) X 10*3/uL Monocytes # (0.20-1.00) X 10*3/uL POC Glucose (mg/dL) 147 H 194 H (70-110) mg/dL Hemoglobin A1c 6.6 H (<=6.0) % 09/16/24 Range/Units 02:39 WBC 16.55 H (4.50-10.00) X 10*3/uL Hct 38.3 L (39.6-50.0) % Immature Gran # 0.07 H (0.00-0.04) X 10*3/uL Neutrophils # 12.30 H (1.80-7.70) X 10*3/uL Monocytes # 1.91 H (0.20-1.00) X 10*3/uL POC Glucose (mg/dL) (70-110) mg/dL Hemoglobin A1c (<=6.0) %
[2024-09-16 16:11] LABS: Glucose,Whole Blood 143 mg/dL (70-110)
--- NOTE | 2024-09-16 17:36 | P.PN ---
Subjective Progress Note Date: 09/15/24 Patient seen and examined, he is up and walking. The patient states he is doing very well. Patient states he has been up to bathroom. He states he is having some low back pain, but is much better than before surgery. He states he feels much better than before and feels more stable. Normal post op pain noted. No fuentes. Passing gas no BM yet. Objective - Vital Signs Vital signs: Vital Signs Temp 98.5 F 09/15/24 07:48 Pulse 86 09/15/24 07:48 Resp 17 09/15/24 07:48 BP 136/83 09/15/24 07:48 Pulse Ox 97 09/15/24 09:06 FiO2 Intake & Output 09/14/24 09/15/24 09/15/24 18:59 06:59 18:59 Intake Total 4252 Output Total 1520 1670 3500 Balance 2732 -1670 -3500 Weight 109.5 kg Intake: IV 4252 Output: Drainage 70 Lower Back 70 Urine 1220 1600 3500 Estimated Blood Loss 300 Other: Voiding Method Indwelling Catheter Indwelling Catheter - Exam AOx3, NAD, Well nourished and well hydrated, non-septic appearing, NTTP, abdomen non-descended, incisions clean and dry, 4+ for all major muscle groups in lower extremities, 4 for all major muscle groups in upper extremities, SILT L2-S1 and C5-S2, negative hoffmans, negative babinski, no clonus. respirations normal non labored RRR 2/4 DTR all UE and LE 2/4 distal pulses compartments soft and compressive - Labs CBC & Chem 7: 09/16/24 02:39 09/15/24 02:29 Labs: Abnormal Lab Results - Last 24 Hours (Table) 09/15/24 09/15/24 09/15/24 Range/Units 02:29 02:29 02:29 WBC 16.61 H (4.50-10.00) X 10*3/uL Hct 38.5 L (39.6-50.0) % Immature Gran # 0.09 H (0.00-0.04) X 10*3/uL Neutrophils # 13.01 H (1.80-7.70) X 10*3/uL Monocytes # 1.49 H (0.20-1.00) X 10*3/uL Eosinophils # 0.01 L (0.04-0.35) X 10*3/uL Anion Gap 12.90 H (4.00-12.00) mmol/L Glucose 135 H (70-110) mg/dL POC Glucose (mg/dL) (70-110) mg/dL Hemoglobin A1c 6.5 H (<=6.0) % 09/15/24 Range/Units 11:44 WBC (4.50-10.00) X 10*3/uL Hct (39.6-50.0) % Immature Gran # (0.00-0.04) X 10*3/uL Neutrophils # (1.80-7.70) X 10*3/uL Monocytes # (0.20-1.00) X 10*3/uL Eosinophils # (0.04-0.35) X 10*3/uL Anion Gap (4.00-12.00) mmol/L Glucose (70-110) mg/dL POC Glucose (mg/dL) 147 H (70-110) mg/dL Hemoglobin A1c (<=6.0) % Assessment and Plan Assessment: 39 year old male PO day 1 from 2 stage, same day procedure, stage 1: L5-S1 revision ALIF, stage 2: revision decompression and fusion L4-S1. Plan: -Appreciate environmental consultant and team management. -Activity: Ambulate QID, OOB all meals, up and about, limit lifting bending twisting to less than 5 lbs. Use walker or cane if needed for stability. -Daily PT/OT, increase ambulation strength and balance. -[Brace when up and about, not needed in bed or chair] -Pain control: [Adequate at this time] -Meds: [reviewed] -GI ppx: senna, Miralax -DC fuentes when up and about, bedside commode if needed -DVT PPX: [OK to restart Heparin tonight] -Hygiene: Shower today. Maintain dressing clean and dry. Meticulous cleaning after BMs away from incision site -Drains: [Maintain for now. Record output] -Encourage IS 10x/hr -Dispo: Home with home healthcare 1-2 days
[2024-09-16] MEDS ORDERED: MAGNESIUM HYDROXIDE 2,400 MG/30 ML CUP PO PRN (18:19)
[2024-09-16] MEDS: MAG HYDROX/AL HYDROX/SIMETH 30 ML CUP PO PRN (18:32)
[2024-09-16 19:57] LABS: Glucose,Whole Blood 223 mg/dL (70-110)
[2024-09-16] MEDS: HYDROcodone/APAP 10-325MG 1 EACH TAB PO PRN (20:41)
[2024-09-17] MEDS: BENZOCAINE/MENTHOL LOZENG 1 EACH LOZENGE MUCOUS MEM PRN (01:07)
[2024-09-17] MEDS: HYDROmorphone 0.5 MG/0.5 ML SYRINGE IVP STA (01:08)
[2024-09-17 06:11] LABS: Glucose,Whole Blood 190 mg/dL (70-110)
--- NOTE | 2024-09-17 08:07 | P.PN ---
Subjective Progress Note Date: 09/17/24 Principal diagnosis: 1. L4-S1 spondylosis with stenosis 2. Lumbar spondylosis with radiculopathy 3. LE weakness 4. LE paresthesias 5. Low back pain with pseudoarthrosis L5-S1 Patient seen and examined this morning. Patient is resting comfortably in bed. He is able to reposition himself independently. He does report that he is passing gas, but no BM at this time. Surgical dressings to the anterior abdomen is CDI. Surgical incision to the posterior lumbar, edges are well approximated with silvina intact. Hemovac drain has been removed. New dressing applied. He states his pain is managed on current regimen. Continue to encourage patient to increase his activity and use of the incentive spirometer at least 10x/hr while awake. Patient is cleared for discharge at this time. Objective - Vital Signs Vital signs: Vital Signs Temp 98.1 F 09/17/24 01:55 Pulse 85 09/17/24 01:55 Resp 14 09/17/24 01:55 BP 125/77 09/17/24 01:55 Pulse Ox 94 L 09/17/24 01:55 FiO2 Intake & Output 09/16/24 09/16/24 09/17/24 06:59 18:59 06:59 Output Total 160 100 Balance -160 -100 Output: Drainage 160 100 Lower Back 160 100 Other: Voiding Method Toilet # Voids 5 - Exam Physical Examination General: The patient is awake and alert, in no acute distress Skin: Skin is warm and dry with no obvious rashes or lesions. Surgical incisions to the anterior lower abdomen and posterior lumbar spine, dressings are clean dry and intact. Eye: Pupils are equal, round and reactive to light, extra-ocular movements are intact; there is normal conjunctiva bilaterally. Neck: The neck is supple, there is no tenderness and ROM intact. Cardiovascular: There is a regular rate and rhythm. No murmur, rub or gallop is appreciated. Respiratory: Respirations are non-labored, breath sounds are equal. Gastrointestinal: Soft, non-distended, non-tender abdomen. Back: There is no tenderness to palpation in the midline, paralumbar, parathoracic or buttocks region. There is no obvious deformity . Musculoskeletal: ROM limited secondary to pain and stiffness from surgical procedure. Right: Shoulder abduction 5/5, elbow flexors 5/5, wrist dorsiflexors 5/5. finger abductor 5/5, tower crane operator 5/5, hip flexor 5/5, knee flexor 5/5, ankle dorsiflexor 5/5, ankle plantarflexion 5/5 and extensor hallucis 5/5. Left: Shoulder abduction 5/5, elbow flexors 5/5, wrist dorsiflexors 5/5. finger abductor 5/5, tower crane operator 5/5, hip flexor 5/5, knee flexor 5/5, ankle dorsiflexor 5/5, ankle plantarflexion 5/5 and extensor hallucis 5/5. Neurological: CN 2-12 intact. There are no obvious motor or sensory deficits. Movement and coordination equal and intact. Sensory exam to light touch intact C5-T1 and intact from L2-S1. Reflexes 2/4 in bilateral upper and lower extremities. Negative Hoffmans, babinski, and clonus signs. Psychiatric: Cooperative, appropriate mood & affect, normal judgment. - Labs CBC & Chem 7: 09/16/24 02:39 09/15/24 02:29 Labs: Abnormal Lab Results - Last 24 Hours (Table) 09/16/24 09/16/24 09/16/24 Range/Units 02:39 02:39 16:09 WBC 16.55 H (4.50-10.00) X 10*3/uL Hct 38.3 L (39.6-50.0) % Immature Gran # 0.07 H (0.00-0.04) X 10*3/uL Neutrophils # 12.30 H (1.80-7.70) X 10*3/uL Monocytes # 1.91 H (0.20-1.00) X 10*3/uL POC Glucose (mg/dL) 143 H (70-110) mg/dL Hemoglobin A1c 6.6 H (<=6.0) % 09/16/24 09/17/24 Range/Units 19:56 06:09 WBC (4.50-10.00) X 10*3/uL Hct (39.6-50.0) % Immature Gran # (0.00-0.04) X 10*3/uL Neutrophils # (1.80-7.70) X 10*3/uL Monocytes # (0.20-1.00) X 10*3/uL POC Glucose (mg/dL) 223 H 190 H (70-110) mg/dL Hemoglobin A1c (<=6.0) % Assessment and Plan Assessment: Postop day 3: L4-S1 anterior interbody fusion with L4-S1 posterior decompression and stabilization Plan: -Appreciate technical healthcare consultant and team management. -Activity: Ambulate QID, OOB all meals, up and about, limit lifting bending twisting to less than 5 lbs. Use walker or cane if needed for stability. -Daily PT/OT, increase ambulation strength and balance. -Brace when up and about, not needed in bed or chair -Pain control: Adequate at this time -Meds: reviewed -GI ppx: senna, Miralax -DVT PPX: Heparin -Hygiene: Maintain dressing clean and dry. Meticulous cleaning after BMs away from the incision site -Encourage IS 10x/hr -Dispo: Discharge home later today *I reviewed and discussed this case with my attending Dr. Ramirez, whom has reviewed this chart and films and is in agreement with assessment and plan of care as outlined above. I have personally seen and examined the patient, performed the documentation and the assessment and plan as written. Number of minutes spent on the visit: 20m.
--- NOTE | 2024-09-17 08:10 | P.DS ---
Providers Date of admission: 09/14/24 06:50 Expected date of discharge: 09/17/24 Attending physician: Sae Ramirez DO Consults: 09/14/24 15:10 Consult Physician Routine Consulting Provider: Ricardo Franco Consult Reason/Comments: medical management s/p L5-S1 ALIF & L4-S1 revision decompr fusion Do you want consulting provider notified?: Yes 09/16/24 07:56 Consult Physician Routine Consulting Provider: Rodri Haider Consult Reason/Comments: Surgical patient Do you want consulting provider notified?: Already Contacted Primary care physician: [facility] [employer] Hospital Course: Hospital Course: The patient was evaluated preoperatively and found to have the diagnosis of L4- S1 spondylosis with stenosis. They underwent appropriate preoperative care and were willing to undergo the intended procedure. They underwent a successful L4- S1 anterior interbody fusion with L4-S1 posterior decompression and stabilization, were recovered appropriately and sent to the floor. While on the floor they worked with physical therapy, occupational therapy and nursing to enhance their recovery experience. Their pain was well controlled through their stay and they were started on appropriate medications, DVT ppx modalities, activity and dietary needs. Daily labs were monitored closely, and transfusions were only used when necessary. Medicine as well as other consulting services have made their input and have helped with our team approach and multidisciplinary care. PT milestones have been met and passed and they have made the recommendation of home for this patient and treating providers agree with this care path. The patient will be discharged home with appropriate medications, instructions and follow-up information and in stable condition. Plan - Discharge Summary Discharge Rx Participant: Yes New Discharge Prescriptions: New metFORMIN HCL ER [Glucophage XR] 500 mg PO DAILY #60 tab cefaDROXiL [Duricef] 500 mg PO Q12HR #10 cap Sennosides/Docusate Sodium [Senna Plus 8.6-50 mg Tablet] 1 each PO DAILY PRN #20 tab PRN Reason: Constipation Cyclobenzaprine [Flexeril] 10 mg PO TID PRN #40 tab PRN Reason: Muscle Spasm Gabapentin 300 mg PO TID #90 cap oxyCODONE-APAP 7.5-325MG [Percocet 7.5-325 mg] 1 tab PO Q4HR PRN #40 tab PRN Reason: Pain polyethylene glycoL 3350 [Miralax] 17 gm PO DAILY #527 gm Continue Propranolol HCl [Inderal Xl] 120 mg PO HS gemfibroziL [Lopid] 600 mg PO AC-BID Levothyroxine Sodium [Synthroid] 50 mcg PO DAILY Loratadine [Claritin] 10 mg PO HS Venlafaxine HCl [Effexor] 37.5 mg PO BID Cholecalciferol [Vitamin D3 (25 Mcg = 1000 Iu)] 50 mcg PO DAILY Metter-3/Dha/Epa/Fish Oil [Fish Oil 1,000 mg Softgel] 1 tab PO BID Multivitamin [Multivitamins Adult Gummies] 1 tab PO DAILY No Action Cyclobenzaprine [Flexeril] 10 mg PO TID PRN PRN Reason: MUSCLE SPASMS HYDROcodone/APAP 10-325MG [[place] 10-325] 1 tab PO Q6HR PRN PRN Reason: Pain Discharge Medication List Cyclobenzaprine [Flexeril] 10 mg PO TID PRN 01/16/19 [History] Propranolol HCl [Inderal Xl] 120 mg PO HS 01/16/19 [History] gemfibroziL [Lopid] 600 mg PO AC-BID 01/16/19 [History] HYDROcodone/APAP 10-325MG [[place] 10-325] 1 tab PO Q6HR PRN 09/04/22 [History] Levothyroxine Sodium [Synthroid] 50 mcg PO DAILY 04/17/24 [History] Loratadine [Claritin] 10 mg PO HS 04/17/24 [History] Cholecalciferol [Vitamin D3 (25 Mcg = 1000 Iu)] 50 mcg PO DAILY 07/01/24 [History] Multivitamin [Multivitamins Adult Gummies] 1 tab PO DAILY 09/08/24 [History] Metter-3/Dha/Epa/Fish Oil [Fish Oil 1,000 mg Softgel] 1 tab PO BID 09/08/24 [History] Venlafaxine HCl [Effexor] 37.5 mg PO BID 09/08/24 [History] Cyclobenzaprine [Flexeril] 10 mg PO TID PRN #40 tab 09/16/24 [Rx] Gabapentin 300 mg PO TID #90 cap 09/16/24 [Rx] Sennosides/Docusate Sodium [Senna Plus 8.6-50 mg Tablet] 1 each PO DAILY PRN #20 tab 09/16/24 [Rx] cefaDROXiL [Duricef] 500 mg PO Q12HR #10 cap 09/16/24 [Rx] metFORMIN HCL ER [Glucophage XR] 500 mg PO DAILY #60 tab 09/16/24 [Rx] oxyCODONE-APAP 7.5-325MG [Percocet 7.5-325 mg] 1 tab PO Q4HR PRN #40 tab 09/16/24 [Rx] polyethylene glycoL 3350 [Miralax] 17 gm PO DAILY #527 gm 09/17/24 [Rx] Follow up Appointment(s)/Referral(s): [facility] [NON-STAFF] - As Needed (walker) [facility] [NON-STAFF] - As Needed Sae Ramirez DO [Doctor of Osteopathic Medicine] - 2 Weeks [facility] [NON-STAFF] - As Needed (LSO back brace) [facility],Clinic [Primary Care Provider] - 1 Week Patient Instructions/Handouts: Type 2 Diabetes in Adults: New Diagnosis (GEN) Activity/Diet/Wound Care/Special Instructions: Please see your PCP. Activity: Ambulate at least 4 times per day, utilize walker as needed. Do not fall. Pain management: Take medications as directed. Utilize ice therapy 20min/hr as needed. No heat. Hygiene: You may remove dressings post-op day 3. Change dressings daily as needed to maintain incisions clean and dry. Incisions may be left open to air if there is no drainage. You may shower, allow soapy water to run over incisions and pat dry. Follow up with Dr. Ramirez in 2 weeks. Please call the office with any questions or concerns , option #3. Discharge Disposition: HOME SELF-CARE
[2024-09-17 08:37] VITALS: BP 112/73; PULSE 78; RESP 16; TEMP 98.4
--- NOTE | 2024-09-17 11:43 | P.PN ---
Subjective Progress Note Date: 09/17/24 Subjective: Seen and examined at bedside. No acute events overnight. Pertinent positives and negatives as discussed above, a complete review of systems was performed and all other systems are negative. Vitals Signs Reviewed. General: Nontoxic, no distress, appears at stated age Derm: Warm, dry, back dressing not observed Head: Atraumatic, normocephalic, symmetric Eyes: EOMI, no lid lag, anicteric sclera Mouth: No lip lesion, mucus membranes moist Cardiovascular: S1S2 reg, no murmur Lungs: CTA bilateral, no rhonchi, no rales, no accessory muscle use Abdominal: Soft, nontender to palpation, no guarding, no appreciable organomegaly Ext: No gross muscle atrophy, no edema, no contractures Neuro: CN II-XI grossly intact, no focal neuro deficits Psych: Alert, oriented, appropriate affect Data Reviewed Today: Pertinent Labs: Blood sugars range between 1 43-2 23 Imaging: No new imaging Assessment and Plan: Type 2 diabetes, newly diagnosed, A1c 6.5 -Continue on sliding scale insulin, monitor for hypoglycemia -Started on metformin 500 daily for discharge -Follow-up with PCP. Dyslipidemia Continue fenofibrate 160 twice daily Hypothyroidism -Continue Synthroid 50 mcg daily Anxiety/depression Hypertension -Continue venlafaxine 37.5 twice daily, propranolol 140 nightly Status post L5 anterior vertebral body osteotomy and L5-S1 anterior lumbar interbody fusion revision Leukocytosis, anticipated outcome of surgery -On oral Tylenol, gabapentin 300 3 times daily, oral [place] as needed, IV Dilaudid as needed, monitor for sedation -Senna 2 daily for bowel regimen -DVT prophylaxis per orthopedic surgery Patient is medically optimized for discharge. Thank you for allowing us to participate in the care of this pleasant patient. Do not hesitate to contact us with questions. Someone can be reached from the [facility] hospitalist group all hours of the day at [phone] or via [employer]. Objective - Vital Signs Vital signs: Vital Signs Temp 98.4 F 09/17/24 07:18 Pulse 78 09/17/24 07:18 Resp 16 09/17/24 09:26 BP 112/73 09/17/24 07:18 Pulse Ox 90 L 09/17/24 07:18 FiO2 Intake & Output 09/16/24 09/17/24 09/17/24 18:59 06:59 18:59 Output Total 100 3 Balance -100 -3 Output: Drainage 100 3 Lower Back 100 3 Other: Voiding Method Toilet # Voids 5 - Labs CBC & Chem 7: 09/16/24 02:39 09/15/24 02:29 Labs: Abnormal Lab Results - Last 24 Hours (Table) 09/16/24 09/16/24 09/17/24 Range/Units 16:09 19:56 06:09 POC Glucose (mg/dL) 143 H 223 H 190 H (70-110) mg/dL
[2024-09-17 11:59] LABS: Glucose,Whole Blood 121 mg/dL (70-110)
== END 2024-09-17 15:46 | disposition home or self-care (01) | DRG 427 ==
LOC: 2ORMAIN 06:50 → 4SSUR 17:43
PROVIDERS: ADMIT Orthopaedic Surgery; ATTEND Orthopaedic Surgery
PROC: 0SG30J1 Fusion of Lumbosacral Joint with Synthetic Substitute, Posterior Approach, Posterior Column, Open Approach (ICD-10-PCS; 2024-09-14)
PROC: 0SP00AZ Removal of Interbody Fusion Device from Lumbar Vertebral Joint, Open Approach (ICD-10-PCS; 2024-09-14)
PROC: 0SB40ZZ Excision of Lumbosacral Disc, Open Approach (ICD-10-PCS; 2024-09-14)
PROC: 8E0WXBZ Computer Assisted Procedure of Trunk Region (ICD-10-PCS; 2024-09-14)
PROC: 0SG00A0 Fusion of Lumbar Vertebral Joint with Interbody Fusion Device, Anterior Approach, Anterior Column, Open Approach (ICD-10-PCS; principal; 2024-09-14 08:40)
PROC: 0SG0071 Fusion of Lumbar Vertebral Joint with Autologous Tissue Substitute, Posterior Approach, Posterior Column, Open Approach (ICD-10-PCS; 2024-09-14 08:40)
PROC: 0SG00J1 Fusion of Lumbar Vertebral Joint with Synthetic Substitute, Posterior Approach, Posterior Column, Open Approach (ICD-10-PCS; 2024-09-14 08:40)
DX: M47.817 Spondylosis without myelopathy or radiculopathy, lumbosacral region (principal); M96.0 Pseudarthrosis after fusion or arthrodesis; E03.9 Hypothyroidism, unspecified; E11.65 Type 2 diabetes mellitus with hyperglycemia; F32.A Depression, unspecified; I10 Essential (primary) hypertension; D72.828 Other elevated white blood cell count; E78.5 Hyperlipidemia, unspecified; M48.061 Spinal stenosis, lumbar region without neurogenic claudication; M47.26 Other spondylosis with radiculopathy, lumbar region; M48.07 Spinal stenosis, lumbosacral region; M43.17 Spondylolisthesis, lumbosacral region; F41.9 Anxiety disorder, unspecified; R53.81 Other malaise; Z87.891 Personal history of nicotine dependence; Z79.890 Hormone replacement therapy; Z79.899 Other long term (current) drug therapy
CPT/HCPCS: 72100; 72131; 80048; 80053; 83036; 85025; 85610; 86850; 86900; 86901; 94760

== ENCOUNTER → 2024-10-16 | Outpatient (CLI) | payer OTHER ==
[2024-10-16 15:19] LABS: Blood Urea Nitrogen 11.7 mg/dL (9.0-27.0); Calcium 9.7 mg/dL (8.7-10.3); Carbon Dioxide 25.1 mmol/L (21.6-31.8); Chloride 99 mmol/L (96-109); Glucose 189 mg/dL (70-110); Potassium 4.1 mmol/L (3.5-5.5); Sodium 137 mmol/L (135-145)
[2024-10-16 15:35] LABS: HCT 37.2 % (39.6-50.0); HGB 12.6 g/dL (13.0-17.0); MCHC 33.9 g/dL (32.0-37.0); MCV 85.7 FL (80.0-97.0); Mean Platelet Volume 9.4 FL (9.5-12.2); NRBC Per 100 WBC 0 X 10*3/uL (0.00-0.01); Platelet Count 307 X 10*3/uL (140-440); RBC 4.34 X 10*6/uL (4.40-5.60); RDW 12.9 % (11.5-14.5); WBC 20.41 X 10*3/uL (4.50-10.00)
[2024-10-16 15:55] LABS: Erythrocyte Sedimentation Rate 52 mm/Hr (0-15)
== END | disposition home or self-care (01) ==
LOC: LABPAT 12:01
PROVIDERS: ATTEND Orthopaedic Surgery
DX: Z01.818 Encounter for other preprocedural examination (principal); M43.26 Fusion of spine, lumbar region; T81.31XA Disruption of external operation (surgical) wound, not elsewhere classified, initial encounter
CPT/HCPCS: 80048; 85027; 85652; 86140

== ENCOUNTER → 2024-10-19 | Outpatient (CLI) | payer OTHER ==
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
== END | disposition home or self-care (01) ==
LOC: RADMRIMAIN 17:39
PROVIDERS: ATTEND Orthopaedic Surgery
DX: M47.816 Spondylosis without myelopathy or radiculopathy, lumbar region (principal); M51.369 Other intervertebral disc degeneration, lumbar region without mention of lumbar back pain or lower extremity pain; T81.31XA Disruption of external operation (surgical) wound, not elsewhere classified, initial encounter
CPT/HCPCS: 72158; A9585

== ENCOUNTER 2025-01-04 23:37 | Emergency (ER) | payer OTHER ==
[2025-01-04 23:43] VITALS: TEMP 98.3
[2025-01-05] MEDS: ACETAMINOPHEN TAB 325 MG TAB PO STA (00:02)
--- NOTE | 2025-01-05 01:04 | ED ---
General Adult HPI - General Chief complaint: Upper Respiratory Infection Stated complaint: cough throat pain Time Seen by Provider: 01/04/25 23:43 Source: patient Mode of arrival: wheelchair Limitations: no limitations - History of Present Illness Initial comments: 39-year-old male presenting with chief complaint of flulike symptoms. Patient is experiencing cough, congestion, sore throat, fatigue, body aches, nausea. Symptoms have been ongoing for 3 days. Patient is also experiencing fever chills. He is having chest soreness with coughing. No abdominal pain or vomiting. Patient is a former smoker. - Related Data Home Medications Medication Instructions Recorded Confirmed Cyclobenzaprine [Flexeril] 10 mg PO TID PRN 01/16/19 09/14/24 Propranolol HCl [Inderal Xl] 120 mg PO HS 01/16/19 09/14/24 gemfibroziL [Lopid] 600 mg PO AC-BID 01/16/19 09/14/24 HYDROcodone/APAP 10-325MG [Gardena 1 tab PO Q6HR PRN 09/04/22 09/14/24 10-325] Levothyroxine Sodium [Synthroid] 50 mcg PO DAILY 04/17/24 09/14/24 Loratadine [Claritin] 10 mg PO HS 04/17/24 09/14/24 Cholecalciferol [Vitamin D3 (25 50 mcg PO DAILY 07/01/24 09/14/24 Mcg = 1000 Iu)] Multivitamin [Multivitamins Adult 1 tab PO DAILY 09/08/24 09/14/24 Gummies] Jones-3/Dha/Epa/Fish Oil [Fish Oil 1 tab PO BID 09/08/24 09/14/24 1,000 mg Softgel] Venlafaxine HCl [Effexor] 37.5 mg PO BID 09/08/24 09/14/24 Previous Rx's Medication Instructions Recorded Cyclobenzaprine [Flexeril] 10 mg PO TID PRN #40 tab 09/16/24 Gabapentin 300 mg PO TID #90 cap 09/16/24 Sennosides/Docusate Sodium [Senna 1 each PO DAILY PRN #20 tab 09/16/24 Plus 8.6-50 mg Tablet] cefaDROXiL [Duricef] 500 mg PO Q12HR #10 cap 10/16/24 metFORMIN HCL ER [Glucophage XR] 500 mg PO DAILY #60 tab 09/16/24 oxyCODONE-APAP 7.5-325MG [Percocet 1 tab PO Q4HR PRN #40 tab 09/16/24 7.5-325 mg] polyethylene glycoL 3350 [Miralax] 17 gm PO DAILY #527 gm 09/17/24 Albuterol Sulfate [Albuterol 1 puff PO Q4-6H PRN #8.5 gm 01/05/25 Sulfate Hfa] Azithromycin [Zithromax Z Pack] 1 tab PO DIRECTED #6 tab 01/05/25 Allergies Allergy/AdvReac Type Severity Reaction Status Date / Time morphine Allergy Rash/Hives Verified 01/04/25 23:42 ibuprofen [From Motrin] AdvReac cannot Verified 01/04/25 23:42 take due to hx of ulcers Review of Systems ROS Statement: Those systems with pertinent positive or pertinent negative responses have been documented in the HPI. ROS Other: All systems not noted in ROS Statement are negative. Past Medical History Past Medical History: GERD/Reflux, Hyperlipidemia, Osteoarthritis (OA), Thyroid Disorder Additional Past Medical History / Comment(s): Back pain, nerve pain, migraines, seasonal allergies, hypothyroidism History of Any Multi-Drug Resistant Organisms: None Reported Past Surgical History: Back Surgery, Cholecystectomy Additional Past Surgical History / Comment(s): spine fusion, lipoma removal x 2, oral surgery, enlarged lymph node removed, Lt. knee arthroscopy Past Anesthesia/Blood Transfusion Reactions: No Reported Reaction Past Psychological History: No Psychological Hx Reported Smoking Status: Former smoker Past Alcohol Use History: Rare Past Drug Use History: None Reported - Past Family History Mother Family Medical History: Hyperlipidemia Father Family Medical History: Cancer Additional Family Medical History / Comment(s): skin cancer General Exam Limitations: no limitations General appearance: alert, in no apparent distress Head exam: Present: atraumatic, normocephalic, normal inspection Eye exam: Present: normal appearance, EOMI ENT exam: Present: normal exam, normal oropharynx, mucous membranes moist Neck exam: Present: normal inspection. Absent: meningismus Respiratory exam: Present: normal lung sounds bilaterally. Absent: respiratory distress, wheezes, rales, rhonchi, stridor Cardiovascular Exam: Present: regular rate, normal rhythm, normal heart sounds. Absent: systolic murmur, diastolic murmur, rubs, gallop, clicks Neurological exam: Present: alert, oriented X3 Psychiatric exam: Present: normal affect, normal mood Skin exam: Present: warm, dry, normal color Course Vital Signs 01/04/25 01/04/25 01/05/25 23:39 23:50 02:19 Temperature 98.3 F Pulse Rate 95 95 Respiratory 20 20 Rate Blood Pressure 151/87 O2 Sat by Pulse 97 Oximetry 01/05/25 01/05/25 02:24 02:25 Temperature Pulse Rate 78 98 Respiratory 22 Rate Blood Pressure 118/87 O2 Sat by Pulse 94 L Oximetry Medical Decision Making - Medical Decision Making Was pt. sent in by a medical professional or institution (, PA, URBAN REDEVELOPMENT SPECIALIST, urgent care, hospital, or half-way...) When possible be specific @ -No Did you speak to anyone other than the patient for history (EMS, parent, family, police, friend...)? What history was obtained from this source @ -No Did you review nursing and triage notes (agree or disagree)? Why? @ -I reviewed and agree with nursing and triage notes Were old charts reviewed (outside hosp., previous admission, EMS record, old EKG, old radiological studies, urgent care reports/EKG's, half-way records)? Report findings @ -No old charts were reviewed Differential Diagnosis (chest pain, altered mental status, abdominal pain women, abdominal pain men, vaginal bleeding, weakness, fever, dyspnea, syncope, headache, dizziness, GI bleed, back pain, seizure, CVA, palpatations, mental h ealth, musculoskeletal)? @ -Differential includes influenza, RSV, COVID, group A strep, pneumonia, bronchitis, COPD, not an all-inclusive list EKG interpreted by me (3pts min.). @ -As above X-rays interpreted by me (1pt min.). @ -Chest x-ray shows left lower lobe pneumonia CT interpreted by me (1pt min.). @ -None done U/S interpreted by me (1pt. min.). @ -None done What testing was considered but not performed or refused? (CT, X-rays, U/S, labs)? Why? @ -None What meds were considered but not given or refused? Why? @ -None Did you discuss the management of the patient with other professionals (professionals i.e. , PA, URBAN REDEVELOPMENT SPECIALIST, lab, RT, psych nurse, nephrology social worker, tool technician, teacher, radiological defense officer, mattress spring encaser)? Give summary @ -No Was smoking cessation discussed for >3mins.? @ -No Was critical care preformed (if so, how long)? @ -No Were there social determinants of health that impacted care today? How? (Homelessness, low income, unemployed, alcoholism, drug addiction, transport ation, low edu. Level, literacy, decrease access to med. care, custodial, rehab)? @ -No Was there de-escalation of care discussed even if they declined (Discuss DNR or withdrawal of care, Hospice)? DNR status @ -No What co-morbidities impacted this encounter? (DM, HTN, Smoking, COPD, CAD, Cancer, CVA, ARF, Chemo, Hep., AIDS, mental health diagnosis, sleep apnea, morbid obesity)? @ -None Was patient admitted / discharged? Hospital course, mention meds given and route, prescriptions, significant lab abnormalities, going to OR and other pertinent info. @ -39-year-old male presented with chief complaint of cough, congestion, sore throat, fever. History and physical examination are conducted. He is negative for influenza, RSV, COVID, group A strep. Chest x-ray is positive for left lower lobe pneumonia. Patient will be treated with azithromycin. Provided with albuterol inhaler for home. Treated with Decadron and DuoNeb here in the ER. Educated on today's findings and treatment plan. Follow-up with PCP. Report back to ER with any new or worsening symptoms. Discussed return parameters and answered all questions. Patient conveyed verbal understanding and agreed to the plan. I discussed this case in detail with my attending Dr. Torrez Undiagnosed new problem with uncertain prognosis? @ -No Drug Therapy requiring intensive monitoring for toxicity (Heparin, Nitro, Insulin, Cardizem)? @ -No Were any procedures done? @ -No Diagnosis/symptom? @ -Pneumonia Acute, or Chronic, or Acute on Chronic? @ -Acute Uncomplicated (without systemic symptoms) or Complicated (systemic symptoms)? @ -Uncomplicated Side effects of treatment? @ -No Exacerbation, Progression, or Severe Exacerbation? @ -No Poses a threat to life or bodily function? How? (Chest pain, [place], SD, pneumonia, PE, COPD, DKA, ARF, appy, cholecystitis, CVA, Diverticulitis, Homicidal, Suicidal, threat to staff... and all critical care pts) @ -Potential with any infection, seemingly low likelihood at this time - Lab Data Lab Results 01/05/25 01/05/25 Range/Units 00:14 00:14 Influenza Type A (PCR) Not Detected (Not Detectd) Influenza Type B (PCR) Not Detected (Not Detectd) RSV (PCR) Not Detected (Not Detectd) SARS-CoV-2 (PCR) Not Detected (Not Detectd) Group A Strep (PCR) NOT DETECTED (Not Detectd) Disposition Clinical Impression: Pneumonia Disposition: HOME SELF-CARE Condition: Good Instructions (If sedation given, give patient instructions): Community Acquired Pneumonia (ED) Additional Instructions: Follow-up with your PCP. Report back to ER with any new or worsening symptoms. Take your medication as prescribed. Prescriptions: Albuterol Sulfate [Albuterol Sulfate Hfa] 1 puff PO Q4-6H PRN #8.5 gm PRN Reason: Shortness Of Breath Azithromycin [Zithromax Z Pack] 1 tab PO DIRECTED #6 tab Is patient prescribed a controlled substance at d/c from ED?: No Referrals: Alex Vallecillo DO [Primary Care Provider] - 1-2 days Time of Disposition: 02:00
--- NOTE | 2025-01-05 01:30 | XR ---
EXAM: XR Chest, 2 Views CLINICAL HISTORY: ITS.REASON XR Reason: cough TECHNIQUE: Frontal and lateral views of the chest. COMPARISON: No relevant prior studies available. FINDINGS: Lungs: LEFT lower lobe pneumonia. Pleural space: Unremarkable. No pneumothorax. Heart: Unremarkable. No cardiomegaly. Mediastinum: Unremarkable. Normal mediastinal contour. Bones/joints: Unremarkable. No acute fracture. IMPRESSION: LEFT lower lobe pneumonia.
[2025-01-05 01:54] LABS: Influenza A Not Detected (Not Detectd); Influenza B Not Detected (Not Detectd); RSV Not Detected (Not Detectd)
[2025-01-05] MEDS: DEXAMETHASONE SOD PHOSPHATE 10 MG/ML 1 ML VIAL IM STA (02:09)
[2025-01-05] MEDS: IPRATROPIUM-ALBUTEROL 3 ML NEB INHALATION STA (02:18)
[2025-01-05 02:26] VITALS: BP 118/87; PULSE 98; RESP 22
== END 2025-01-05 02:24 | disposition home or self-care (01) ==
LOC: EC 23:37
DX: J18.9 Pneumonia, unspecified organism (principal); Z87.891 Personal history of nicotine dependence; Z88.5 Allergy status to narcotic agent; Z88.6 Allergy status to analgesic agent
CPT/HCPCS: 94640; 87651; 87636; 71046; 99284; 96372; J1100